=== PATIENT | female | born 1970 | race Two or more races ===

== ENCOUNTER → 2023-12-27 | Outpatient (CLI) | payer BC, SELFPAY ==
--- NOTE | 2023-12-27 14:00 | XR_ITS ---
EXAMINATION: PET/CT FUSION SKULL TO THIGH EXAM DATE AND TIME: December 27, 2023 1509 hours Comparison May 29, 2023 INDICATIONS: Diagnosis lung cancer restaging post treatment CTDI:vol (mGy) 3.01 DLP: (mGycm) 263.20 PROCEDURE: 15.05 mCi FDG was administered intravenously To allow for distribution and uptake of radiotracer, the patient was allowed to rest quietly in a shielded room. Imaging was performed on an integrated 16-slice PET/CT scanner, with scanning from the skull base to the mid thigh. Serum blood glucose at the time of the injection was measured 76 mg/dL. CT scanning was performed without oral or intravenous contrast material. FINDINGS: Head and Neck: There is no luca hypermetabolism in the neck. The visualized portions of the brain are normal in appearance on CT. Chest: Non hypermetabolic right midlung nodule measures 15 mm compared to 15 mm on the prior study Abdomen and Pelvis: There is no luca hypermetabolism in retroperitoneal or pelvic chains. The spleen is normal in size and FDG avidity. Musculoskeletal: Stable sclerotic osseous metastases T2, L3, L5, posterior right iliac bone, roof and posterior margin left acetabulum, bilateral ribs without significant change IMPRESSION: 15 mm pulmonary nodule right midlung compared to 15 mm on the prior study, no new pulmonary nodules Stable osteoblastic metastatic disease
[2023-12-27 14:19] LABS: HCG Qualitative,Urine Negative
== END | disposition home or self-care (01) ==
LOC: CDIM 13:19 → COPL 14:28 → CDIM 01-25 05:57
PROVIDERS: Referring Provider Internal Medicine Hematology & Oncology; Visit Provider Internal Medicine Hematology & Oncology
DX: R91.1 Solitary pulmonary nodule (principal); C79.9 Secondary malignant neoplasm of unspecified site; C34.31 Malignant neoplasm of lower lobe, right bronchus or lung; C79.51 Secondary malignant neoplasm of bone
CPT/HCPCS: 78815; 81025; A9552

== ENCOUNTER 2024-01-01 09:33 | Outpatient (RCR) | payer BC, SELFPAY ==
--- NOTE | 2024-01-01 10:16 | CTCFLWUP_ITS ---
Juan Marcos [facility] [address] [place], [place] [address] FOLLOW-UP NOTE Date: 01/01/2024 MR#: [id number] Name: CHAD ROMAN : 1970 Dx: C34.31 Malignant neoplasm of lower lobe, right bronchus or lung Identification. 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 EGFR exon 19 deleted on osimertinib under Dr. Caldwell's direction Received 3000 send right posterior chest 09/12/1992 with relief of pain in right posterior chest site. Did develop radiation pneumonitis now resolved. Most recent PET scan 12/27/2023 shows stable 15 mm pulmonary nodule right midlung. No new pulmonary nodules. Stable osteoblastic met disease, T2 L3 L5 and roof and posterior margin left acetabulum karli ateral ribs. MRI of brain 12/07/2023 negative. Has occasional bone pain relieved with tramadol 50 mg as needed. Rest of symptoms largely improved. Lungs clear. A#!. 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 #2, prior radiation therapy to the right posterior rib cage 3000 cGy completed 09/12/1992. Developed r adiation pneumonitis now largely resolved. #3. recent PET scan shows stable right midlung and bony mets. #4. Tolerating the osimertinib for the EGFR exon 19 deleted adeno CA. #5. Being followed by Dr. Caldwell regularly #6. Managing patient's mild pain symptoms with tramadol as needed. Will see her again in 3 months. Electronically signed by: Daniel Thompson M.D. 01/01/2024 10:14 AM
== END 2024-01-12 23:59 | disposition home or self-care (01) ==
LOC: SCTC 09:33
PROVIDERS: PCP Nurse Anesthetist, Certified Registered; Referring Provider Nurse Anesthetist, Certified Registered; Visit Provider Radiology Therapeutic Radiology
DX: C34.31 Malignant neoplasm of lower lobe, right bronchus or lung (principal); C79.51 Secondary malignant neoplasm of bone; G89.3 Neoplasm related pain (acute) (chronic)
CPT/HCPCS: 99213; G0463

== ENCOUNTER → 2024-02-19 | Outpatient (CLI) | payer BC, SELFPAY ==
[2024-02-19 14:33] LABS: Basophils % (Auto) 0 % (0-2.5); Eosinophils % (Auto) 1 % (0-10); Hematocrit 31.5 % (36.0-46.0); Hemoglobin 10.5 g/dL (12.0-16.0); Immature Granulocytes % (Auto) 0 % (0-0); Immature Granulocytes Auto 0.01 Thou/mm3 (0.00-0.00); Lymphocytes # (Auto) 1.7 Thou/mm3 (1.0-4.8); Lymphocytes % (Auto) 37 % (10-50); Mean Corpuscular HGB Conc 33.3 g/dl (31.0-37.0); Mean Corpuscular Hemoglobin 30.8 pg (25.0-35.0); Mean Corpuscular Volume 92 fL (80-100); Monocytes # (Auto) 0.4 Thou/mm3 (0.0-0.8); Monocytes % (Auto) 9 % (0-12); Neutrophils # (Auto) 2.4 Thou/mm3 (1.8-7.7); Neutrophils % (Auto) 52 % (37-80); Nucleated Red Blood Cell % 0 /100 WBC (0); Platelet Count 258 Thou/mm3 (140-440); RDW Standard Deviation 51.9 fL (36.4-46.3); Red Blood Count 3.41 Miln/mm3 (4.00-5.20); White Blood Count 4.5 Thou/mm3 (3.6-11.0)
[2024-02-19 14:45] LABS: Alanine Aminotransferase 42 U/L (10-49); Albumin, Serum 4.9 gm/dL (3.5-5.0); Albumin/Globulin Ratio 2.1 (1.2-2.2); Alkaline Phosphatase 109 U/L (46-116); Anion Gap 9 (7-16); Aspartate Amino Transferase 33 U/L (0-34); BUN/Creatinine Ratio 16 Ratio (12-20); Bilirubin,Total 0.6 mg/dL (0.3-1.2); Blood Urea Nitrogen 16 mg/dL (9-23); Calcium 9.5 mg/dL (8.3-10.6); Calcium (Corrected) 9.5 mg/dL (8.5-10.1); Carbon Dioxide 27.5 mMol/L (20.0-31.0); Cardiac Risk Estimate 3.3 RATIO (3.7-5.6); Chloride 103 mMol/L (98-107); Cholesterol 273 mg/dL (132-200); Globulin 2.3 gm/dL (2.3-3.5); Glucose 92 mg/dL (74-106); HDL Cholesterol 83 mg/dL (40-60); LDL Cholesterol,Calculated 176 mg/dL (0-130); Osmolality,Calculated 278 (275-295); Potassium 4.4 mMol/L (3.4-5.1); Sodium 139 mMol/L (136-145); Total Protein 7.2 gm/dL (5.7-8.2); Triglycerides 70 mg/dL (30-150); eGFR > 60 See Note
[2024-02-20 02:38] LABS: Ferritin 43 ng/mL (7.3-270.7); Iron 71 mcg/dL (50-170); Percent Iron Saturation 22 % (20-55); Total Iron Binding Capacity 315 mcg/dL (250-425); Unsaturated Iron Binding 244 (225-295)
== END | disposition home or self-care (01) ==
LOC: COPL 13:28
PROVIDERS: PCP Nurse Anesthetist, Certified Registered; Referring Provider Nurse Anesthetist, Certified Registered; Visit Provider Internal Medicine Hematology & Oncology
DX: C34.31 Malignant neoplasm of lower lobe, right bronchus or lung (principal); C79.51 Secondary malignant neoplasm of bone; E78.5 Hyperlipidemia, unspecified; D64.9 Anemia, unspecified
CPT/HCPCS: 36415; 80053; 80061; 82728; 83540; 83550; 85025

== ENCOUNTER 2024-02-20 15:57 | Outpatient (RCR) | payer BC, SELFPAY ==
--- NOTE | 2024-02-21 01:29 | CTCFLWUP_ITS ---
Patient: CHAD ROMAN : 1970 Page 8 of 9 FOLLOW UP NOTE DATE OF SERVICE: 02/20/2024 NAME: CHAD ROMAN ACCOUNT: [id number] : 1970 AGE: 53 INTERVAL HISTORY: Patient feels better now as her radiation pneumonitis have resolved. Patient is doing very well on T agrisso. 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 Patient denies any history of cigarette smoking or exposure to secondhand smoking. 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 Improved Sta tus postradiation therapy to the right posterior chest (08/30/2022 - 09/12/2022) Status post radiation p neumonitis treated with prednisone (11/08/2022) Stage IV EGFR exon 19 deleted adenocarcinoma of the gamal ng with osseous metastasis (05/09/2022) Osimertinib started on 06/08/2022. Ms. Roman is a non-smoker. No history of exposure to secondhand smoking 04/07/2022: Ms. Roman had ultrasound of the soft tissue of the neck to evaluate palpable lump on the l eft side of the neck. 04/12/2022: CT scan of soft tissue of the neck and chest with IV contrast? 05/09/2022: Patient had CT-guided biopsy of the right lung mass? 06/08/2022: Patient started on osimertinib 80 mg p.o. daily. 06/09/2022: PET/CT scan? 07/04/22: MRI thoracic spine wo/w contrast 07/04/22: MRI lumbar spine wo/w contrast 08/30/2022 - 09/12/2022: Ms. Roman had 3000 cGy radiation therapy to the right posterior chest. 11/08/2022: Radiation pneumonitis. Patient is started on prednisone. 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 Caltrate-600 Plus Vitamin D3 - 600 mg(1,500mg) -400 unit 1 tab Twice a Day 2. Lipitor - 10 mg 1 tab Daily 3. osimertinib - 80 mg 1 tab Daily 4. traMADol - 50 mg 1 tab q6 Medications Last Reconciled by Vale Huang MA on 02/20/2024 ALLERGIES: No Known Allergies REVIEW OF SYSTEMS: A complete 14-point review of systems was performed and is negative except as noted in interval histo ry. PHYSICAL EXAMINATION: VITAL SIGNS: PAIN: 0 - No pain ECOG Performance Status: 0 - Asymptomatic and fully active GENERAL APPEARANCE: Appears well, in no apparent distress, appropriately interactive. HEENT: Normocephalic, no temporal wasting, normal conjunctiva, no scleral icterus, normal hearing, li ps without lesions, neck normal range of motion. CARDIOVASCULAR: Not assessed. PULMONARY: Normal respiratory effort, no respiratory distress or use of accessory muscles, speaking i n full sentences, no tachypnea. EXTREMITIES: No pedal edema or cyanosis. SKIN: Normal skin appearance. NEUROLOGIC: Alert and oriented x4. PSHYCHIATRIC: Appropriate affect, mood normal, behavior normal, intact thought and speech. LABORATORY DATA: I have personally reviewed and interpreted each of the patient?s relevant lab tests, abnormal finding s are below: Date 02/19/24 ??WHITE?BLOOD?COUNT?(Thou/mm3) 4.5 ??RED?BLOOD?COUNT?(Miln/mm3) 3.41?L ??HEMOGLOBIN?(gm/dl) 10.5?L ??HEMATOCRIT?(%) 31.5?L ??PLATELET?COUNT?(Thou/mm3) 258 ??NEUTROPHILS?%,?AUTO?(%) 52 ??LYMPH?%,?AUTO?(%) 37 ??NEUTROPHILS,?AUTO?(Thou/mm3) 2.4 ASSESSMENT/PLAN: #1 stage IV metastatic adenocarcinoma of the lung Stage IV EGFR exon 19 deleted adenocarcinoma of th e lung with osseous metastasis (05/09/2022) Status postradiation therapy to the right posterior chest completed on 09/12/2022 Tolerating osimertinib well with mild occasional diarrhea. Last PET scan reviewed and shows complete metabolic response patient is non-smoker Consult for adhere nce to therapy Continue osimertinib 80 mg daily Will get brain MRI to stage Need echocardiogram every 3 months #2 osteolytic lesions from metastatic disease Continue taking calcium and vitamin 0 daily Patient have peritoneal disease and need dental workup. Advised to stop Xgeva and wait for another 3 to 4 months and get the dental procedure done. After waiting for 3 to 4 months at that time will re sume Xgeva. Brain MRI is negative and echo is stable CBC CMP every month imaging every 3 to 6 months echo every 3 months ORDERS: Echocardiogram in 3 months CBC CMP RETURN TO CLINIC: And will do PET CT scan at that timeI will see her back in the clinic in 3 months. BILLING AND COMPLIANCE: I reviewed external records from providers outside my specialty as summarized above. I spent a total of 50 minutes on this patient?s care on the day of their visit excluding time spent related to any bi lled procedures. This time includes time spent with the patient as well as time spent documenting in the medical record, reviewing patients records and tests, obtaining history, placing orders, communi cating with other healthcare professionals, counseling the patient, family or caregiver, and/or care coordination for the diagnoses above. Electronically Signed by: Dylan Caldwell MD T: 1:27 AM CC: PCP: Sunday Saravia Referring: Sunday Saravia This document was completed utilizing speech recognition software. Grammatical errors, random word in sertions, pronoun errors, and incomplete sentences are an occasional consequence of this system due t o software limitations, ambient noise, and hardware issues. Any formal questions or concerns about th e content, text or information contained within the body of this dictation should be directly address ed to the provider for clarification.
== END 2024-03-14 23:59 | disposition home or self-care (01) ==
LOC: SCTC 15:57
PROVIDERS: PCP Nurse Anesthetist, Certified Registered; Referring Provider Nurse Anesthetist, Certified Registered; Visit Provider Internal Medicine Hematology & Oncology
DX: C34.31 Malignant neoplasm of lower lobe, right bronchus or lung (principal); C79.51 Secondary malignant neoplasm of bone; Z92.3 Personal history of irradiation
CPT/HCPCS: 99212; G0463

== ENCOUNTER 2024-04-02 08:42 | Outpatient (RCR) | payer BC, SELFPAY ==
--- NOTE | 2024-04-02 09:21 | CTCFLWUP_ITS ---
Juan Marcos [facility] [address] [place], [place] [address] FOLLOW-UP NOTE Date: 04/02/2024 MR#: [id number] Name: CHAD ROMAN : 1970 Dx: C34.31 Malignant neoplasm of lower lobe, right bronchus or lung Identification. 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 EGFR exon 19 deleted on osimertinib under Dr. Caldwell's direction. Received 2000 cGy right posterior chest 09/12/2022 with relief of pain in right posterior chest site. Did develop radiation pneumonitis now resolved. Most recent PET scan 12/27/2023 shows stable 15 mm pulmonary nodule right midlung with no new pulmonary nodules. Stable osteoblastic met disease: T2 L3 L5 and roof and posterior margin left acetabular bilateral ribs. Recent echo 03/13/2024 appears stable compared to 12/06/2023. A#1. Stage IV metastatic adenocarcinoma lung EGFR exon 19 deleted adeno CA the lung with the osseous mets. A#2. XRT to posterior chest site with relief of pain symptoms. Pneumonitis resolved. A#3. On osimertinib under Dr. Caldwell's direction. A#4. Xgeva is currently being held due to dental work being planned. A#5, Pain is fairly mild using tramadol only sparingly. A#6. I will see patient again in 3 months. Electronically signed by: Daniel Thompson M.D. 04/02/2024 9:18 AM
== END 2024-04-11 23:59 | disposition home or self-care (01) ==
LOC: SCTC 08:42
PROVIDERS: PCP Family Medicine; Referring Provider Family Medicine; Visit Provider Radiology Therapeutic Radiology
DX: C34.31 Malignant neoplasm of lower lobe, right bronchus or lung (principal); C79.51 Secondary malignant neoplasm of bone
CPT/HCPCS: 99212; G0463

== ENCOUNTER → 2024-05-15 | Outpatient (CLI) | payer BC, SELFPAY ==
[2024-05-15 14:27] LABS: Basophils % (Auto) 0 % (0-2.5); Eosinophils # (Auto) 0.1 Thou/mm3 (0.0-0.5); Eosinophils % (Auto) 2 % (0-10); Hemoglobin 11.5 g/dL (12.0-16.0); Immature Granulocytes % (Auto) 1 % (0-0); Immature Granulocytes Auto 0.05 Thou/mm3 (0.00-0.00); Lymphocytes # (Auto) 1.7 Thou/mm3 (1.0-4.8); Lymphocytes % (Auto) 29 % (10-50); Mean Corpuscular HGB Conc 33.8 g/dl (31.0-37.0); Mean Corpuscular Hemoglobin 30.8 pg (25.0-35.0); Mean Corpuscular Volume 91 fL (80-100); Monocytes # (Auto) 0.5 Thou/mm3 (0.0-0.8); Monocytes % (Auto) 9 % (0-12); Neutrophils # (Auto) 3.4 Thou/mm3 (1.8-7.7); Neutrophils % (Auto) 59 % (37-80); Nucleated Red Blood Cell % 0 /100 WBC (0); Platelet Count 220 Thou/mm3 (140-440); RDW Standard Deviation 49.1 fL (36.4-46.3); Red Blood Count 3.73 Miln/mm3 (4.00-5.20); White Blood Count 5.7 Thou/mm3 (3.6-11.0)
[2024-05-15 14:33] LABS: Alanine Aminotransferase 51 U/L (10-49); Albumin, Serum 4.9 gm/dL (3.5-5.0); Albumin/Globulin Ratio 1.7 (1.2-2.2); Alkaline Phosphatase 107 U/L (46-116); Anion Gap 11 (7-16); Aspartate Amino Transferase 58 U/L (0-34); BUN/Creatinine Ratio 13 Ratio (12-20); Bilirubin,Total 0.8 mg/dL (0.3-1.2); Blood Urea Nitrogen 13 mg/dL (9-23); Calcium 9.7 mg/dL (8.3-10.6); Calcium (Corrected) 9.7 mg/dL (8.5-10.1); Carbon Dioxide 23.8 mMol/L (20.0-31.0); Chloride 102 mMol/L (98-107); Globulin 2.9 gm/dL (2.3-3.5); Glucose 97 mg/dL (74-106); Osmolality,Calculated 273 (275-295); Potassium 4.4 mMol/L (3.4-5.1); Sodium 137 mMol/L (136-145); Total Protein 7.8 gm/dL (5.7-8.2); eGFR > 60 See Note
== END | disposition home or self-care (01) ==
LOC: SCTO 12:52
PROVIDERS: PCP Family Medicine; Referring Provider Internal Medicine Hematology & Oncology; Visit Provider Internal Medicine Hematology & Oncology
DX: C34.31 Malignant neoplasm of lower lobe, right bronchus or lung (principal); C79.51 Secondary malignant neoplasm of bone
CPT/HCPCS: 36415; 80053; 85025

== ENCOUNTER → 2024-05-27 | Outpatient (CLI) | payer BC, SELFPAY ==
--- NOTE | 2024-05-27 13:30 | ECHO_ITS ---
Transthoracic Echo Report Ht (in): 59 Wt (lb): 125 Exam Location: Echo Lab Status: Preadmit Refurbish Technician: NATALYA Aguirre^^^^ Indications: Procedure Performed: BP: / HR: MEASUREMENTS (Male / Female) Normal Values 2D ECHO LVOT Diameter 1.4 cm Aortic Root Diameter 2.6 cm LA Systolic Diameter LX 2.6 cm 3.0 - 4.0 / 2.7 - 3.8 cm LV Ejection Fraction MOD 4C 67.1 % LV Ejection Fraction 4C AL 67.7 % DOPPLER AV Peak Velocity 135.0 cm/s AV Peak Gradient 7.3 mmHg AV Mean Gradient 4.0 mmHg AV Velocity Time Integral 26.0 cm LVOT Peak Velocity 70.2 cm/s LVOT Peak Gradient 2.0 mmHg LVOT Velocity Time Integral 18.9 cm AV Area Cont Eq vti 1.1 cm? AV Area Cont Eq pk 0.8 cm? MV Area PHT 5.6 cm? MR Peak Velocity 270.0 cm/s MR Peak Gradient 29.2 mmHg Mitral E Point Velocity 99.8 cm/s Mitral A Point Velocity 91.1 cm/s Mitral E to A Ratio 1.1 LV E' Septal Velocity 54.1 cm/s Mitral E to LV E' Septal Ratio 1.8 TR Peak Velocity 178.0 cm/s TR Peak Gradient 12.7 mmHg PV Peak Velocity 93.3 cm/s PV Peak Gradient 3.5 mmHg RVOT Peak Velocity 63.5 cm/s FINDINGS Left Ventricle Normal left ventricular size, wall thickness, systolic function with no obvious regional wall motion abnormalities. Normal left ventricular diastolic filling pattern for age. The ejection fraction is visually estimated at 60-65 %. Right Ventricle The right ventricle is normal in size and systolic function. The estimated right ventricular systolic pressure, 17 mmHg. Left Atrium The left atrium is normal by two-dimensional, color flow and Doppler imaging with no structural abnormalities, no thrombus formation present. Right Atrium The right atrium is normal by two-dimensional imaging, color flow and Doppler imaging with no structural abnormalities, no thrombus formation present. Atrial Septum The interatrial septum appears normal with no evidence of a shunt. Aorta The aorta is normal by two-dimensional, color flow and Doppler interrogation. Mitral Valve Mild mitral regurgitation. Mild mitral annular calcification. Aortic Valve Aortic valve sclerosis. Tricuspid Valve There is mild tricuspid valve regurgitation. Pulmonic Valve The pulmonic valve is not well visualized. There is no significant pulmonic valve regurgitation. Vessels The pulmonary artery appears normal. The inferior vena cava pulmonary and hepatic veins appear normal. Pericardium The pericardium is normal by two-dimensional imaging. There is no significant pericardial effusion. CONCLUSIONS indication: Cancer center The transthoracic study is normal by two-dimensional, color flow imaging and Doppler interrogation. Normal left ventricular size and function. Approximate ejection fraction is 65%. Trace mitral and trace tricuspid regurgitation No wall motion abnormalities seen Alona Corley (Electronically Signed) Final Date: 28 May 2024 11:54
== END | disposition home or self-care (01) ==
PROVIDERS: PCP Family Medicine; Referring Provider Internal Medicine Hematology & Oncology; Visit Provider Internal Medicine Hematology & Oncology
DX: I08.1 Rheumatic disorders of both mitral and tricuspid valves (principal); C34.31 Malignant neoplasm of lower lobe, right bronchus or lung; C79.51 Secondary malignant neoplasm of bone
CPT/HCPCS: 93306

== ENCOUNTER → 2024-06-06 | Outpatient (CLI) | payer BC, SELFPAY ==
[2024-06-06 12:56] LABS: Basophils % (Auto) 1 % (0-2.5); Eosinophils # (Auto) 0.1 Thou/mm3 (0.0-0.5); Eosinophils % (Auto) 2 % (0-10); Hematocrit 32.5 % (36.0-46.0); Hemoglobin 11.1 g/dL (12.0-16.0); Immature Granulocytes % (Auto) 0 % (0-0); Immature Granulocytes Auto 0.01 Thou/mm3 (0.00-0.00); Lymphocytes # (Auto) 1.8 Thou/mm3 (1.0-4.8); Lymphocytes % (Auto) 33 % (10-50); Mean Corpuscular HGB Conc 34.2 g/dl (31.0-37.0); Mean Corpuscular Hemoglobin 30.8 pg (25.0-35.0); Mean Corpuscular Volume 90 fL (80-100); Monocytes # (Auto) 0.6 Thou/mm3 (0.0-0.8); Monocytes % (Auto) 12 % (0-12); Neutrophils # (Auto) 2.8 Thou/mm3 (1.8-7.7); Neutrophils % (Auto) 52 % (37-80); Nucleated Red Blood Cell % 0 /100 WBC (0); Platelet Count 241 Thou/mm3 (140-440); RDW Standard Deviation 50.6 fL (36.4-46.3); White Blood Count 5.4 Thou/mm3 (3.6-11.0)
[2024-06-06 13:15] LABS: Alanine Aminotransferase 14 U/L (10-49); Albumin, Serum 4.6 gm/dL (3.5-5.0); Albumin/Globulin Ratio 1.8 (1.2-2.2); Alkaline Phosphatase 64 U/L (46-116); Anion Gap 9 (7-16); Aspartate Amino Transferase 23 U/L (0-34); BUN/Creatinine Ratio 12 Ratio (12-20); Bilirubin,Total 0.8 mg/dL (0.3-1.2); Blood Urea Nitrogen 12 mg/dL (9-23); Calcium 9.6 mg/dL (8.3-10.6); Calcium (Corrected) 9.6 mg/dL (8.5-10.1); Carbon Dioxide 27.7 mMol/L (20.0-31.0); Chloride 105 mMol/L (98-107); Globulin 2.6 gm/dL (2.3-3.5); Glucose 94 mg/dL (74-106); Osmolality,Calculated 282 (275-295); Potassium 3.9 mMol/L (3.4-5.1); Sodium 142 mMol/L (136-145); Total Protein 7.2 gm/dL (5.7-8.2); eGFR > 60 See Note
== END | disposition home or self-care (01) ==
LOC: SCTO 12:01
PROVIDERS: PCP Family Medicine; Referring Provider Internal Medicine Hematology & Oncology; Visit Provider Internal Medicine Hematology & Oncology
DX: C34.31 Malignant neoplasm of lower lobe, right bronchus or lung (principal); C79.51 Secondary malignant neoplasm of bone
CPT/HCPCS: 36415; 80053; 85025

== ENCOUNTER 2024-06-09 15:28 | Outpatient (RCR) | payer BC, SELFPAY ==
--- NOTE | 2024-05-20 22:45 | CTCFLWUP_ITS ---
Patient: CHAD ROMAN : 1970 Page 8 of 9 FOLLOW UP NOTE DATE OF SERVICE: 05/20/2024 NAME: CHAD ROMAN ACCOUNT: [id number] : 1970 AGE: 53 INTERVAL HISTORY: Patient is very restless. She has developed a rash on her legs as well as on her buttocks. She has been planning for a trip to [place]. Patient has been trying to lose weight and have lost about 11 pounds. Patient feels dizzy at times. 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 Patient denies any history of cigarette smoking or exposure to secondhand smoking. 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 Ms. Roman is a non-smoker. No history of exposure to secondhand smoking 04/07/2022: Ms. Roman had ultrasound of the soft tissue of the neck to evaluate palpable lump on the left side of the neck. 04/12/2022: CT scan of soft tissue of the neck and chest with IV contrast? 05/09/2022: Patient had CT-guided biopsy of the right lung mass? 06/08/2022: Patient started on osimertinib 80 mg p.o. daily. 06/09/2022: PET/CT scan? 07/04/22: MRI thoracic spine wo/w contrast 07/04/22: MRI lumbar spine wo/w contrast 08/30/2022 - 09/12/2022: Ms. Roman had 3000 cGy radiation therapy to the right posterior chest. 11/08/2022: Radiation pneumonitis. Patient is started on prednisone. 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 Caltrate-600 Plus Vitamin D3 - 600 mg(1,500mg) -400 unit 1 tab Twice a Day 2. Lipitor - 10 mg 1 tab Daily 3. osimertinib - 80 mg 1 tab Daily 4. traMADol - 50 mg 1 tab q6 5. Triamcinolone Acetonide (Top) - 0.025 % As directed Medications Last Reconciled by Annmarie Gramajo RN on 05/20/2024 ALLERGIES: No Known Allergies REVIEW OF SYSTEMS: A complete 14-point review of systems was performed and is negative except as noted in interval history. PHYSICAL EXAMINATION: VITAL SIGNS: Temperature?98.1, B/P?102/66, Oxygen?Saturation?97% Weight?120?lbs PAIN: 0 - No pain ECOG Performance Status: 1 - Symptomatic; ambulatory; restricted in strenuous activity GENERAL APPEARANCE: Appears well, in no apparent distress, appropriately interactive. HEENT: Normocephalic, no temporal wasting, normal conjunctiva, no scleral icterus, normal hearing, lips without lesions, neck normal range of motion. CARDIOVASCULAR: Not assessed. PULMONARY: Normal respiratory effort, no respiratory distress or use of accessory muscles, speaking in full sentences, no tachypnea. EXTREMITIES: No pedal edema or cyanosis. SKIN: Normal skin appearance. NEUROLOGIC: Alert and oriented x4. PSHYCHIATRIC: Appropriate affect, mood normal, behavior normal, intact thought and speech. LABORATORY DATA: I have personally reviewed and interpreted each of the patient?s relevant lab tests, abnormal findings are below: Date 02/19/24 05/15/24 ??WHITE?BLOOD?COUNT?(Thou/mm3) 4.5 5.7 ??RED?BLOOD?COUNT?(Miln/mm3) 3.41?L 3.73?L ??HEMOGLOBIN?(gm/dl) 10.5?L 11.5?L ??HEMATOCRIT?(%) 31.5?L 34.0?L ??PLATELET?COUNT?(Thou/mm3) 258 220 ??NEUTROPHILS?%,?AUTO?(%) 52 59 ??LYMPH?%,?AUTO?(%) 37 29 ??NEUTROPHILS,?AUTO?(Thou/mm3) 2.4 3.4 ??GLUCOSE,RANDOM?(mg/dL) 92 97 ??BLOOD?UREA?NITROGEN?(mg/dL) 16 13 ??CREATININE?(mg/dL) 1.00 1.00 ??SODIUM?(mmol/L) 139 137 ??POTASSIUM?(mmol/L) 4.4 4.4 ??CHLORIDE?(mmol/L) 103 102 ??CrCl?(CandG)?(ml/min) 61.48 62.43 ??AST/SGOT?(Unit/L) 33 58?H ??ALT/SGPT?(Unit/L) 42 51?H ??ALKALINE?PHOSPHATASE?(Unit/L) 109 107 ??BILIRUBIN,?TOTAL?(mg/dL) 0.6 0.8 ??PROTEIN?TOTAL?(gm/dl) 7.2 7.8 ??ALBUMIN,?SERUM?(gm/dl) 4.9 4.9 ??GLOBULIN?(gm/dl) 2.3 2.9 ??ALBUMIN/GLOBULIN?RATIO 2.1 1.7 ??CALCIUM,?SERUM?(mg/dL) 9.5 9.7 ??CALCIUM?SERUM?(CORRECTED)?(mg/dL) 9.5 9.7 ASSESSMENT/PLAN: #1 stage IV metastatic adenocarcinoma of the lung 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 Last PET scan reviewed and shows complete metabolic response patient is non- smoker Consult for adherence to therapy Continue osimertinib 80 mg daily Echo is stable #2 rash likely from Tagrisso Hold Tagrisso and all other supplements Will start on hydroxyzine and prednisone Once rash resolves. Will restart Tagrisso and see if reoccurs #3 dizziness Patient's blood pressure is very low and have tachycardia Patient has not taken any water since morning Encouraged oral hydration Will bring her to get IV fluids .. Advised patient to take balanced diet and not to do extreme dieting to lose weight Labs and fluids tomorrow Even though patient's weight loss may be because of restriction of diet by Ms. Roman it is concerning as patient have stage IV cancer Will get PET CT scan to evaluate recurrent cancer I will also get a brain MRI as patient has been having dizziness ORDERS: Order # Description [id number] Comprehensive Metabolic Panel - 12 + CBC with Auto Diff [id number] Follow Up 4 Week RETURN TO CLINIC: 4 weeks BILLING AND COMPLIANCE: I reviewed external records from providers outside my specialty as summarized above. I spent a total of 50 minutes on this patient?s care on the day of their visit excluding time spent related to any billed procedures. This time includes time spent with the patient as well as time spent documenting in the medical record, reviewing patients records and tests, obtaining history, placing orders, communicating with other healthcare professionals, counseling the patient, family or caregiver, and/or care coordination for the diagnoses above. Electronically Signed by: Dylan Caldwell MD T: 10:43 PM CC: PCP: Shaila Read Referring: Shaila Read This document was completed utilizing speech recognition software. Grammatical errors, random word insertions, pronoun errors, and incomplete sentences are an occasional consequence of this system due to software limitations, ambient noise, and hardware issues. Any formal questions or concerns about the content, text or information contained within the body of this dictation should be directly addressed to the provider for clarification.
[2024-05-21 16:28] LABS: Alanine Aminotransferase 22 U/L (10-49); Albumin, Serum 4.5 gm/dL (3.5-5.0); Albumin/Globulin Ratio 1.6 (1.2-2.2); Alkaline Phosphatase 85 U/L (46-116); Anion Gap 10 (7-16); Aspartate Amino Transferase 29 U/L (0-34); BUN/Creatinine Ratio 11 Ratio (12-20); Bilirubin,Total 0.5 mg/dL (0.3-1.2); Blood Urea Nitrogen 11 mg/dL (9-23); Calcium 9.1 mg/dL (8.3-10.6); Calcium (Corrected) 9.1 mg/dL (8.5-10.1); Carbon Dioxide 23.2 mMol/L (20.0-31.0); Chloride 103 mMol/L (98-107); Globulin 2.8 gm/dL (2.3-3.5); Glucose 108 mg/dL (74-106); Osmolality,Calculated 272 (275-295); Potassium 3.5 mMol/L (3.4-5.1); Sodium 136 mMol/L (136-145); Total Protein 7.3 gm/dL (5.7-8.2); eGFR > 60 See Note
--- NOTE | 2024-06-10 01:30 | CTCFLWUP_ITS ---
Patient: CHAD ROMAN : 1970 Page 9 of 11 FOLLOW UP NOTE DATE OF SERVICE: 06/09/2024 NAME: CHAD ROMAN ACCOUNT: [id number] : 1970 AGE: 53 INTERVAL HISTORY: Cuong Hopkins, a 53-year-old female with a history of lung cancer on Tagrisso, presents with a persistent rash on her legs and buttocks, whitening of eyebrows, and morning stiffness. The rash developed after a trip to [place] and has not fully resolved despite stopping Tagrisso and treatment with prednisone and hydroxyzine. She reports difficulty getting up in the morning, suggesting possible joint pain. A dermatology evaluation and possible biopsy are needed for the rash, and further evaluation is required for her joint symptoms. Tagrisso will be restarted, and a PET scan and brain MRI will be ordered to assess cancer response and monitor for metastases. Chief Complaint Persistent rash on legs and buttocks, whitening of eyebrows, difficulty getting up from bed in the morning History of Present Illness Cuong Hopkins, a 53-year-old female with a history of lung cancer on Tagrisso treatment, presents for follow-up of a persistent rash on her legs and buttocks that developed after a trip to [place] approximately 20 days ago. The patient initially experienced light-headedness and dizziness, which have since resolved. The rash, which began after the patient's [place] trip, has improved but not fully resolved despite treatment. It is described as resembling eczema and is located on the legs and buttocks. The patient reports that the rash is itchy. Previous rord-vev-olubpcv treatments that helped with past eczema-like symptoms have not been effective for this current rash. The patient's eyebrows are also whitening, which is noted as unusual for her age. In addition to the skin concerns, the patient reports difficulty getting up from bed in the morning, suggesting possible joint stiffness or pain. It is unclear if this symptom varies throughout the day or if there are any associated joint swelling or deformities. The patient discontinued Tagrisso on May 21 due to the rash and has been off the medication for about 20 days. She was previously treated with prednisone and hydroxyzine for the rash, which provided some improvement but did not fully resolve the symptoms. The patient has not yet seen a stoneworking belt sander for evaluation of the rash or had a biopsy performed. The patient mentions a positive LUIS test result but does not report any specific symptoms typically associated with autoimmune conditions, such as joint pain, stiffness, or swelling. She is planning a trip to [place] on June 30. Medical History - Lung cancer, on Tagrisso treatment for a couple of years - Eczema, history unclear but mentioned as a possibility - Positive LUIS test, significance unclear without symptoms Medications and Supplements - Tagrisso - Stopped on May 21 due to rash. - Prednisone - Given for rash. - Hydroxyzine - Given for rash. Social History - Travel: Recent trip to [place], planning another trip to [place] on June 30 - Diet: Was trying to lose weight, advised to stop dieting and resume normal food intake - Stress: Eczema can occur under stress (implied patient may be experiencing stress) - Lifestyle: Advised to avoid synthetic fabrics and use 100% cotton clothing - Hygiene: Recommended to avoid daily showers, take water-only showers if necessary Review of Systems General: Positive for dizziness (resolved), light-headedness (resolved). Skin: Positive for persistent rash on legs and buttocks, itching. Negative for eczema history. HEENT: Positive for whitening eyebrows. Musculoskeletal: Positive for difficulty getting up from bed in the morning, joint pain. ONCOLOGY HISTORY:?[facility] Hx? 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 Patient denies any history of cigarette smoking or exposure to secondhand smoking. 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 Ms. Roman is a non-smoker. No history of exposure to secondhand smoking 04/07/2022: Ms. Roman had ultrasound of the soft tissue of the neck to evaluate palpable lump on the left side of the neck. 04/12/2022: CT scan of soft tissue of the neck and chest with IV contrast? 05/09/2022: Patient had CT-guided biopsy of the right lung mass? 06/08/2022: Patient started on osimertinib 80 mg p.o. daily. 06/09/2022: PET/CT scan? 07/04/22: MRI thoracic spine wo/w contrast 07/04/22: MRI lumbar spine wo/w contrast 08/30/2022 - 09/12/2022: Ms. Roman had 3000 cGy radiation therapy to the right posterior chest. 11/08/2022: Radiation pneumonitis. Patient is started on prednisone. 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 Caltrate-600 Plus Vitamin D3 - 600 mg(1,500mg) -400 unit 1 tab Twice a Day 2. hydrOXYzine HCl - 10 mg 1 tab Daily 3. Lipitor - 10 mg 1 tab Daily 4. omeprazole - 20 mg 1 tab Daily 5. osimertinib - 80 mg 1 tab Daily 6. traMADol - 50 mg 1 tab q6 7. Triamcinolone Acetonide (Top) - 0.025 % As directed?[facility] Meds? Medications Last Reconciled by Ashley Hudson MA on 06/09/2024 ALLERGIES: No Known Allergies REVIEW OF SYSTEMS: A complete 14-point review of systems was performed and is negative except as noted in interval history. PHYSICAL EXAMINATION:?[facility] PE? VITAL SIGNS: Temperature?99.2, B/P?108/73, Oxygen?Saturation?98% Weight?121?lbs (Change?since?05/21/24:?-3.4?lbs) PAIN: 0 - No pain ECOG Performance Status: 1 - Symptomatic; ambulatory; restricted in strenuous activity GENERAL APPEARANCE: Appears well, in no apparent distress, appropriately interactive. HEENT: Normocephalic, no temporal wasting, normal conjunctiva, no scleral icterus, normal hearing, lips without lesions, neck normal range of motion. CARDIOVASCULAR: Not assessed. PULMONARY: Normal respiratory effort, no respiratory distress or use of accessory muscles, speaking in full sentences, no tachypnea. EXTREMITIES: No pedal edema or cyanosis. SKIN: Rash present on legs and buttocks. Rash has improved but not fully resolved. Appearance consistent with eczema.. NEUROLOGIC: Alert and oriented x4. PSHYCHIATRIC: Appropriate affect, mood normal, behavior normal, intact thought and speech. LABORATORY DATA: I have personally reviewed and interpreted each of the patient?s relevant lab tests, abnormal findings are below: Date 05/15/24 05/21/24 06/06/24 ??WHITE?BLOOD?COUNT?(Thou/mm3) ? ? 5.4 ??RED?BLOOD?COUNT?(Miln/mm3) ? ? 3.60?L ??HEMOGLOBIN?(gm/dl) ? ? 11.1?L ??HEMATOCRIT?(%) ? ? 32.5?L ??PLATELET?COUNT?(Thou/mm3) ? ? 241 ??NEUTROPHILS?%,?AUTO?(%) ? ? 52 ??LYMPH?%,?AUTO?(%) ? ? 33 ??NEUTROPHILS,?AUTO?(Thou/mm3) ? ? 2.8 ??GLUCOSE,RANDOM?(mg/dL) 97 108?H 94 ??BLOOD?UREA?NITROGEN?(mg/dL) 13 11 12 ??CREATININE?(mg/dL) 1.00 1.00 1.00 ??SODIUM?(mmol/L) 137 136 142 ??POTASSIUM?(mmol/L) 4.4 3.5 3.9 ??CHLORIDE?(mmol/L) 102 103 105 ??CrCl?(CandG)?(ml/min) 62.43 59.29 59.29 ??AST/SGOT?(Unit/L) 58?H 29 23 ??ALT/SGPT?(Unit/L) 51?H 22 14 ??ALKALINE?PHOSPHATASE?(Unit/L) 107 85 64 ??BILIRUBIN,?TOTAL?(mg/dL) 0.8 0.5 0.8 ??PROTEIN?TOTAL?(gm/dl) 7.8 7.3 7.2 ??ALBUMIN,?SERUM?(gm/dl) 4.9 4.5 4.6 ??GLOBULIN?(gm/dl) 2.9 2.8 2.6 ??ALBUMIN/GLOBULIN?RATIO 1.7 1.6 1.8 ??CALCIUM,?SERUM?(mg/dL) 9.7 9.1 9.6 ??CALCIUM?SERUM?(CORRECTED)?(mg/dL) 9.7 9.1 9.6 Physical Examination Skin: Rash present on legs and buttocks. Rash has improved but not fully resolved. Appearance consistent with eczema. Laboratory, Imaging, and Diagnostic Test Results - LUIS: PositiveASSESSMENT/PLAN:?Aurelio Caldwell Assessment/Plan? 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 Last PET scan reviewed and shows complete metabolic response patient is non- smoker Consult for adherence to therapy rash likely from Tagrisso Hold Tagrisso and all other supplements Will start on hydroxyzine and prednisone Once rash resolves. Will restart Tagrisso and see if reoccurs #3 dizziness Resolved Cuong Hopkins, a 53-year-old female with a history of lung cancer on Tagrisso, presents with persistent rash on legs and buttocks after a trip to [place], along with morning stiffness and joint pain. Persistent rash Assessment: Patient developed a rash on legs and buttocks after a trip to [place]. The rash has improved but persists despite stopping Tagrisso and treatment with prednisone and hydroxyzine. The appearance is consistent with eczema, though a definitive diagnosis has not been made. Differential diagnoses include drug-related rash from Tagrisso versus eczema. The rash has not fully resolved after 20 days off Tagrisso. A dermatology evaluation and possible biopsy are needed for definitive diagnosis. Plan: - Restart Tagrisso before upcoming [place] trip on June 30 - Apply triamcinolone cream twice daily until symptoms disappear - Use non-scented soap and consider oatmeal or milk baths - Avoid hot water baths and use CeraVe or similar moisturizers - Wear 100% cotton clothing and avoid synthetic fabrics - Schedule follow-up appointment with stoneworking belt sander for evaluation and possible biopsy - Monitor for worsening symptoms; if occurs, stop Tagrisso and return for evaluation - Follow-up appointment in 2 weeks Lung cancer on Tagrisso therapy Assessment: Patient has been on Tagrisso for a couple of years for lung cancer treatment. Current status of cancer response is unknown. Treatment was temporarily discontinued due to rash. There is a need to assess cancer response and monitor for potential brain metastases. Plan: - Restart Tagrisso before [place] trip on June 30 - Order PET scan to assess cancer response - Order brain MRI to monitor for potential brain metastases (to be done one month after PET scan) - Educate patient on sun protection while on Tagrisso - Monitor for worsening symptoms after restarting Tagrisso Joint pain and morning stiffness Assessment: Patient reports difficulty getting up from bed in the morning and joint pain. These symptoms could be related to Tagrisso side effects or potentially indicate rheumatological issues. A positive LUIS test was noted, but without other symptoms, its clinical significance is unclear. Further evaluation is needed to determine the cause and appropriate management. Plan: - Monitor joint symptoms and their variation throughout the day - Check rheumatoid factor - Consider referral to rheumatology if symptoms persist or worsen ORDERS: Order # Description [id number] + Comprehensive Metabolic Panel - 12 + CBC with Auto Diff RETURN TO CLINIC: BILLING AND COMPLIANCE: I reviewed external records from providers outside my specialty as summarized above. I spent a total of 50 minutes on this patient?s care on the day of their visit excluding time spent related to any billed procedures. This time includes time spent with the patient as well as time spent documenting in the medical record, reviewing patients records and tests, obtaining history, placing orders, communicating with other healthcare professionals, counseling the patient, family or caregiver, and/or care coordination for the diagnoses above. Electronically Signed by: Dylan Caldwell MD T: 1:27 AM CC: PCP: Shaila Read Referring: Shaila Read This document was completed utilizing speech recognition software. Grammatical errors, random word insertions, pronoun errors, and incomplete sentences are an occasional consequence of this system due to software limitations, ambient noise, and hardware issues. Any formal questions or concerns about the content, text or information contained within the body of this dictation should be directly addressed to the provider for clarification.
== END 2024-06-11 23:59 | disposition home or self-care (01) ==
LOC: SCTC 15:28
PROVIDERS: PCP Family Medicine; Referring Provider Family Medicine; Visit Provider Internal Medicine Hematology & Oncology
DX: C34.31 Malignant neoplasm of lower lobe, right bronchus or lung (principal); C79.51 Secondary malignant neoplasm of bone; Z92.3 Personal history of irradiation; R21 Rash and other nonspecific skin eruption; R42 Dizziness and giddiness; R00.0 Tachycardia, unspecified
CPT/HCPCS: 80053; 96360; 96413; 99212; J7030; Q3014; G0463

== ENCOUNTER → 2024-06-09 | Outpatient (CLI) | payer BC, SELFPAY ==
[2024-06-09 18:22] LABS: Sed Rate (ESR) 41 mm/hr (0-30)
[2024-06-09 20:17] LABS: RA Screen Negative (Negative)
== END | disposition home or self-care (01) ==
LOC: SCTO 17:02
PROVIDERS: PCP Family Medicine; Referring Provider Internal Medicine Hematology & Oncology; Visit Provider Internal Medicine Hematology & Oncology
DX: C34.31 Malignant neoplasm of lower lobe, right bronchus or lung (principal); C79.51 Secondary malignant neoplasm of bone
CPT/HCPCS: 36415; 85652; 86430

== ENCOUNTER 2024-06-23 14:39 | Outpatient (RCR) | payer BC, SELFPAY ==
--- NOTE | 2024-06-23 14:56 | CTCFLWUP_ITS ---
Patient: CHAD ROMAN : 1970 MR#: [id number] Page 3 of 3 TELEHEALTH AUDIO FOLLOW UP NOTE DATE OF CONSULTATION: 06/23/2024 NAME: CHAD ROMAN ACCOUNT: [id number] : 1970 AGE: 53 REFERRING PHYSICIAN: Shaila Read MD PRIMARY PHYSICIAN: Shaila Read MD INTERVAL HISTORY: Patient is doing well. Rash is better . patient is using herbal product and rash is better . 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 Patient denies any history of cigarette smoking or exposure to secondhand smoking. 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 Ms. Roman is a non-smoker. No history of exposure to secondhand smoking 04/07/2022: Ms. Roman had ultrasound of the soft tissue of the neck to evaluate palpable lump on the left side of theneck. 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 Caltrate-600 Plus Vitamin D3 - 600 mg(1,500mg) -400 unit 1 tab Twice a Day 2. hydrOXYzine HCl - 10 mg 1 tab Daily 3. Lipitor - 10 mg 1 tab Daily 4. omeprazole - 20 mg 1 tab Daily 5. osimertinib - 80 mg 1 tab Daily 6. traMADol - 50 mg 1 tab q6 7. Triamcinolone Acetonide (Top) - 0.025 % As directed Medications Last Reconciled by Ashley Hurtado MD on 06/23/2024 ALLERGIES: No Known Allergies REVIEW OF SYSTEMS: A complete 14-point review of systems was performed and is negative except as noted in interval history. PHYSICAL EXAMINATION: The patient appeared well-nourished, alert, and in no apparent distress via video conferencing. 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 Last PET scan reviewed and shows complete metabolic response patient is non- smoker Consult for adherence to therapy Continue osimertinib 80 mg daily Echo is stable #2 rash likely from Tagrisso Hold Tagrisso and all other supplements Will start on hydroxyzine and prednisone Once rash resolves. Will restart Tagrisso and see if reoccurs #3 dizziness Patient's blood pressure is very low and have tachycardia Patient has not taken any water since morning Encouraged oral hydration Will bring her to get IV fluids .. Advised patient to take balanced diet and not to do extreme dieting to lose weight Labs and fluids tomorrow Even though patient's weight loss may be because of restriction of diet by Ms. Roman it is concerning as patient have stage IV cancer PET scan is scheduled. MRI brain ordered ORDERS: Order # Description [id number] MRI + Brain + With W/O Contrast [id number] MD Follow Up 4 Week [id number] Comprehensive Metabolic Panel - 12 + CBC with Auto Diff [id number] + Comprehensive Metabolic Panel - 12 + CBC with Auto Diff RETURN TO CLINIC: 4 weeks BILLING AND COMPLIANCE: I reviewed external records from providers outside my specialty as summarized above. I spent a total of 50 minutes on this patient?s care on the day of their visit excluding time spent related to any billed procedures. This time includes time spent with the patient as well as time spent documenting in the medical record, reviewing patients records and tests, obtaining history, placing orders, communicating with other healthcare professionals, counseling the patient, family or caregiver, and/or care coordination for the diagnoses above. I performed this evaluation using real-time Telehealth tools. Prior to initiating, the patient consented to perform this evaluation using Telehealth tools. Electronically Signed by: Dylan Caldwell MD T: 2:54 PM CC: PCP: Shaila Read Referring: Shaila Read This document was completed utilizing speech recognition software. Grammatical errors, random word insertions, pronoun errors, and incomplete sentences are an occasional consequence of this system due to software limitations, ambient noise, and hardware issues. Any formal questions or concerns about the content, text or information contained within the body of this dictation should be directly addressed to the provider for clarification.
== END 2024-07-12 23:59 | disposition home or self-care (01) ==
LOC: SCTC 14:39
PROVIDERS: PCP Family Medicine; Referring Provider Family Medicine; Visit Provider Internal Medicine Hematology & Oncology
DX: C34.31 Malignant neoplasm of lower lobe, right bronchus or lung (principal); C79.51 Secondary malignant neoplasm of bone; R21 Rash and other nonspecific skin eruption; Z92.3 Personal history of irradiation; R42 Dizziness and giddiness; R00.0 Tachycardia, unspecified; R63.4 Abnormal weight loss
CPT/HCPCS: 99212; G0463

== ENCOUNTER → 2024-07-17 | Outpatient (CLI) | payer BC, SELFPAY ==
[2024-07-17 08:44] LABS: HCG Qualitative,Urine Negative
== END | disposition home or self-care (01) ==
PROVIDERS: PCP Family Medicine; Referring Provider Internal Medicine Hematology & Oncology; Visit Provider Internal Medicine Hematology & Oncology
DX: Z32.00 Encounter for pregnancy test, result unknown (principal)
CPT/HCPCS: 81025

== ENCOUNTER → 2024-07-21 | Outpatient (CLI) | payer BC, SELFPAY ==
[2024-07-21 11:40] LABS: HCG Qualitative,Urine Negative
--- NOTE | 2024-07-21 13:15 | XR_ITS ---
EXAMINATION: PET/CT FUSION SKULL TO THIGH EXAM DATE AND TIME: July 31, 2024 1249 hours Comparison December 27, 2023, May 29, 2023 INDICATIONS: Diagnosis lung cancer post treatment restaging CTDI:vol (mGy) 3.58 DLP: (mGycm) 282.71 PROCEDURE: 15.43 mCi FDG was administered intravenously To allow for distribution and uptake of radiotracer, the patient was allowed to rest quietly in a shielded room. Imaging was performed on an integrated 16-slice PET/CT scanner, with scanning from the skull base to the mid thigh. Serum blood glucose at the time of the injection was measured 85 mg/dL. CT scanning was performed without oral or intravenous contrast material. FINDINGS: Head and Neck: There is no luca hypermetabolism in the neck. The visualized portions of the brain are normal in appearance on CT. Chest: Stable scarring in the right upper lobe Stable non hypermetabolic 15 mm pulmonary nodule right midlung No new pulmonary nodules Abdomen and Pelvis: There is no luca hypermetabolism in retroperitoneal or pelvic chains. The spleen is normal in size and FDG avidity. Musculoskeletal: Stable osteoblastic metastases T2, bilateral ribs, L3, posterior right iliac bone, left acetabulum IMPRESSION: Stable non hypermetabolic 15 mm pulmonary nodule right midlung Stable osteoblastic metastatic disease
== END | disposition home or self-care (01) ==
PROVIDERS: PCP Family Medicine; Referring Provider Internal Medicine Hematology & Oncology; Visit Provider Internal Medicine Hematology & Oncology
DX: R91.1 Solitary pulmonary nodule (principal); C79.9 Secondary malignant neoplasm of unspecified site; C34.31 Malignant neoplasm of lower lobe, right bronchus or lung; C79.51 Secondary malignant neoplasm of bone; Z32.00 Encounter for pregnancy test, result unknown
CPT/HCPCS: 78815; 81025; A9552

== ENCOUNTER → 2024-07-31 | Outpatient (CLI) | payer BC, SELFPAY ==
[2024-07-30 15:04] LABS: HCG Qualitative,Urine Negative
--- NOTE | 2024-07-31 08:00 | XR_ITS ---
Examination: MRI of brain without intravenous contrast. MRI brain with intravenous contrast. Date and time of exam:July 31, 2024 0818 hours Comparison December 11, 2023 INDICATIONS: Diagnosis malignant neoplasm lower lobe right bronchus or lung, secondary malignant neoplasm bone, patient has headaches 2 weeks blurred vision one year, numbness in the hands one year, dizziness with standing 2 months Technique: Multiple axial and sagittal images of the brain to been obtained. Siemens high-resolution 1.52 Yesika short bore scanner utilized. Sagittal sections, T1 weighted images, TR 500, TE 14, are performed. Axial sections proton-density and T2-weighted images have been obtained. Inversion recovery axial images, TR 9260, TE 111, TR 2500. Diffusion weighted images, axial sections, TR 4800, TE 128, B value 1000. Axial sections, ADC map, TR 4800, TE 128. Axial and coronal images were also obtained post 11 cc gadolinium administered intravenously. Findings:: Enlargement of the sella turcica is not present. The optic chiasm and infundibular stalk are not remarkable. There is no localized enlargement of the medulla or dior. Fourth ventricle and cerebellar tonsils appear normal in position. No subacute area of hemorrhage density is seen. Fourth ventricle is midline. Mass in the cerebellopontine angle region is not evident. 7th and 8th nerve complexes exhibit symmetry Globes are symmetrical Orbital musculature including medial lateral rectus muscles do not exhibit abnormality Increased white matter signal is evident, punctate focus increased signal left frontal white matter FLAIR image 13 left frontal white matter FLAIR image 12 Effacement of the cortical sulcal markings is not identified. Mass effect upon the ventricular system is not identified. Diffusion-weighted images demonstrate no focus of restricted diffusion Contrast images demonstrate no abnormal enhancement Impression: Negative for acute hemorrhage mass effect or midline shift No acute infarct Scattered punctate foci increased signal on the left frontal white matter, demyelinating disease pattern No abnormal enhancing cerebellar or cerebral lesions
== END | disposition home or self-care (01) ==
LOC: SMRI 07:41
PROVIDERS: PCP Family Medicine; Referring Provider Internal Medicine Hematology & Oncology; Visit Provider Internal Medicine Hematology & Oncology
DX: R90.82 White matter disease, unspecified (principal); C34.31 Malignant neoplasm of lower lobe, right bronchus or lung; C79.51 Secondary malignant neoplasm of bone; Z32.00 Encounter for pregnancy test, result unknown
CPT/HCPCS: 70553; 81025; A9579

== ENCOUNTER 2024-09-02 14:25 | Outpatient (RCR) | payer BC, SELFPAY ==
--- NOTE | 2024-09-08 04:57 | CTCFLWUP_ITS ---
Patient: CHAD ROMAN : 1970 Page 3 of 4 FOLLOW UP NOTE DATE OF SERVICE: 09/02/2024 NAME: CHAD ROMAN ACCOUNT: [id number] : 1970 AGE: 53 INTERVAL HISTORY: Patient is doing well. Rash is better . patient is using herbal product and rash is better . Tolerating Tagrisso well ONCOLOGY HISTORY: DIAGNOSIS: Malignant neoplasm of lower lobe, right bronchus or lung [ICD10] C34.31; Secondary malignant neoplasm of bone [ICD10] C79.51 Malignant neoplasm of lower lobe, right bronchus or lung [ICD10] C34.31; Secondary malignant neoplasm of bone [ICD10] C79.51 DATE OF DIAGNOSIS: 05/09/2022 STAGE/TNM: Stage IV with bone lesions lung cancer Right lower lobe CT-guided biopsy showed non-small cell cancer favoring adenocarcinoma EGFR exon 19 deletion TREATMENT HISTORY: Care?Plan Start?Date Cycle Day Intent Xgeva?120?mg?q?monthly?for?3?months,?followed?by?q?3?months 06/20/2022 1 90 Palliative HISTORY OF PRESENT ILLNESS: 53-year-old female ENG speaking female with history of COVID-19 infection in the past has the following oncology history. Patient denies any history of cigarette smoking or exposure to secondhand smoking. 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 Ms. Roman is a non-smoker. No history of exposure to secondhand smoking 04/07/2022: Ms. Roman had ultrasound of the soft tissue of the neck to evaluate palpable lump on the left side of theneck. 07/21/[address] scan shows stable osteoblastic metastatic cysts in T2 bilateral rib L3 posterior right iliac bone left acetabulum and stable non-hypermetabolic 15 mm pulmonary nodule right midlung PET CT scan on 06/09/2022 showed widespread osteo blastic disease including posterior left acetabulum spinous processWidespread osscous metastatic disease. multiple hypennetabolie osseous lesions including posterior le? acetabulum. posterior spinous process Ll right third. ?fth. seventh ribs. 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 RESIDENTIAL LEASING AGENT HISTORY: Menarche?-?Age:?14 Date?LMP:?03/29/2022 :?5 Live?Births:?4 Age?1st?:?20 Gynecological?Note:?1?miscarriage MEDICATIONS: 1. Caltrate-600 Plus Vitamin D3 - 600 mg(1,500mg) -400 unit 1 tab Twice a Day 2. gabapentin - 100 mg 3 Capsule twice daily 3. hydrOXYzine HCl - 10 mg 1 tab Daily 4. Lipitor - 10 mg 1 tab Daily 5. omeprazole - 20 mg 1 tab Daily 6. osimertinib - 80 mg 1 tab Daily 7. traMADol - 50 mg 1 tab q6 8. Triamcinolone Acetonide (Top) - 0.025 % As directed Medications Last Reconciled by Ashley Hurtado MD on 09/02/2024 ALLERGIES: No Known Allergies REVIEW OF SYSTEMS: A complete 14-point review of systems was performed and is negative except as noted in interval history. PHYSICAL EXAMINATION: VITAL SIGNS: Temperature?98.3, B/P?94/58, Oxygen?Saturation?100% Weight?126?lbs PAIN: 0 - No pain ECOG Performance Status: 0 - Asymptomatic and fully active The patient appeared well-nourished, alert, and in no apparent distress via video conferencing. LABORATORY DATA: I have personally reviewed and interpreted each of the patient?s relevant lab tests, abnormal findings are below: Date 05/15/24 05/21/24 06/06/24 ??WHITE?BLOOD?COUNT?(Thou/mm3) ? ? 5.4 ??RED?BLOOD?COUNT?(Miln/mm3) ? ? 3.60?L ??HEMOGLOBIN?(gm/dl) ? ? 11.1?L ??HEMATOCRIT?(%) ? ? 32.5?L ??PLATELET?COUNT?(Thou/mm3) ? ? 241 ??NEUTROPHILS?%,?AUTO?(%) ? ? 52 ??LYMPH?%,?AUTO?(%) ? ? 33 ??NEUTROPHILS,?AUTO?(Thou/mm3) ? ? 2.8 ??GLUCOSE,RANDOM?(mg/dL) 97 108?H 94 ??BLOOD?UREA?NITROGEN?(mg/dL) 13 11 12 ??CREATININE?(mg/dL) 1.00 1.00 1.00 ??SODIUM?(mmol/L) 137 136 142 ??POTASSIUM?(mmol/L) 4.4 3.5 3.9 ??CHLORIDE?(mmol/L) 102 103 105 ??CrCl?(CandG)?(ml/min) 62.43 59.29 59.29 ??AST/SGOT?(Unit/L) 58?H 29 23 ??ALT/SGPT?(Unit/L) 51?H 22 14 ??ALKALINE?PHOSPHATASE?(Unit/L) 107 85 64 ??BILIRUBIN,?TOTAL?(mg/dL) 0.8 0.5 0.8 ??PROTEIN?TOTAL?(gm/dl) 7.8 7.3 7.2 ??ALBUMIN,?SERUM?(gm/dl) 4.9 4.5 4.6 ??GLOBULIN?(gm/dl) 2.9 2.8 2.6 ??ALBUMIN/GLOBULIN?RATIO 1.7 1.6 1.8 ??CALCIUM,?SERUM?(mg/dL) 9.7 9.1 9.6 ??CALCIUM?SERUM?(CORRECTED)?(mg/dL) 9.7 9.1 9.6 ASSESSMENT/PLAN: #1 stage IV metastatic adenocarcinoma of the lung 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 08/01/[address] scan and MRI brain reviewed PET scan reviewed and shows complete metabolic response Brain MRI negative patient is non-smoker Consult for adherence to therapy Continue osimertinib 80 mg daily Echo is stable #2 rash resolved Doing well on Tagrisso will continue current therapy Continue testing by [facility] RETURN TO CLINIC: I reviewed the diagnosis, prognosis, and recommended treatment/procedure options with the patient (and/or their legal operations support representative), including the potential benefits, risks, side effects and alternative therapies. We also discussed the option of no treatment and the possibility of clinical trial participation, if applicable. All questions were addressed, and they demonstrated understanding. They provided informed consent to proceed with the proposed plan of care. BILLING AND COMPLIANCE: I reviewed external records from providers outside my specialty as summarized above. I spent a total of 50 minutes on this patient?s care on the day of their visit excluding time spent related to any billed procedures. This time includes time spent with the patient as well as time spent documenting in the medical record, reviewing patients records and tests, obtaining history, placing orders, communicating with other healthcare professionals, counseling the patient, family or caregiver, and/or care coordination for the diagnoses above. Electronically Signed by: Dylan Caldwell MD T: 4:54 AM CC: PCP: Shaila Read Referring: Shaila Read This document was completed utilizing speech recognition software. Grammatical errors, random word insertions, pronoun errors, and incomplete sentences are an occasional consequence of this system due to software limitations, ambient noise, and hardware issues. Any formal questions or concerns about the content, text or information contained within the body of this dictation should be directly addressed to the provider for clarification.
== END 2024-09-11 23:59 | disposition home or self-care (01) ==
LOC: SCTC 14:25
PROVIDERS: PCP Family Medicine; Referring Provider Family Medicine; Visit Provider Internal Medicine Hematology & Oncology
DX: C34.31 Malignant neoplasm of lower lobe, right bronchus or lung (principal); C79.51 Secondary malignant neoplasm of bone; Z92.3 Personal history of irradiation; Z92.21 Personal history of antineoplastic chemotherapy
CPT/HCPCS: 99212; G0463

== ENCOUNTER → 2024-09-22 | Outpatient (CLI) | payer BC, SELFPAY ==
--- NOTE | 2024-09-22 | XR_ITS ---
Examination: Foot, left, 3 views Technique: AP, oblique, lateral views foot, 3 views Date and time of exam: September 22, 2024 12:40 PM INDICATIONS: Left foot pain beginning 5 days ago FINDINGS: Mild to moderate bunion deformity Mild narrowing first metatarsophalangeal joint No fracture 2 mm plantar bony calcaneal spur Impression: Mild to moderate bunion deformity Early osteoarthritis first metatarsophalangeal joint
--- NOTE | 2024-09-22 | XR_ITS ---
Examination: Tibia-Fibula, left , 2 views Technique: Tibia-fibula AP lateral 2 views Date and time of exam: September 22, 2024 12:40 PM INDICATIONS: Left lower leg swelling and pain beginning 5 days ago no trauma. FINDINGS: Moderate osteopenia. No fracture or dislocation. No cortical bone destruction. No foreign body IMPRESSION: No cortical bone destruction or foreign body
--- NOTE | 2024-09-22 12:05 | XR_ITS ---
Examination: Duplex scan of the lower extremity, unilateral left Date and time of exam: September 22, 2024 1212 hours INDICATIONS: Left leg pain beginning 5 days ago Technique: Duplex scan of the extremity veins using B-mode/grayscale imaging and Doppler spectral analysis and color flow Attention is directed to internal echogenicity, compression and augmentation involving these veins, color flow assessment, spectral analysis Findings: Major deep venous structures in the extremity demonstrate normal course and caliber. There is no evidence of deep vein thrombosis. Normal color flow and spectral analysis Impression: Negative for DVT..
== END | disposition home or self-care (01) ==
PROVIDERS: PCP Student in an Organized Health Care Education/Training Program; Referring Provider Student in an Organized Health Care Education/Training Program; Visit Provider Student in an Organized Health Care Education/Training Program
DX: M79.605 Pain in left leg (principal); M21.612 Bunion of left foot; M19.072 Primary osteoarthritis, left ankle and foot; M79.89 Other specified soft tissue disorders
CPT/HCPCS: 73590; 73630; 93971

== ENCOUNTER → 2024-09-28 | Outpatient (CLI) | payer BC, SELFPAY ==
--- NOTE | 2024-09-28 15:00 | ECHO_ITS ---
Transthoracic Echo Report Ht (in): 59 Wt (lb): 130 Exam Location: Echo Lab Status: [facility] [employer] Chair: Nel Mcneal Indications: Procedure Performed: BP: / HR: Technical Quality: Technically difficult study MEASUREMENTS (Male / Female) Normal Values 2D ECHO LV Diastolic Diameter PLAX 3.7 cm 4.2 - 5.9 / 3.9 - 5.3 cm LV Systolic Diameter PLAX 2.3 cm IVS Diastolic Thickness 0.6 cm 0.6 - 1.0 / 0.6 - 0.9 cm LVPW Diastolic Thickness 1.0 cm 0.6 - 1.0 / 0.6 - 0.9 cm LV Relative Wall Thickness 0.4 LVOT Diameter 1.5 cm Aortic Root Diameter 2.3 cm LV Ejection Fraction MOD BP 52.5 % >= 55 % LV Ejection Fraction MOD 4C 57.2 % LV Ejection Fraction 4C AL 60.8 % LV Ejection Fraction MOD 2C 41.6 % LV Ejection Fraction 2C AL 43.5 % LA Volume Index 15.8 cm?/m? 16 - 28 cm?/m? Ascending Aorta Diameter 1.8 cm M-MODE Aortic Root Diameter MM 1.9 cm LA Systolic Diameter MM 3.0 cm LA Ao Ratio MM 1.6 AV Cusp Separation MM 1.2 cm DOPPLER AV Peak Velocity 165.0 cm/s AV Peak Gradient 10.9 mmHg AV Mean Gradient 5.0 mmHg AV Velocity Time Integral 39.0 cm LVOT Peak Velocity 107.0 cm/s LVOT Peak Gradient 4.6 mmHg LVOT Velocity Time Integral 24.7 cm AV Area Cont Eq vti 1.1 cm? AV Area Cont Eq pk 1.1 cm? MV Area PHT 3.9 cm? MR Peak Velocity 301.0 cm/s MR Peak Gradient 36.2 mmHg Mitral E Point Velocity 75.2 cm/s Mitral A Point Velocity 58.2 cm/s Mitral E to A Ratio 1.3 LV E' Lateral Velocity 18.6 cm/s Mitral E to LV E' Lateral Ratio 4.0 LV E' Septal Velocity 13.6 cm/s Mitral E to LV E' Septal Ratio 5.5 PV Peak Velocity 118.0 cm/s PV Peak Gradient 5.6 mmHg FINDINGS Left Ventricle Normal left ventricular size, wall thickness, systolic function with no obvious regional wall motion abnormalities. Normal left ventricular diastolic filling pattern for age. The ejection fraction is visually estimated at 65 %. Right Ventricle The right ventricle is normal in size and systolic function. Left Atrium The left atrium is normal by two-dimensional, color flow and Doppler imaging with no structural abnormalities, no thrombus formation present. Right Atrium The right atrium is normal by two-dimensional imaging, color flow and Doppler imaging with no structural abnormalities, no thrombus formation present. Atrial Septum The interatrial septum appears normal with no evidence of a shunt. Aorta The aorta is normal by two-dimensional, color flow and Doppler interrogation. Mitral Valve The mitral valve is normal by two-dimensional, color flow and Doppler interrogation. Mild mitral regurgitation. Aortic Valve The aortic valve is trileaflet and normal by two-dimensional, color flow and Doppler interrogation. There is no significant aortic valve regurgitation. Tricuspid Valve The tricuspid valve is normal by two-dimensional, color flow and Doppler interrogation. There is no significant tricuspid valve regurgitation. Pulmonic Valve The pulmonic valve is not well visualized. There is no significant pulmonic valve regurgitation. Vessels The pulmonary artery appears normal. The inferior vena cava pulmonary and hepatic veins appear normal. Pericardium The pericardium is normal by two-dimensional imaging. There is no significant pericardial effusion. CONCLUSIONS Indication: Malignant neoplam of lower lobe, right bronchus or lung The transthoracic study is normal by two-dimensional, color flow imaging and Doppler interrogation. Normal left ventricular size and function. Approximate ejection fraction is 65%. Trace mitral and trace tricuspid regurgitation No wall motion abnormalities Alona Corley (Electronically Signed) Final Date: 28 September 2024 17:42
== END | disposition home or self-care (01) ==
LOC: SDIM 10-06 13:33
PROVIDERS: PCP Family Medicine; Referring Provider Internal Medicine Hematology & Oncology; Visit Provider Internal Medicine Hematology & Oncology
DX: I08.1 Rheumatic disorders of both mitral and tricuspid valves (principal); C34.31 Malignant neoplasm of lower lobe, right bronchus or lung; C79.51 Secondary malignant neoplasm of bone
CPT/HCPCS: 93306

== ENCOUNTER → 2024-10-09 | Outpatient (CLI) | payer BC, SELFPAY ==
--- NOTE | 2024-10-09 14:45 | XR_ITS ---
Examination: Breast ultrasound, unilateral, left complete Date and time of exam: October 09, 2024 1451 hours INDICATIONS: Palpable lump in the left axillary region one month, family history breast cancer Technique: Real-time gtz scale ultrasonographic imaging performed left breast including all 4 quadrants as well as nipple retroareolar and axillary region. Findings: No cystic or solid mass IMPRESSION: BI-RADS Category 0: Incomplete: Need additional imaging evaluation Given the presentation of the patient recommend diagnostic mammography follow-up
--- NOTE | 2024-10-09 15:15 | XR_ITS ---
Examination: Diagnostic digital mammography, bilateral Computer aided detection 3-D breast Tomosynthesis, bilateral Date and time of exam: 10/09/2024, 3 3:00 PM Comparisons: October 2020, November 2022 Indications:Left axillary lump Technique: Nonmagnified MLO, CC views of the breasts to been obtained, reconstructed from 3-D Tomosynthesis images. R2 computer aided detection program utilized for evaluation of suspicious masses and/or abnormal calcifications. 3-D Tomosynthesis images obtained. Findings: There are scattered areas of fibroglandular density. Bilateral subpectoral silicone implants appear intact. No evidence of abnormal masses or suspicious calcifications. Impression: BI-RADS category 2: Benign findings Recommend 1 year follow-up mammogram
== END | disposition home or self-care (01) ==
PROVIDERS: PCP Family Medicine; Referring Provider Internal Medicine Hematology & Oncology; Visit Provider Internal Medicine Hematology & Oncology
DX: R92.323 Mammographic fibroglandular density, bilateral breasts (principal); R92.8 Other abnormal and inconclusive findings on diagnostic imaging of breast; C34.31 Malignant neoplasm of lower lobe, right bronchus or lung; C79.51 Secondary malignant neoplasm of bone
CPT/HCPCS: 76641; 77062; 77066; G0279

== ENCOUNTER → 2024-10-17 | Outpatient (CLI) | payer BC, SELFPAY ==
[2024-10-17 11:26] LABS: Basophils # (Auto) 0.0 Thou/mm3 (0.0-0.2); Basophils % (Auto) 1 % (0-2.5); Eosinophils # (Auto) 0.9 Thou/mm3 (0.0-0.5); Eosinophils % (Auto) 17 % (0-10); Hematocrit 26.8 % (36.0-46.0); Hemoglobin 9.0 g/dL (12.0-16.0); Immature Granulocytes Auto 0.01 Thou/mm3 (0.00-0.00); Lymphocytes # (Auto) 1.8 Thou/mm3 (1.0-4.8); Lymphocytes % (Auto) 36 % (10-50); Mean Corpuscular HGB Conc 33.6 g/dl (31.0-37.0); Mean Corpuscular Hemoglobin 31.3 pg (25.0-35.0); Mean Corpuscular Volume 93 fL (80-100); Monocytes # (Auto) 0.4 Thou/mm3 (0.0-0.8); Monocytes % (Auto) 8 % (0-12); Neutrophils # (Auto) 1.9 Thou/mm3 (1.8-7.7); Neutrophils % (Auto) 38 % (37-80); Nucleated Red Blood Cell # 0.00 Thou/mm3 (0.00-0.00); Nucleated Red Blood Cell % 0 /100 WBC (0); Platelet Count 251 Thou/mm3 (140-440); RDW Standard Deviation 50.8 fL (36.4-46.3); Red Blood Count 2.88 Miln/mm3 (4.00-5.20); White Blood Count 5.1 Thou/mm3 (3.6-11.0)
[2024-10-17 11:54] LABS: Alanine Aminotransferase 12 U/L (10-49); Albumin, Serum 3.9 gm/dL (3.5-5.0); Albumin/Globulin Ratio 2.1 (1.2-2.2); Alkaline Phosphatase 80 U/L (46-116); Anion Gap 11 (7-16); Aspartate Amino Transferase 19 U/L (0-34); BUN/Creatinine Ratio 12 Ratio (12-20); Bilirubin,Total 0.4 mg/dL (0.3-1.2); Blood Urea Nitrogen 14 mg/dL (9-23); Calcium 9.6 mg/dL (8.3-10.6); Calcium (Corrected) 9.7 mg/dL (8.5-10.1); Carbon Dioxide 24.6 mMol/L (20.0-31.0); Chloride 107 mMol/L (98-107); Creatinine (Component) 1.2 mg/dL (0.6-1.3); Globulin 1.9 gm/dL (2.3-3.5); Glucose 86 mg/dL (74-106); Osmolality,Calculated 284 (275-295); Potassium 4.0 mMol/L (3.4-5.1); Sodium 143 mMol/L (136-145); Total Protein 5.8 gm/dL (5.7-8.2); eGFR 55 See Note
== END | disposition home or self-care (01) ==
LOC: SCTO 10:53
PROVIDERS: PCP Family Medicine; Referring Provider Internal Medicine Hematology & Oncology; Visit Provider Internal Medicine Hematology & Oncology
DX: C34.31 Malignant neoplasm of lower lobe, right bronchus or lung (principal); C79.51 Secondary malignant neoplasm of bone
CPT/HCPCS: 36415; 80053; 85025

== ENCOUNTER 2024-10-21 13:30 | Outpatient (RCR) | payer BC, SELFPAY ==
--- NOTE | 2024-10-21 15:37 | CTCFLWUP_ITS ---
Patient: CHAD ROMAN : 1970 Page 3 of 5 FOLLOW UP NOTE DATE OF SERVICE: 10/21/2024 NAME: CHAD ROMAN ACCOUNT: [id number] : 1970 AGE: 53 INTERVAL HISTORY: Patient is doing well.. Tolerating Tagrisso well. Neuropathic pain is better with the gabapentin. ONCOLOGY HISTORY: DIAGNOSIS: Malignant neoplasm of lower lobe, right bronchus or lung [ICD10] C34.31; Secondary malignant neoplasm of bone [ICD10] C79.51 Malignant neoplasm of lower lobe, right bronchus or lung [ICD10] C34.31; Secondary malignant neoplasm of bone [ICD10] C79.51 DATE OF DIAGNOSIS: 05/09/2022 STAGE/TNM: Stage IV with bone lesions lung cancer Right lower lobe CT-guided biopsy showed non-small cell cancer favoring adenocarcinoma EGFR exon 19 deletion TREATMENT HISTORY: Care?Plan Start?Date Cycle Day Intent Xgeva?120?mg?q?monthly?for?3?months,?followed?by?q?3?months 06/20/2022 1 90 Palliative HISTORY OF PRESENT ILLNESS: 53-year-old female ENG speaking female with history of COVID-19 infection in the past has the following oncology history. Patient denies any history of cigarette smoking or exposure to secondhand smoking. 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 Ms. Roman is a non-smoker. No history of exposure to secondhand smoking 04/07/2022: Ms. Roman had ultrasound of the soft tissue of the neck to evaluate palpable lump on the left side of theneck. 07/21/[address] scan shows stable osteoblastic metastatic cysts in T2 bilateral rib L3 posterior right iliac bone left acetabulum and stable non-hypermetabolic 15 mm pulmonary nodule right midlung PET CT scan on 06/09/2022 showed widespread osteo blastic disease including posterior left acetabulum spinous processWidespread osscous metastatic disease. multiple hypennetabolie osseous lesions including posterior le? acetabulum. posterior spinous process Ll right third. ?fth. seventh ribs. 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 PLASTICS SCIENTIST HISTORY: Menarche?-?Age:?14 Date?LMP:?03/29/2022 :?5 Live?Births:?4 Age?1st?:?20 Gynecological?Note:?1?miscarriage MEDICATIONS: 1. Caltrate-600 Plus Vitamin D3 - 600 mg(1,500mg) -400 unit 1 tab Twice a Day 2. gabapentin - 100 mg 3 Capsule twice daily 3. gabapentin - 300 mg 1 Capsule 1 cap 3 times daily 4. Lipitor - 10 mg 1 tab Daily 5. osimertinib - 80 mg 1 tab Daily 6. Triamcinolone Acetonide (Top) - 0.025 % As directed Medications Last Reconciled by Annmarie Gramajo RN on 10/21/2024 ALLERGIES: No Known Allergies REVIEW OF SYSTEMS: A complete 14-point review of systems was performed and is negative except as noted in interval history. PHYSICAL EXAMINATION: VITAL SIGNS: Temperature?98.9, B/P?101/65, Oxygen?Saturation?99% Weight?133?lbs PAIN: 4 - Moderate pain ECOG Performance Status: 0 - Asymptomatic and fully active The patient appeared well-nourished, alert, and in no apparent distress via video conferencing. LABORATORY DATA: I have personally reviewed and interpreted each of the patient?s relevant lab tests, abnormal findings are below: Date 06/06/24 10/17/24 ??WHITE?BLOOD?COUNT?(Thou/mm3) 5.4 5.1 ??RED?BLOOD?COUNT?(Miln/mm3) 3.60?L 2.88?L ??HEMOGLOBIN?(gm/dl) 11.1?L 9.0?L ??HEMATOCRIT?(%) 32.5?L 26.8?L ??PLATELET?COUNT?(Thou/mm3) 241 251 ??NEUTROPHILS?%,?AUTO?(%) 52 38 ??LYMPH?%,?AUTO?(%) 33 36 ??NEUTROPHILS,?AUTO?(Thou/mm3) 2.8 1.9 ??GLUCOSE,RANDOM?(mg/dL) 94 86 ??BLOOD?UREA?NITROGEN?(mg/dL) 12 14 ??CREATININE?(mg/dL) 1.00 1.20 ??SODIUM?(mmol/L) 142 143 ??POTASSIUM?(mmol/L) 3.9 4.0 ??CHLORIDE?(mmol/L) 105 107 ??CrCl?(CandG)?(ml/min) 59.29 50.04 ??AST/SGOT?(Unit/L) 23 19 ??ALT/SGPT?(Unit/L) 14 12 ??ALKALINE?PHOSPHATASE?(Unit/L) 64 80 ??BILIRUBIN,?TOTAL?(mg/dL) 0.8 0.4 ??PROTEIN?TOTAL?(gm/dl) 7.2 5.8 ??ALBUMIN,?SERUM?(gm/dl) 4.6 3.9 ??GLOBULIN?(gm/dl) 2.6 1.9?L ??ALBUMIN/GLOBULIN?RATIO 1.8 2.1 ??CALCIUM,?SERUM?(mg/dL) 9.6 9.6 ??CALCIUM?SERUM?(CORRECTED)?(mg/dL) 9.6 9.7 ASSESSMENT/PLAN: #1 stage IV metastatic adenocarcinoma of the lung 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 08/01/[address] scan and MRI brain reviewed PET scan reviewed and shows complete metabolic response Brain MRI negative patient is non-smoker Consult for adherence to therapy Continue osimertinib 80 mg daily Echo is stable #2 rash resolved Doing well on Tagrisso will continue current therapy Continue testing by [facility] Testing ordered for January [facility] in January ORDERS: Order # Description [id number] Comprehensive Metabolic Panel - 12 + CBC with Auto Diff [id number] Iron Panel + Ferritin + Vitamin B-12 + Folic Acid; Serum + Lactate Dehydrogenase (LDH) + Assay Of Haptoglobin Quant + Reticulocyte Count [id number] MD Follow Up 3 Months [id number] MD Follow Up 4 Week [id number] MRI + Brain + With Contrast [id number] PET/CT of Skull to mid-thigh for Restaging RETURN TO CLINIC: I reviewed the diagnosis, prognosis, and recommended treatment/procedure options with the patient (and/or their legal apprenticeship training representative), including the potential benefits, risks, side effects and alternative therapies. We also discussed the option of no treatment and the possibility of clinical trial participation, if applicable. All questions were addressed, and they demonstrated understanding. They provided informed consent to proceed with the proposed plan of care. BILLING AND COMPLIANCE: I reviewed external records from providers outside my specialty as summarized above. I spent a total of 50 minutes on this patient?s care on the day of their visit excluding time spent related to any billed procedures. This time includes time spent with the patient as well as time spent documenting in the medical record, reviewing patients records and tests, obtaining history, placing orders, communicating with other healthcare professionals, counseling the patient, family or caregiver, and/or care coordination for the diagnoses above. Electronically Signed by: Dylan Caldwell MD T: 3:35 PM CC: PCP: Shaila Read Referring: Shaila Read This document was completed utilizing speech recognition software. Grammatical errors, random word insertions, pronoun errors, and incomplete sentences are an occasional consequence of this system due to software limitations, ambient noise, and hardware issues. Any formal questions or concerns about the content, text or information contained within the body of this dictation should be directly addressed to the provider for clarification.
== END 2024-11-11 23:59 | disposition home or self-care (01) ==
LOC: SCTC 13:30
PROVIDERS: PCP Family Medicine; Referring Provider Family Medicine; Visit Provider Internal Medicine Hematology & Oncology
DX: C34.31 Malignant neoplasm of lower lobe, right bronchus or lung (principal); C79.51 Secondary malignant neoplasm of bone; Z92.3 Personal history of irradiation
CPT/HCPCS: 99212; G0463

== ENCOUNTER → 2024-10-28 | Outpatient (CLI) | payer BC, SELFPAY ==
[2024-10-28 13:09] LABS: Immature Reticulocyte Fraction 4.5 % (3.0-15.9); Reticulocyte % (Auto) 1.3 % (0.5-1.5); Reticulocyte Absolute Auto 40.3 Biln/L (25.0-75.0); Reticulocyte Hgb Content 35.3 pg (28.0-35.0)
[2024-10-28 13:22] LABS: LDH (Lactate Dehydrogenase) 202 U/L (120-246)
[2024-10-28 13:29] LABS: Folate 20.08 ng/mL (>5.38); Vitamin B12 516 pg/mL (211-911)
[2024-10-28 13:39] LABS: Ferritin 37 ng/mL (7.3-270.7); Iron 98 mcg/dL (50-170); Percent Iron Saturation 31 % (20-55); Total Iron Binding Capacity 316 mcg/dL (250-425); Unsaturated Iron Binding 218 (225-295)
[2024-11-07 06:32] LABS: Haptoglobin* 257 mg/dL (43-212)
== END | disposition home or self-care (01) ==
LOC: SCTO 11:49
PROVIDERS: PCP Family Medicine; Referring Provider Internal Medicine Hematology & Oncology; Visit Provider Internal Medicine Hematology & Oncology
DX: C34.31 Malignant neoplasm of lower lobe, right bronchus or lung (principal); C79.51 Secondary malignant neoplasm of bone
CPT/HCPCS: 36415; 82607; 82728; 82746; 83010; 83540; 83550; 83615; 85046

== ENCOUNTER → 2024-11-20 | Outpatient (CLI) | payer BC, SELFPAY ==
--- NOTE | 2024-11-20 13:20 | XR_ITS ---
Examination: Bone densitometry Date and time of exam: November 20, 2024, 1342 hours INDICATIONS: Menopause age 52, lung carcinoma diagnosis, vitamin D and calcium 2 years Technique: Lumbar spine and hip total bone mineralization values of an calculated. Peak reference and age match control results have been displayed. Findings: Lumbar spine total bone mineralization is 1.106 gm/cm2. This is 0.5 standard deviations above peak reference. This is 1.4 standard deviations above age-matched controls. Hip total bone mineralization is 0.941 gm/cm2 This is 0.0 standard deviations at peak reference. This is 0.5 standard deviations above age-matched controls Impression: There is normal mineralization based on lumbar spine measurements. There is normal mineralization based on hip measurements
[2024-11-20 13:59] LABS: Misc Send Out* See Sep Rpt
[2024-11-20 14:55] LABS: Creatinine,Random Urine 174 mg/dL (30-125); Protein Total, Random Urine 15 mg/dL (1-14)
[2024-11-20 14:59] LABS: C-Reactive Protein < 0.5 mg/dL (0.0-0.9)
[2024-11-25 11:19] LABS: Sjogren's antibody (SS-A) <1.0 NEG AI (<1.0 NEGATIVE); Sm Antibody <1.0 NEG AI (<1.0 NEGATIVE)
[2024-11-26 06:32] LABS: Complement Component C3* 155 mg/dL (83-193); Complement Component C4c* 30 mg/dL (15-57); Sjogren's Antibody (SS-B) <1.0 NEG AI (<1.0 NEGATIVE); Sm/RNP Antibody <1.0 NEG AI (<1.0 NEGATIVE)
== END | disposition home or self-care (01) ==
LOC: CDIM 13:13 → COPL 13:42
PROVIDERS: PCP Family Medicine; Referring Provider Nurse Practitioner Family; Visit Provider Internal Medicine Hematology & Oncology
DX: C34.31 Malignant neoplasm of lower lobe, right bronchus or lung (principal); C79.51 Secondary malignant neoplasm of bone; R76.89 Other specified abnormal immunological findings in serum
CPT/HCPCS: 36415; 77080; 82570; 84156; 86140; 86160; 86235

== ENCOUNTER 2024-12-02 14:37 | Outpatient (RCR) | payer BC, SELFPAY ==
--- NOTE | 2024-12-03 13:36 | CTCFLWUP_ITS ---
Patient: CHAD ROMAN : 1970 Page 3 of 4 FOLLOW UP NOTE DATE OF SERVICE: 12/02/2024 NAME: CHAD ROMAN ACCOUNT: [id number] : 1970 AGE: 54 INTERVAL HISTORY: Patient is doing well.. Tolerating Tagrisso well. Neuropathic pain is better with the gabapentin. New referrals were given to Ms. Roman as per her request. Last scan was in 6 months ago. New PET CT scan was ordered to evaluate any cancer recurrence. ONCOLOGY HISTORY: DIAGNOSIS: Malignant neoplasm of lower lobe, right bronchus or lung [ICD10] C34.31; Secondary malignant neoplasm of bone [ICD10] C79.51 Malignant neoplasm of lower lobe, right bronchus or lung [ICD10] C34.31; Secondary malignant neoplasm of bone [ICD10] C79.51 DATE OF DIAGNOSIS: 05/09/2022 STAGE/TNM: Stage IV with bone lesions lung cancer Right lower lobe CT-guided biopsy showed non-small cell cancer favoring adenocarcinoma EGFR exon 19 deletion TREATMENT HISTORY: Care?Plan Start?Date Cycle Day Intent Xgeva?120?mg?q?monthly?for?3?months,?followed?by?q?3?months 06/20/2022 1 90 Palliative HISTORY OF PRESENT ILLNESS: 54-year-old female ENG speaking female with history of COVID-19 infection in the past has the following oncology history. Patient denies any history of cigarette smoking or exposure to secondhand smoking. 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 Ms. Roman is a non-smoker. No history of exposure to secondhand smoking 04/07/2022: Ms. Roman had ultrasound of the soft tissue of the neck to evaluate palpable lump on the left side of theneck. 07/21/[address] scan shows stable osteoblastic metastatic cysts in T2 bilateral rib L3 posterior right iliac bone left acetabulum and stable non-hypermetabolic 15 mm pulmonary nodule right midlung PET CT scan on 06/09/2022 showed widespread osteo blastic disease including posterior left acetabulum spinous processWidespread osscous metastatic disease. multiple hypennetabolie osseous lesions including posterior le? acetabulum. posterior spinous process Ll right third. ?fth. seventh ribs. 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 INTERNAL COMMUNICATIONS INTERN HISTORY: Menarche?-?Age:?14 Date?LMP:?03/29/2022 :?5 Live?Births:?4 Age?1st?:?20 Gynecological?Note:?1?miscarriage MEDICATIONS: 1. Caltrate-600 Plus Vitamin D3 - 600 mg(1,500mg) -400 unit 1 tab Twice a Day 2. gabapentin - 100 mg 3 Capsule twice daily 3. gabapentin - 300 mg 1 Capsule twice daily 4. Lipitor - 10 mg 1 tab Daily 5. osimertinib - 80 mg 1 tab Daily 6. Tagrisso - 80 mg 1 tab Daily 7. Triamcinolone Acetonide (Top) - 0.025 % As directed Medications Last Reconciled by Ashley Hurtado MD on 12/02/2024 ALLERGIES: No Known Allergies REVIEW OF SYSTEMS: A complete 14-point review of systems was performed and is negative except as noted in interval history. PHYSICAL EXAMINATION: VITAL SIGNS: Temperature?98.4, B/P?106/67, Oxygen?Saturation?99% Weight?130?lbs PAIN: 2 - Mild pain ECOG Performance Status: 0 - Asymptomatic and fully active The patient appeared well-nourished, alert, and in no apparent distress via video conferencing. LABORATORY DATA: I have personally reviewed and interpreted each of the patient?s relevant lab tests, abnormal findings are below: Date 10/17/24 10/28/24 ??WHITE?BLOOD?COUNT?(Thou/mm3) 5.1 ? ??RED?BLOOD?COUNT?(Miln/mm3) 2.88?L ? ??HEMOGLOBIN?(gm/dl) 9.0?L ? ??HEMATOCRIT?(%) 26.8?L ? ??PLATELET?COUNT?(Thou/mm3) 251 ? ??NEUTROPHILS?%,?AUTO?(%) 38 ? ??LYMPH?%,?AUTO?(%) 36 ? ??NEUTROPHILS,?AUTO?(Thou/mm3) 1.9 ? ??LDH,?TOTAL?(Unit/L) ? 202 ??RETICULOCYTE?ABSOLUTE?AUTO?(Biln/L) ? 40.3 ??TOTAL?IRON?BINDING?CAP?(S*)?(mcg/dL) ? 316 ??UNBOUND?IBC?(mcg/dL) ? 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 08/01/[address] scan and MRI brain reviewed PET scan reviewed and shows complete metabolic response Brain MRI negative Will order new PET CT scan and brain MRI to be completed in January before next appointment patient is non-smoker Consult for adherence to therapy Continue osimertinib 80 mg daily Echo is stable #2 rash resolved Doing well on Tagrisso will continue current therapy Continue testing by [facility] Testing ordered for Raheel [facility] in January ORDERS: Order # Description [id number] MRI + Brain + With Contrast [id number] PET/CT of Skull to mid-thigh for Restaging RETURN TO CLINIC: I reviewed the diagnosis, prognosis, and recommended treatment/procedure options with the patient (and/or their legal quality control representative), including the potential benefits, risks, side effects and alternative therapies. We also discussed the option of no treatment and the possibility of clinical trial participation, if applicable. All questions were addressed, and they demonstrated understanding. They provided informed consent to proceed with the proposed plan of care. BILLING AND COMPLIANCE: I reviewed external records from providers outside my specialty as summarized above. I spent a total of 50 minutes on this patient?s care on the day of their visit excluding time spent related to any billed procedures. This time includes time spent with the patient as well as time spent documenting in the medical record, reviewing patients records and tests, obtaining history, placing orders, communicating with other healthcare professionals, counseling the patient, family or caregiver, and/or care coordination for the diagnoses above. Electronically Signed by: Dylan Caldwell MD T: 1:34 PM CC: PCP: Otoniel Vega Referring: Otoniel Vega This document was completed utilizing speech recognition software. Grammatical errors, random word insertions, pronoun errors, and incomplete sentences are an occasional consequence of this system due to software limitations, ambient noise, and hardware issues. Any formal questions or concerns about the content, text or information contained within the body of this dictation should be directly addressed to the provider for clarification.
== END 2024-12-12 23:59 | disposition home or self-care (01) ==
LOC: SCTC 14:37
PROVIDERS: PCP Student in an Organized Health Care Education/Training Program; Referring Provider Student in an Organized Health Care Education/Training Program; Visit Provider Internal Medicine Hematology & Oncology
DX: C34.31 Malignant neoplasm of lower lobe, right bronchus or lung (principal); C79.51 Secondary malignant neoplasm of bone; Z92.3 Personal history of irradiation
CPT/HCPCS: 99212; G0463

== ENCOUNTER 2024-12-03 18:36 | Emergency (ER) | payer BC, SELFPAY ==
[2024-12-03 19:27] VITALS: BP 104/68; PULSE 87; RESP 18; TEMP 36.8; O2SAT 100; BMI 26.6
--- NOTE | 2024-12-03 19:32 | XR_ITS ---
Examination: Duplex scan of the upper extremity, unilateral left Date and time of exam: December 03 2024, 1950 hours INDICATIONS: Lung cancer diagnosis 2022, left arm swelling and pain beginning 3 days ago Technique: Duplex scan of the extremity veins using B-mode/grayscale imaging and Doppler spectral analysis and color flow Attention is directed to internal echogenicity, compression and augmentation involving these veins, color flow assessment, spectral analysis Findings: Major deep venous structures in the extremity demonstrate normal course and caliber. There is no evidence of deep vein thrombosis. Normal color flow and spectral analysis Positive for thrombus in the superficial basilic vein Impression: Negative for DVT.. Positive for thrombus in the superficial left basilic vein
--- NOTE | 2024-12-03 19:43 | PD.EDEXREM ---
ED Extremity Problem RME/HPI General Chief complaint: Skin/Abscess/Foreign Body Stated complaint: Lump to left AC X 3 days Time Seen by Provider: 12/03/24 19:32 Arrival date/time: 12/03/24 18:36 54F with history of lung cancer presents to ED with 3 days of lump on L A/C area. Limitations: no limitations Related Data Home Medications ?Medication ?Instructions ?Recorded ?Confirmed tramadol 50 mg tablet 50 mg PO PRN PRN Pain 05/09/22 05/09/22 Allergies Allergy/AdvReac Type Severity Reaction Status Date / Time No Known Allergies Allergy Verified 12/03/24 18:42 Review of Systems Review of Systems Systems Reviewed: All systems reviewed, normal except as documented Integumentary/Breasts Skin/Breast: Reports as per HPI and Reports skin swelling Past Medical History Past Medical History NEUROLOGIC: Negative Neurological Disorders CARDIAC: Negative Congestive Heart Failure RESPIRATORY: Negative Chronic Obstructive Pulmonary Disease (COPD) GASTROINTESTINAL: Negative Gastrointestinal Disorders GENITOURINARY: Negative Genitourinary Disorders or Renal Disease REPRODUCTIVE: Positive Previous Pregnancies (X5) MUSCULOSKELETAL: Positive Arthritis ENDOCRINE: Negative Diabetes Mellitus Type 1 or Diabetes Mellitus Type 2 HEMATOLOGIC: Negative Blood Disorders OTHER HISTORY: Positive Chicken Pox, Measles and Mumps; Negative Blood Transfusions or Anesthesia Reactions Family History FAMILY HISTORY: Positive Family Cardiac Disorders (FATHER/ DM) and Family Cancer (MATERNAL AUNTS BREAST AND UTERINE CA) Surgical History SURGICAL: Negative Ear Surgery, Abdominal Surgery or Joint Replacement Social History SMOKING STATUS: Never smoker ED Exam General Limitations: Present no limitations General appearance: Present alert and in no apparent distress Head Head exam: Present atraumatic Neck Neck exam: Present normal inspection, full ROM and trachea midline Chest Chest inspection: Present normal inspection and symmetric chest wall rise Extremities Exam Extremities exam: Present full ROM Expanded Upper Extremity Exam Elbow exam: Present full ROM and swelling (L A/C area) Neurological Exam Neurological exam: Present alert and oriented X3 Psychiatric Psychiatric exam: Present normal affect and normal mood Skin Skin exam: Present warm, dry, intact and normal color Course Quality Measures none Orders Category Date Time Status darling wrap [Splint / Immobilizer] STAT Care 12/03/24 21:06 Completed US venous doppler UE LT Stat Exams 12/03/24 19:32 Completed Vital Signs Vital signs: Vital Signs Temperature 98.3 F 12/03/24 19:27 Pulse Rate 87 12/03/24 19:27 Respiratory Rate 18 12/03/24 19:27 Blood Pressure 104/68 12/03/24 19:27 Pulse Oximetry (%) 100 12/03/24 19:27 O2 at 100% on RA and WNLs Extremity Problem MDM Narrative MDM Narrative:: 54F with history of lung cancer presents to ED with 3 days of lump on L A/C area. Physical exam reveals area of swelling on L A/C area. No redness or tenderness. Normal WOB. Patient is afebrile, calm, and alert. US superficial thrombosis. Given DARLING and career technical counselor. Patient data External records reviewed:: [facility] previous records Clinical information provided by:: patient Social determinants that could affect healthcare access:: none Patient has the following chronic illnesses:: lung cancer How is presenting disease/condition affected by chronic disease/condition?: exacerbated by Evaluation data The following diagnostics were reviewed and interpreted by me:: radiology exam(s) Lab and/or radiology exams considered but not ordered:: ordered Interpretation Summary: above Medications / Prescriptions Medications or Prescriptions considered but not ordered:: not ordered Medication administrations:: n/a Consultations Consultation(s) initiated? (list below): No Diagnosis Extremity Problem Differential Diagnosis: herpes zoster, gout, cellulitis, superficial thrombophlebitis, deep venous thrombosis of upper extremity, lower extremity edema, deep vein thrombosis of lower extremity and other (skin swelling, lymphadenopathy) Most likely diagnosis given after review of the tests above:: superficial vein thrombosis Admission Indicated Admission indicated?: not indicated Admission Request Was there a request for admission?: No Disposition Plan Disposition Plan: Discharge Discharge Attestation Discharge Attestation: The patient and all family members were given an opportunity to ask questions and understood the discharge instructions. Discharge instructions specifically effects, indications for sooner follow up or return to the emergency department, and the expected course of current diagnosis. Patient condition: Stable Discharge Plan Plan Patient Disposition: HOME (Self Care) Discharge Disposition comment: Stable Prescriptions/Referrals Prescriptions/Med Rec: No Action tramadol 50 mg Tablet 50 mg PO PRN PRN (Reason: Pain) Referrals: Shaila Read MD [Primary Care Provider, Family Practice] - In 1 week Problem List Clinical Impression: Superficial vein thrombosis Patient/Caregiver Discharge Instructions Education Materials: ED Thrombophlebitis, Superficial Additional Instructions: Please follow-up with PCP within 24-48 hours and return immediately if symptoms worsen. Print Language: Jordanian Stand Alone Forms: Patient Portal Info Letter PA/PMP PROJECT MANAGER Supervising Physician PA/PMP PROJECT MANAGER Supervising Physician: Dr. Mensah
== END 2024-12-03 21:08 | disposition home or self-care (01) ==
PROVIDERS: Emergency Provider Emergency Medicine; PCP Family Medicine
DX: I80.9 Phlebitis and thrombophlebitis of unspecified site (principal)
CPT/HCPCS: 93971; 99282

== ENCOUNTER → 2024-12-30 | Outpatient (CLI) | payer BC, SELFPAY ==
--- NOTE | 2024-12-30 08:45 | XR_ITS ---
EXAMINATION: PET/CT FUSION SKULL TO THIGH EXAM DATE AND TIME: December 30, 2024, 1022 hours, comparison PET/CT scan July 21, 2024, PET/CT scan December 27, 2023 INDICATIONS: Lung cancer diagnosis restaging post treatment, PET/CT scan July 21, 2024 stable non-hypermetabolic 15 mm pulmonary nodule right midlung, stable osteoblastic metastatic disease CTDI:vol (mGy) 4.21 DLP: (mGycm) 732.07 PROCEDURE: 12.8 mCi FDG was administered intravenously To allow for distribution and uptake of radiotracer, the patient was allowed to rest quietly in a shielded room. Imaging was performed on an integrated 16-slice PET/CT scanner, with scanning from the skull base to the mid thigh. Serum blood glucose at the time of the injection was measured 84 mg/dL. CT scanning was performed without oral or intravenous contrast material. FINDINGS: Head and Neck: There is no luca hypermetabolism in the neck. The visualized portions of the brain are normal in appearance on CT. Chest: Stable non-hypermetabolic 15 mm pulmonary nodule right midlung Abdomen and Pelvis: 39 mm hypermetabolic metastatic left adrenal mass Musculoskeletal: Non-hypermetabolic sclerotic areas T2, L3, L5, posterior right iliac bone, posterior margin left acetabulum and bilateral ribs again noted without significant change IMPRESSION: Stable 15 mm non-hypermetabolic pulmonary nodule right midlung Interval 39 mm hypermetabolic metastatic left adrenal mass Stable osseous metastatic disease
[2024-12-30 09:21] LABS: HCG Qualitative,Urine Negative
== END | disposition home or self-care (01) ==
PROVIDERS: PCP Family Medicine; Referring Provider Internal Medicine Hematology & Oncology; Visit Provider Internal Medicine Hematology & Oncology
DX: R91.8 Other nonspecific abnormal finding of lung field (principal); C79.51 Secondary malignant neoplasm of bone; C79.72 Secondary malignant neoplasm of left adrenal gland; Z32.00 Encounter for pregnancy test, result unknown
CPT/HCPCS: 78815; 81025; A9552

== ENCOUNTER → 2025-01-02 | Outpatient (CLI) | payer BC, SELFPAY ==
--- NOTE | 2025-01-02 14:45 | XR_ITS ---
EXAMINATION: MRI brain with intravenous contrast TECHNIQUE: Multiple axial sagittal coronal brain MRI images post intravenous contrast Date and time: January 02, 2025, 1522 hours, comparison July 31, 2024 INDICATIONS: Diagnosis malignant neoplasm of lower lobe right bronchus or lung secondary malignant neoplasm of bone, history headaches blurred vision 2 years FINDINGS: Ventricles are normal in size and configuration. No mass effect upon the ventricular system. No effacement cortical sulcal markings Fourth ventricle is midline Normal 7th and 8th nerve complexes No abnormal enhancing cerebellar or cerebral lesions Pituitary is not enlarged Cerebellar tonsils normal position IMPRESSION: No abnormal enhancing cerebellar or cerebral lesions
== END | disposition home or self-care (01) ==
PROVIDERS: PCP Family Medicine; Referring Provider Internal Medicine Hematology & Oncology; Visit Provider Internal Medicine Hematology & Oncology
DX: R51.9 Headache, unspecified (principal); H53.8 Other visual disturbances; C34.31 Malignant neoplasm of lower lobe, right bronchus or lung; C79.51 Secondary malignant neoplasm of bone
CPT/HCPCS: 70552; A9577

== ENCOUNTER → 2025-01-21 | Outpatient (CLI) | payer BC, SELFPAY ==
[2025-01-21 13:23] LABS: Basophils # (Auto) 0.1 Thou/mm3 (0.0-0.2); Basophils % (Auto) 1 % (0-2.5); Eosinophils # (Auto) 0.2 Thou/mm3 (0.0-0.5); Eosinophils % (Auto) 3 % (0-10); Hematocrit 30.0 % (36.0-46.0); Hemoglobin 10.0 g/dL (12.0-16.0); Immature Granulocytes Auto 0.02 Thou/mm3 (0.00-0.00); Lymphocytes # (Auto) 1.9 Thou/mm3 (1.0-4.8); Lymphocytes % (Auto) 34 % (10-50); Mean Corpuscular HGB Conc 33.3 g/dl (31.0-37.0); Mean Corpuscular Hemoglobin 30.6 pg (25.0-35.0); Mean Corpuscular Volume 92 fL (80-100); Monocytes # (Auto) 0.5 Thou/mm3 (0.0-0.8); Monocytes % (Auto) 9 % (0-12); Neutrophils # (Auto) 3.0 Thou/mm3 (1.8-7.7); Neutrophils % (Auto) 54 % (37-80); Nucleated Red Blood Cell # 0.00 Thou/mm3 (0.00-0.00); Nucleated Red Blood Cell % 0 /100 WBC (0); Platelet Count 229 Thou/mm3 (140-440); RDW Standard Deviation 48.1 fL (36.4-46.3); Red Blood Count 3.27 Miln/mm3 (4.00-5.20); White Blood Count 5.5 Thou/mm3 (3.6-11.0)
[2025-01-21 13:44] LABS: Alanine Aminotransferase 12 U/L (10-49); Albumin, Serum 4.7 gm/dL (3.5-5.0); Albumin/Globulin Ratio 1.6 (1.2-2.2); Alkaline Phosphatase 101 U/L (46-116); Anion Gap 11 (7-16); Aspartate Amino Transferase 26 U/L (0-34); BUN/Creatinine Ratio 12 Ratio (12-20); Bilirubin,Total 0.5 mg/dL (0.3-1.2); Blood Urea Nitrogen 14 mg/dL (9-23); Calcium 9.6 mg/dL (8.3-10.6); Calcium (Corrected) 9.6 mg/dL (8.5-10.1); Carbon Dioxide 25.1 mMol/L (20.0-31.0); Chloride 103 mMol/L (98-107); Creatinine (Component) 1.2 mg/dL (0.6-1.3); Globulin 2.9 gm/dL (2.3-3.5); Glucose 91 mg/dL (74-106); Osmolality,Calculated 278 (275-295); Potassium 4.2 mMol/L (3.4-5.1); Sodium 139 mMol/L (136-145); Total Protein 7.6 gm/dL (5.7-8.2); eGFR 54 See Note
== END | disposition home or self-care (01) ==
LOC: SCTO 11:48
PROVIDERS: PCP Family Medicine; Referring Provider Internal Medicine Hematology & Oncology; Visit Provider Internal Medicine Hematology & Oncology
DX: C34.31 Malignant neoplasm of lower lobe, right bronchus or lung (principal); C79.51 Secondary malignant neoplasm of bone
CPT/HCPCS: 36415; 80053; 85025

== ENCOUNTER 2025-01-22 15:22 | Emergency (ER) | payer BC, SELFPAY ==
[2025-01-22 15:24] VITALS: BMI 26.6
[2025-01-22 15:37] VITALS: BP 125/83; PULSE 88; RESP 18; TEMP 36.6; O2SAT 100
--- NOTE | 2025-01-22 15:37 | XR_ITS ---
Examination: CT brain head without contrast. 2-D sagittal coronal reconstructions Date and time of exam: January 22, 2025, 1550 hours INDICATIONS: Headaches and dizziness today, diagnosis lung cancer CTDI: vol (mGy): 46.1 DLP: (mGycm): 874 Technique: Multiple CT axial sections of the brain have been obtained, 5 mm slice thickness. Contrast has not been administered. 2-D sagittal, coronal reconstructions have been obtained Low dose protocols were performed. One or more of the following dose reduction techniques were used; automated exposure control, adjustment of the mA and/or KV according to patient size, use of iterative reconstruction technique. Findings: No significant ventricular enlargement. Intra-axial or extra-axial hemorrhage density is not seen. No mass effect or midline shift Basal cisterns are not remarkable. Fourth ventricle is midline. Cranial vault intact. Impression: Negative for acute hemorrhage, mass effect or midline shift Advise clinical correlation and follow-up accordingly
--- NOTE | 2025-01-22 15:37 | XR_ITS ---
Upright PA chest film on 01/22/2025 at 354 Comparison study 05/29/2023 INDICATION: Chest pain dizzy and weakness FINDINGS: Heart mediastinum and hilar regions appear radiographically normal. There is a thick patchy somewhat linear strand of infiltrate radiating obliquely down into the right posterior lower lobe. This is unchanged from the last chest film of 05/29/2023 I have seen a previous chest CT showing a small pulmonary nodular lesion in the right midlung. There is a very faint 9 mm nodule noted overlapping the lower right lung and overlapping the ill-defined linear infiltrate. I have marked this with the digital arrow on the film. The left lung and pleural space are clear. There is what could be an osteoblastic lesion in the posterolateral right seventh rib, and possibly in the posterior right fifth rib IMPRESSION: 1. There is a patchy strandy and somewhat thick linear infiltrate extending obliquely down into the right posterior lung base. 2. Interval 9 mm nodular density adjacent to this infiltrate in the right lower lobe 3. R2 areas of abnormal sclerosis involving the fifth and seventh ribs on the right, its possible these could relate to blastic metastatic lesions.
--- NOTE | 2025-01-22 15:37 | EKG_ITS ---
[facility] Test Date: 2025-01-22 Pat Name: CHAD ROMAN Department: Room: - Gender: Female [employer]: : 1970 Requested By: Randell Henriquez Order Number: [id number] Reading MD: Randell Henriquez Measurements Intervals [place] Rate: 93 P: 73 IN: 114 QRS: 18 QRSD: 74 T: -5 QT: 359 QTc: 447 Interpretive Statements SINUS RHYTHM WITH SHORT IN INTERVAL LOW QRS VOLTAGE IN PRECORDIAL LEADS [QRS DEFLECTION < 1.0 mV IN CHEST LEADS] MODERATE T-WAVE ABNORMALITY, CONSIDER LATERAL ISCHEMIA [-0.1+ mV T-WAVE IN I/aVL/V5/V6] No previous ECG available for comparison /store/S0/[id number]
--- NOTE | 2025-01-22 15:38 | EDNOTE_ITS ---
ED Chest Pain RME/HPI General Chief Complaint: Chest Pain Stated Complaint: CHEST PAIN, WALKING SIDEWAYS Time Seen by Provider: 01/22/25 15:37 Arrival date/time: 01/22/25 15:22 54-year-old female patient with significant history of lung cancer, diagnosed more than 2 years ago currently on targeted chemotherapy, last radiation, was sent to us by cancer center for chest pain. Patient symptoms started yesterday afternoon around 24 hours ago, sudden onset of left-sided chest pain radiating to the left arm, initially severe now getting almost gone. Patient is also concerned because yesterday while getting up from the couch to the table she noted walking sideways on the left lasting for few seconds. She denies any need headache denies any dizziness denies any slurring of speech denies any upper or lower extremity weakness. Currently her walking side which is totally gone no recurrence today. She is not taking any blood thinner. Related Data Home Medications ?Medication ?Instructions ?Recorded ?Confirmed tramadol 50 mg tablet 50 mg PO PRN PRN Pain 05/09/22 Previous Rx's ?Medication ?Instructions ?Recorded levofloxacin 500 mg tablet 500 mg PO Q24H 7 days #7 ta bs 01/22/25 Allergies Allergy/AdvReac Type Severity Reaction Status Date / Time No Known Allergies Allergy Verified 01/22/25 15:32 Review of Systems Review of Systems Narrative Review of Systems: Review of system reviewed and within normal limits except mentioned in HPI ED Exam Narrative Physical exam: VITAL SIGNS: Reviewed. GENERAL APPEARANCE: Alert and interactive, follows commands, no acute distress, HEAD AND FACE: Non-traumatic. ENT: PERRL, pink conjunctivitis, eyelid no trauma, Mucous membrane moist. NECK: Supple, nontender, no nuchal rigidity. CHEST: No tenderness, no crepitus, no paradoxical movement, no retractions. LUNGS: Clear, well ventilated, symmetric, no rales, no wheezing, no ronchi, no stridor, good breath sounds bilaterally. HEART: Regular rate, regular rhythm, no murmur, no gallops. ABDOMEN: Soft, positive bowel sounds, nondistended, no guarding, nontender, no rebound, no masses, RECTAL: Deferred. GENITAL: Deferred. NEUROLOGICAL: Gross motor function intact sensory function intact, Appropriate for age. MUSCULOSKELETAL: low back nontender, full range of motion. EXTREMITIES: Nontender, full range of motion. SKIN: Color pink, dry, no rash, no lacerations, no abrasions, no contusions. LYMPHATICS: Deferred. Course Quality Measures none Orders Category Date Time Status EKG (ED ONLY) *Do not use* NOW Care 01/22/25 15:[address] head/brain wo con Stat Exams 01/22/25 15:37 Completed EKG (ED Only) Stat Exams 01/22/25 15:37 Draft XR chest 1V Stat Exams 01/22/25 15:37 Completed B-Type Natriuretic Peptide Stat Lab 01/22/25 16:08 Completed CBC Stat Lab 01/22/25 16:08 Completed Comprehensive Metabolic Panel Stat Lab 01/22/25 16:08 Completed Partial Thromboplastin Time Stat Lab 01/22/25 16:08 Completed Troponin I Stat Lab 01/22/25 16:08 Completed Troponin I Stat Lab 01/22/25 18:05 Completed levoFLOXacin [Levaquin] Med 01/22/25 19:25 Discontinued 500 mg PO X1 ONE Vital Signs Vital signs: Vital Signs Temperature 98 F 01/22/25 15:37 Pulse Rate 88 01/22/25 15:37 Respiratory Rate 18 01/22/25 15:37 Blood Pressure 125/83 01/22/25 15:37 Pulse Oximetry (%) 100 01/22/25 15:37 Oxygen Delivery Method Room Air 01/22/25 15:37 Chest Pain MDM Narrative MDM Narrative:: 54-year-old female patient with significant history of lung cancer, diagnosed more than 2 years ago currently on targeted chemotherapy, last radiation, was sent to us by cancer center for chest pain. Patient symptoms started yesterday afternoon around 24 hours ago, sudden onset of left-sided chest pain radiating to the left arm, initially severe now getting almost gone. Patient is also concerned because yesterday while getting up from the couch to the table she noted walking sideways on the left lasting for few seconds. She denies any need headache denies any dizziness denies any slurring of speech denies any upper or lower extremity weakness. Currently her walking side which is totally gone no recurrence today. She is not taking any blood thinner. Patient EKG is interpreted by me showed sinus rhythm, ventricular rate of 93 bpm, no ST segment elevation depression noted. Patient's workup CBC showed no leukocytosis, creatinine is normal, initial troponin was noted to be 0.097 after 3 hours still almost the same, 0.0107 Prior to discharge patient is not having any chest pain. Patient chest x-ray showed There is a patchy strandy and somewhat thick linear infiltrate extending obliquely down into the right posterior lung base. 2. Interval 9 mm nodular density adjacent to this infiltrate in the right lower lobe 3. R2 areas of abnormal sclerosis involving the fifth and seventh ribs on the right, its possible these could relate to blastic metastatic lesions. Plan of care discussed with the patient/shared decision regarding start her on antibiotic and she agrees. Patient will be given Levaquin. Patient was advised to closely follow-up with principal mechanical engineer next week. Patient data External records reviewed:: None Clinical information provided by:: patient and family Social determinants that could affect healthcare access:: none Patient has the following chronic illnesses:: History of lung cancer How is presenting disease/condition affected by chronic disease/condition?: exacerbated by Evaluation data The following diagnostics were reviewed and interpreted by me:: lab results, radiology exam(s) and EKG tracing(s) Lab and/or radiology exams considered but not ordered:: None Interpretation Summary: See MDM Medications / Prescriptions Medications or Prescriptions considered but not ordered:: None Medication administrations:: Medication Administration History Discontinued Medications Levofloxacin (Levofloxacin 250 Mg Tablet) 500 mg PO X1 ONE Stop: 01/22/25 19:26 Levaquin Consultations Consultation(s) initiated? (list below): No Diagnosis Chest Pain Differential Diagnosis: atypical chest pain and chest pain Most likely diagnosis given after review of the tests above:: Pneumonia, history of lung cancer, chest pain Admission Indicated Admission indicated?: not indicated Admission Request Was there a request for admission?: No Disposition Plan Disposition Plan: Discharge Discharge Attestation Discharge Attestation: The patient and all family members were given an opportunity to ask questions and understood the discharge instructions. Discharge instructions specifically effects, indications for sooner follow up or return to the emergency department, and the expected course of current diagnosis. Patient condition: Stable Discharge Plan Plan Patient Disposition: HOME (Self Care) Discharge Disposition comment: Stable Prescriptions/Referrals Prescriptions/Med Rec: New levofloxacin 500 mg tablet 500 mg PO Q24H 7 Days Qty: 7 0RF No Action tramadol 50 mg Tablet 50 mg PO PRN PRN (Reason: Pain) Referrals: Shaila Read MD [Primary Care Provider, Family Practice] - In 1 week Problem List Clinical Impression: Chest pain, Pneumonia, History of lung cancer Patient/Caregiver Discharge Instructions Discharge Activity: activity as tolerated Education Materials: Understanding the Pain Response Additional Instructions: Thank you for the opportunity for serving you today. You are stable for discharged . You are advised to: Follow-up with your PCP in 1 to 2 days Return to ED for worsening of symptoms, recurrence of chest Increase oral fluids Take your medication as prescribed Please your PCP to refer you to a principal mechanical engineer next week. Print Language: Divehi Stand Alone Forms: Nesha Award Info., Patient Portal Info Letter PA/[employer] Supervising Physician PA/[employer] Supervising Physician: MD Donna
[2025-01-22 16:21] LABS: Basophils # (Auto) 0.1 Thou/mm3 (0.0-0.2); Basophils % (Auto) 1 % (0-2.5); Eosinophils # (Auto) 0.1 Thou/mm3 (0.0-0.5); Eosinophils % (Auto) 2 % (0-10); Hematocrit 30.1 % (36.0-46.0); Hemoglobin 10.4 g/dL (12.0-16.0); Immature Granulocytes Auto 0.01 Thou/mm3 (0.00-0.00); Lymphocytes # (Auto) 2.1 Thou/mm3 (1.0-4.8); Lymphocytes % (Auto) 36 % (10-50); Mean Corpuscular HGB Conc 34.6 g/dl (31.0-37.0); Mean Corpuscular Hemoglobin 31.1 pg (25.0-35.0); Mean Corpuscular Volume 90 fL (80-100); Monocytes # (Auto) 0.6 Thou/mm3 (0.0-0.8); Monocytes % (Auto) 9 % (0-12); Neutrophils # (Auto) 3.1 Thou/mm3 (1.8-7.7); Neutrophils % (Auto) 52 % (37-80); Nucleated Red Blood Cell # 0.00 Thou/mm3 (0.00-0.00); Nucleated Red Blood Cell % 0 /100 WBC (0); Platelet Count 232 Thou/mm3 (140-440); RDW Standard Deviation 46.5 fL (36.4-46.3); Red Blood Count 3.34 Miln/mm3 (4.00-5.20); White Blood Count 5.9 Thou/mm3 (3.6-11.0)
[2025-01-22 16:35] LABS: Partial Thromboplastin Time 22.9 Seconds (22.0-36.0)
[2025-01-22 16:38] LABS: B-Type Natriuretic Peptide 59 pg/mL (0-100)
[2025-01-22 16:43] LABS: Alanine Aminotransferase 14 U/L (10-49); Albumin, Serum 5.1 gm/dL (3.5-5.0); Albumin/Globulin Ratio 1.8 (1.2-2.2); Alkaline Phosphatase 110 U/L (46-116); Anion Gap 12 (7-16); Aspartate Amino Transferase 27 U/L (0-34); BUN/Creatinine Ratio 11 Ratio (12-20); Bilirubin,Total 0.6 mg/dL (0.3-1.2); Blood Urea Nitrogen 13 mg/dL (9-23); Calcium 10.2 mg/dL (8.3-10.6); Calcium (Corrected) 10.2 mg/dL (8.5-10.1); Carbon Dioxide 26.6 mMol/L (20.0-31.0); Chloride 105 mMol/L (98-107); Creatinine (Component) 1.2 mg/dL (0.6-1.3); Estimated Creatinine Clearance 43.2 mL/min (>60); Globulin 2.9 gm/dL (2.3-3.5); Glucose 94 mg/dL (74-106); Osmolality,Calculated 286 (275-295); Potassium 4.0 mMol/L (3.4-5.1); Sodium 144 mMol/L (136-145); Total Protein 8.0 gm/dL (5.7-8.2); eGFR 54 See Note
[2025-01-22 17:41] LABS: Troponin I 0.097 ng/mL (0.0-0.045)
[2025-01-22 19:00] LABS: Troponin I 0.105 ng/mL (0.0-0.045)
[2025-01-22 19:21] VITALS: BP 131/79; PULSE 89; RESP 18; TEMP 37.1; O2SAT 100
== END 2025-01-22 19:50 | disposition home or self-care (01) ==
PROVIDERS: Nurse Practitioner Family; Emergency Provider Family Medicine; PCP Family Medicine
DX: J18.9 Pneumonia, unspecified organism (principal); C34.91 Malignant neoplasm of unspecified part of right bronchus or lung; R51.9 Headache, unspecified; R42 Dizziness and giddiness; R53.1 Weakness; R94.31 Abnormal electrocardiogram [ECG] [EKG]
CPT/HCPCS: 36415; 70450; 71045; 80053; 83880; 84484; 85025; 85730; 93005; 99283; A9270

== ENCOUNTER → 2025-01-29 | Outpatient (CLI) | payer BC, SELFPAY ==
--- NOTE | 2025-01-29 11:19 | XR_ITS ---
Examination: Venous duplex lower extremity sonogram, bilateral. Date and time of exam: January 29, 2025, 1128 hours INDICATIONS: Venous Doppler December 03, 2024 positive for thrombus in the superficial left basilic vein, history leg pain Technique: Multiple sonographic images of the deep venous system have been obtained. B-mode/2-D grayscale imaging of vascular structures and Doppler spectral analysis (waveforms) and color performed Both legs are examined. Findings: Deep venous systems do not demonstrate abnormal echogenicity. All visualized deep veins exhibit compressibility. All visualized deep veins exhibit augmentation. Impression: Negative for deep vein thrombosis
== END | disposition home or self-care (01) ==
LOC: CDIM 11:15
PROVIDERS: PCP Family Medicine; Referring Provider Internal Medicine Hematology & Oncology; Visit Provider Internal Medicine Hematology & Oncology
DX: M79.605 Pain in left leg (principal); M79.604 Pain in right leg; C34.31 Malignant neoplasm of lower lobe, right bronchus or lung; C79.51 Secondary malignant neoplasm of bone
CPT/HCPCS: 93970

== ENCOUNTER 2025-01-30 22:43 | Inpatient (IN) | payer BC, SELFPAY ==
[2025-01-30 22:44] VITALS: BMI 26.6
--- NOTE | 2025-01-30 22:48 | EKG_ITS ---
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
[2025-01-30 22:56] VITALS: BP 133/78; PULSE 93; RESP 18; TEMP 36.9; O2SAT 100
--- NOTE | 2025-01-30 23:11 | XR_ITS ---
EXAMINATION: AP chest single view TECHNIQUE: AP portable upright chest single view Date and time: January 30, 2025, 1122 hours, comparison January 22, 2025 INDICATIONS: Chest pain shortness of breath beginning 2 hours ago FINDINGS: Nodular density in the right midlung again depicted Minor atelectasis right base Normal heart size No lobar pneumonia or pulmonary edema Moderate osteopenia IMPRESSION: No lobar pneumonia or pulmonary edema
--- NOTE | 2025-01-30 23:11 | PD.EDRME ---
Rapid Medical Screening Exam RME Arrival date/time: 01/30/25 22:43 54F with history of lung cancer presents to ED with 2 hours of CP and some SOB. Patient recently here for this, but denies cough. Chief Complaint: Chest Pain Time Seen by Provider: 01/30/25 23:12 Vital signs: Vital Signs Temperature 98.4 F 01/30/25 22:56 Pulse Rate 93 01/30/25 22:56 Respiratory Rate 18 01/30/25 22:56 Blood Pressure 133/78 H 01/30/25 22:56 Pulse Oximetry (%) 100 01/30/25 22:56 Oxygen Delivery Method Room Air 01/30/25 22:56 Exam: Clear lungs. Normal WOB. Clinical Impression: CAP vs atypical chest pain vs ACS vs PE
--- NOTE | 2025-01-30 23:50 | EDNOTE_ITS ---
ED Chest Pain RME/HPI General Chief Complaint: Chest Pain Stated Complaint: CHEST PAIN Time Seen by Provider: 01/30/25 23:12 Arrival date/time: 01/30/25 22:43 RME / HPI RME / HPI narrative: 01/30/25 22:43 54F with history of lung cancer presents to ED with 2 hours of CP and some SOB. Patient recently here for this, but denies cough. DR. HAYS MAIN ED EVALUATION: 54 y/o female with Hx of HLD and Stage IV Lung CA and undergoing Targeted Chemotherapy PO presents to ED c/o worsened BL chest pain radiating to the center back and LUE, as well as posterior headache with right-sided jaw pain x 2.5 hours. Pain is described as pressure and tightness. Patient was seen 8 days ago for similar symptoms and was diagnosed and treated with ABX for possible PNA. She believes symptoms are related as they occur simultaneously. Denies any history of smoking. Cardiac FHx reported. Denies PMHx of HTN and DM. Exam: Clear lungs. Normal WOB. Impression: CAP vs atypical chest pain vs ACS vs PE Related Data Home Medications ?Medication ?Instructions ?Recorded ?Confirmed tramadol 50 mg tablet 50 mg PO PRN PRN Pain 05/09/22 Allergies Allergy/AdvReac Type Severity Reaction Status Date / Time No Known Allergies Allergy Verified 01/30/25 22:48 Review of Systems Review of Systems Systems Reviewed: All systems reviewed, normal except as documented Past Medical History Past Medical History CARDIAC: Positive Hypercholesterolemia RESPIRATORY: Positive Pneumonia REPRODUCTIVE: Positive Previous Pregnancies (X5) MUSCULOSKELETAL: Positive Arthritis OTHER HISTORY: Positive Chemotherapy, Chicken Pox, Measles, Mumps, Cancer and Lung Cancer (Stage IV; 2022) Family History FAMILY HISTORY: Positive Family Cardiac Disorders (FATHER/ DM) and Family Cancer (MATERNAL AUNTS BREAST AND UTERINE CA) ED Exam Narrative Physical exam: Generally patient is alert and in no obvious distress, heart regular rate and rhythm, lungs clear to auscultation equal bilaterally, extremities show no edema or no asymmetric swelling, abdomen is soft and nontender, neurologic exam shows [place] Coma Scale of 15 without focal motor deficit Course Quality Measures none Orders Category Date Time Status CT Screening NOW Care 01/30/25 23:58 Active EKG (ED ONLY) *Do not use* NOW Care 01/30/25 22:48 Completed Notify provider NOW Care 01/31/25 01:[address] angio chest Stat Exams 01/30/25 23:58 Taken EKG (ED Only) Stat Exams 01/30/25 22:48 Draft XR chest 1V portable Stat Exams 01/30/25 23:11 Completed B-Type Natriuretic Peptide Stat Lab 01/30/25 23:48 Completed CBC Stat Lab 01/30/25 23:48 Completed CBC Stat Lab 01/31/25 02:10 Received Comprehensive Metabolic Panel Stat Lab 01/30/25 23:48 Completed Lactate (Lactic Acid) Stat Lab 01/30/25 23:48 Completed PTT [Partial Thromboplastin Time] Stat Lab 01/31/25 02:10 Received Partial Thromboplastin Time AM DRAW Lab 02/02/25 05:00 Ordered Procalcitonin Stat Lab 01/30/25 23:48 Completed Prothrombin Time with INR AM DRAW Lab 02/02/25 05:00 Ordered Troponin I Stat Lab 01/30/25 23:48 Completed Troponin I Stat Lab 01/31/25 01:52 Received Azithromycin Po [Zithromax PO] Med 01/31/25 02:01 Discontinued 500 mg PO X1 ONE Heparin Inj Med 01/31/25 01:57 Once 4,800 unit IV X1 ONE Heparin/D5w 25K 250 ML Ivpb [Heparin in D5w Ivpb] Med 01/31/25 02:00 Ordered 25,000 unit in 250 ml IV 18 units/kg/hr cefTRIAXone/D5w 1gm IV premix [Rocephin/D5w 1gm IV Med 01/31/25 02:01 Active premix] 1 gm in 50 ml IV X1 Vital Signs Vital signs: Vital Signs Temperature 98.4 F 01/30/25 22:56 Pulse Rate 93 01/30/25 22:56 Respiratory Rate 18 01/30/25 22:56 Blood Pressure 133/78 H 01/30/25 22:56 Pulse Oximetry (%) 100 01/30/25 22:56 Oxygen Delivery Method Room Air 01/30/25 22:56 Chest Pain MDM Narrative MDM Narrative:: Scribe Attestation: Tricia Martin am scribing for and in the presence of Dr. Hays. Provider Notation: Although this document has been carefully reviewed, there may still be some phonetic and other typographical errors. These errors are purely grammatical due to imperfections in the software program and should not be construed in any way to compromise the substance of the patient's medical care during this visit. As it was 8 days ago, the troponin is slightly elevated tonight is 0.1. EKG 8 days ago shows some flipped T waves in the precordial leads however tonight there are no inverted T waves and no ST segment changes on the EKG. Nonetheless the troponin is still 0.1. CT angio of the chest showed evidence for pulmonary emboli involving the subsegmental branches of the right lower lobe pulmonary artery with small consolidations in bilateral upper lobes suspicious for pneumonia. Patient was bolused with heparin and started on a heparin drip. Patient was given Rocephin 1 g IV and azithromycin 500 mg p.o. I discussed this case with the hospitalist and the patient will require admission to the hospital for further treatment and evaluation. With the elevated troponin and evidence for pulmonary emboli, the diagnosis most appropriate for this patient would be a submassive pulmonary embolus. Patient data External records reviewed:: [facility] previous records (Reviewed prior ED records from 01/22/25. Patient was seen for Chest pain.) Clinical information provided by:: patient Social determinants that could affect healthcare access:: none Patient has the following chronic illnesses:: HLD, Lung CA How is presenting disease/condition affected by chronic disease/condition?: exacerbated by Evaluation data The following diagnostics were reviewed and interpreted by me:: lab results, radiology exam(s) and EKG tracing(s) Lab and/or radiology exams considered but not ordered:: None Interpretation Summary: RADIOLOGY Chest X-Ray: FINDINGS: Nodular density in the right midlung again depicted Minor atelectasis right base Normal heart size No lobar pneumonia or pulmonary edema Moderate osteopenia IMPRESSION: No lobar pneumonia or pulmonary edema Chest CTA: Findings: Pulmonary emboli in the subsegmental branches of the right lower lobe pulmonary artery. The left ventricle measures 4.0 cm, the right ventricle is measures 2.9 cm. The mediastinum demonstrates no evidence of mass or lymphadenopathy. The thoracic aorta is unremarkable. There is no pericardial effusion. Right lower lobe lung nodule measuring 1.8 cm. No evidence of pleural effusion or pneumothorax. Small consolidation in the right upper lobe. Small consolidation in the left upper lobe. The osseous structures are unremarkable. The visualized upper abdominal viscera are unremarkable. Bilateral breast implants. Dilated left atrium. Impression: Right lower lobe lung nodule, further evaluation to assess for renal cancer is recommended. Dilated left atrium. Small consolidations in the bilateral upper lobes suspicious for pneumonia. Medications / Prescriptions Medications or Prescriptions considered but not ordered:: None Medication administrations:: Medication Administration History Heparin Sodium (Porcine) (Heparin Sod Inj 5000 Unit/Ml Vial) 4,800 unit 80 unit/kg (4800 unit) IV X1 ONE; Protocol Stop: 01/31/25 01:58 Heparin Sodium/Dextrose (Heparin In D5w Ivpb) 25,000 unit in 250 mls @ 10.777 mls/hr IV .[id number] ASHLEY; Protocol Stop: 02/14/25 01:59 Ceftriaxone Sodium/Dextrose (Rocephin/D5w 1gm Iv Premix) 1 gm in 50 mls @ 100 mls/hr IV X1 ONE Stop: 01/31/25 02:30 Discontinued Medications Azithromycin (Azithromycin 250 Mg Tablet) 500 mg PO X1 ONE Stop: 01/31/25 02:02 See above if any. Consultations Consultation(s) initiated? (list below): Yes Consultation #1 (Physician, Specialty, Details): Discussed with Dr. Del Angel for admission. Reviewed the patient?s HPI, PMHx, lab and/or radiology results. Discussed treatment plan. Will consult an admission to the hospitalist. Time: 02:11 Diagnosis Chest Pain Differential Diagnosis: pneumothorax, stable angina, unstable angina pectoris, atypical chest pain, st elevation myocardial infarction, costochondritis, chest pain and biliary colic Most likely diagnosis given after review of the tests above:: none Admission Indicated Admission indicated?: indicated Admission Request Was there a request for admission?: Yes Admission Attestation Admission request attestation: Discussed case with [] from Hospitalist service regarding admission. Discussed patients ED course, exam findings, labs, and radiology results. The Hospitalist [agrees,declines] to accept the patient for admission. Disposition Plan Disposition Plan: Admit Critical Care Time Critical Care Time Critical Care Time: Yes Total Critical Care Time (min.): 35 Attestation: Excluding other billable procedures Discharge Plan Plan Patient Disposition: Admit Acute Care w/in Hospital Prescriptions/Referrals Prescriptions/Med Rec: No Action tramadol 50 mg Tablet 50 mg PO PRN PRN (Reason: Pain) Referrals: Shaila Read MD [Primary Care Provider, Family Practice] - In 1 week Problem List Clinical Impression: Pulmonary emboli, Pneumonia, History of lung cancer Patient/Caregiver Discharge Instructions Print Language: Yakut Stand Alone Forms: Nesha Award Info., Patient Portal Info Letter
--- NOTE | 2025-01-30 23:58 | XR_ITS ---
Examination: CTA chest with intravenous contrast 2-D reconstructions 3-D reconstructions, vascular Date and time of exam: January 31, 2025, 1300 hours INDICATIONS: Onset chest pain shortness of breath today, clinical diagnosis pulmonary embolus CTDI: vol (mGy) 25.35 DLP: (mGycm) 396 Technique: Multiple axial sections of the thorax have been obtained. 3 mm slice thickness, from below the hemidiaphragms to above the apices of the lungs. Mediastinal and lung density settings have been obtained. 2-D sagittal and coronal reconstructions. 3-D angiographic renderings, 3-D volume renderings, 3D post processing, vascular maximum intensity projections obtained. Contrast administered is 100 cc Isovue-370. Low dose protocols were performed. One or more of the following dose reduction techniques were used; automated exposure control, adjustment of the mA and/or KV according to patient size, use of iterative reconstruction technique. Findings: No thoracic aortic aneurysmal dilatation or dissection Multiple small filling defects in right lower lobe pulmonary artery branches Mild enlargement left atrium left ventricle 18 mm pulmonary nodule with spiculated margins in the right lower lobe Mild opacity in both upper lobes consistent with pneumonia No visualized liver or splenic lesion 4.6 cm left adrenal mass No hydronephrosis Para-aortic lymphadenopathy, the largest lymph node 11 mm Moderate osteopenia IMPRESSION: Positive for small right lower lobe pulmonary artery emboli Mild pneumonia both upper lobes 18 mm pulmonary nodule spiculated margins in the right lower lobe, lung carcinoma high on the differential list Likely metastatic solid left adrenal mass, 4.6 cm Periaortic lymphadenopathy Recommend MRI abdomen adrenal glands follow-up pre and postcontrast, adrenal gland protocol
[2025-01-31] VITALS (57 sets, daily range): BP systolic 90–135; BP diastolic 47–84; PULSE 76–103; RESP 8–25; TEMP 36.6–36.9; O2SAT 95–100
[2025-01-31 00:03] LABS: Lactate (Lactic Acid) 1.5 mMol/L (0.4-2.0)
[2025-01-31 00:04] LABS: Basophils # (Auto) 0.0 Thou/mm3 (0.0-0.2); Basophils % (Auto) 1 % (0-2.5); Eosinophils # (Auto) 0.1 Thou/mm3 (0.0-0.5); Eosinophils % (Auto) 2 % (0-10); Hematocrit 29.2 % (36.0-46.0); Hemoglobin 9.6 g/dL (12.0-16.0); Immature Granulocytes Auto 0.02 Thou/mm3 (0.00-0.00); Lymphocytes # (Auto) 2.4 Thou/mm3 (1.0-4.8); Lymphocytes % (Auto) 33 % (10-50); Mean Corpuscular HGB Conc 32.9 g/dl (31.0-37.0); Mean Corpuscular Hemoglobin 29.6 pg (25.0-35.0); Mean Corpuscular Volume 90 fL (80-100); Monocytes # (Auto) 0.6 Thou/mm3 (0.0-0.8); Monocytes % (Auto) 9 % (0-12); Neutrophils # (Auto) 4.1 Thou/mm3 (1.8-7.7); Neutrophils % (Auto) 56 % (37-80); Nucleated Red Blood Cell # 0.00 Thou/mm3 (0.00-0.00); Nucleated Red Blood Cell % 0 /100 WBC (0); Platelet Count 190 Thou/mm3 (140-440); RDW Standard Deviation 45.8 fL (36.4-46.3); Red Blood Count 3.24 Miln/mm3 (4.00-5.20); White Blood Count 7.3 Thou/mm3 (3.6-11.0)
[2025-01-31 00:41] LABS: B-Type Natriuretic Peptide 21 pg/mL (0-100)
[2025-01-31 00:47] LABS: Alanine Aminotransferase 10 U/L (10-49); Albumin, Serum 4.8 gm/dL (3.5-5.0); Albumin/Globulin Ratio 2.0 (1.2-2.2); Alkaline Phosphatase 100 U/L (46-116); Anion Gap 11 (7-16); Aspartate Amino Transferase 22 U/L (0-34); BUN/Creatinine Ratio 14 Ratio (12-20); Bilirubin,Total 0.5 mg/dL (0.3-1.2); Blood Urea Nitrogen 17 mg/dL (9-23); Calcium 9.6 mg/dL (8.3-10.6); Calcium (Corrected) 9.6 mg/dL (8.5-10.1); Carbon Dioxide 25.7 mMol/L (20.0-31.0); Chloride 105 mMol/L (98-107); Creatinine (Component) 1.2 mg/dL (0.6-1.3); Estimated Creatinine Clearance 43.2 mL/min (>60); Globulin 2.4 gm/dL (2.3-3.5); Glucose 98 mg/dL (74-106); Osmolality,Calculated 284 (275-295); Potassium 3.8 mMol/L (3.4-5.1); Sodium 142 mMol/L (136-145); Total Protein 7.2 gm/dL (5.7-8.2); eGFR 54 See Note
[2025-01-31 00:50] LABS: Procalcitonin < 0.04 ng/ml (0.0-0.49)
[2025-01-31 01:01] LABS: Troponin I 0.106 ng/mL (0.0-0.045)
--- NOTE | 2025-01-31 01:58 | PRELIM_ITS ---
CT angiogram of the chest with intravenous contrast (axial sections with sagittal and coronal reformats) January 31, 2025 0100 hours Clinical History: PE Technique:Helical axial sections with sagittal and coronal reformats of the chest were obtained with intravenous contrast. Iterative reconstruction technique was employed to reduce patient radiation exposure. 3D/MIP reconstructed images were also provided. Comparison: None available at the time of this report. Findings: Pulmonary emboli in the subsegmental branches of the right lower lobe pulmonary artery. The left ventricle measures 4.0 cm, the right ventricle is measures 2.9 cm. The mediastinum demonstrates no evidence of mass or lymphadenopathy. The thoracic aorta is unremarkable. There is no pericardial effusion. Right lower lobe lung nodule measuring 1.8 cm. No evidence of pleural effusion or pneumothorax. Small consolidation in the right upper lobe. Small consolidation in the left upper lobe. The osseous structures are unremarkable. The visualized upper abdominal viscera are unremarkable. Bilateral breast implants. Dilated left atrium. Impression: Right lower lobe lung nodule, further evaluation to assess for renal cancer is recommended. Dilated left atrium. Small consolidations in the bilateral upper lobes suspicious for pneumonia. Discussion Details: Results verbally communicated to : Dr. Mensah at 01:53 AM 01/31/2025 Report Electronically Signed By: Bryce Stewart 01/31/2025 1:57:08 AM [EST]
[2025-01-31 02:17] LABS: Basophils # (Auto) 0.0 Thou/mm3 (0.0-0.2); Basophils % (Auto) 1 % (0-2.5); Eosinophils # (Auto) 0.1 Thou/mm3 (0.0-0.5); Eosinophils % (Auto) 2 % (0-10); Hematocrit 26.9 % (36.0-46.0); Hemoglobin 8.9 g/dL (12.0-16.0); Immature Granulocytes Auto 0.01 Thou/mm3 (0.00-0.00); Lymphocytes # (Auto) 2.1 Thou/mm3 (1.0-4.8); Lymphocytes % (Auto) 37 % (10-50); Mean Corpuscular HGB Conc 33.1 g/dl (31.0-37.0); Mean Corpuscular Hemoglobin 29.8 pg (25.0-35.0); Mean Corpuscular Volume 90 fL (80-100); Monocytes # (Auto) 0.5 Thou/mm3 (0.0-0.8); Monocytes % (Auto) 8 % (0-12); Neutrophils # (Auto) 2.9 Thou/mm3 (1.8-7.7); Neutrophils % (Auto) 52 % (37-80); Nucleated Red Blood Cell # 0.00 Thou/mm3 (0.00-0.00); Nucleated Red Blood Cell % 0 /100 WBC (0); Platelet Count 185 Thou/mm3 (140-440); RDW Standard Deviation 45.8 fL (36.4-46.3); Red Blood Count 2.99 Miln/mm3 (4.00-5.20); White Blood Count 5.6 Thou/mm3 (3.6-11.0)
[2025-01-31 02:28] LABS: Partial Thromboplastin Time 21.4 Seconds (22.0-36.0)
[2025-01-31] MEDS: AZITHROMYCIN 250 MG TABLET 500 MG PO (02:29)
[2025-01-31] MEDS: cefTRIAXone 1,000 MG in SODIUM CHLORIDE 0.9% (Popper) 50 ML 100 MG IV (02:44)
[2025-01-31 02:48] LABS: Troponin I 0.754 ng/mL (0.0-0.045)
--- NOTE | 2025-01-31 02:50 | PD.EDADDENDU ---
Emergency Room Addendum Addendum Narrative: Patient's troponin bennett from 0.1-0.7. Patient's pulmonary embolus is only subsegmental. It is unclear at this time whether or not the patient's rising troponin is due to the pulmonary embolism which would make it a submassive pulmonary embolism versus an acute coronary syndrome. Therefore, the patient will receive aspirin 325 mg p.o. and the heparin bolus and heparin drip will be continued.
--- NOTE | 2025-01-31 03:18 | ECHO_ITS ---
Patient Info Name: Kellie Hutchins Age: 54 years : 1970 Gender: Female Ht: 150 cm Wt: 60 kg BSA: 1.60 m2 BP: 98 / 54 mmHg HR: 82 bpm Exam Date: 02/01/2025 6:19 AM Admit Date: 01/31/2025 Site: [facility] Room Number: 250 Patient Status: I Technical Quality: Fair Exam Type: CA echo doppler complete Materials Mgmt Tech: Payton Lubin Ordering Physician: Lauri Roblero Study Info Indications NSTEMI and pulmonary embolism - Primary Location: S2SX Left Ventricular Outflow Tract Name Value Normal LVOT 2D LVOT Diameter 1.9 cm LVOT Doppler LVOT Peak Velocity 88 cm/s LVOT Mean Gradient 2 mmHg LVOT VTI 20 cm LVOT VTI/AV VTI Ratio 0.7 LVOT Stroke Volume 58 ml Pulmonic Valve Name Value Normal PV Doppler PV Peak Velocity 79 cm/s Mitral Valve Name Value Normal MV Doppler MV Mean Gradient 2 mmHg MV Decel [place] 669 cm/s2 MV PHT 39 ms MV Area (PHT) 5.7 cm2 4.0-5.0 MV Area (Cont Eq VTI) 1.8 cm2 MV Diastolic Function MV E Peak Velocity 90 cm/s MV A Peak Velocity 75 cm/s MV E/A 1.2 MV Annular TDI MV Septal e' Velocity 12.2 cm/s MV E/e' (Septal) 7.3 MV Lateral e' Velocity 14.0 cm/s MV E/e' (Lateral) 6.4 MV e' Average 13.10 cm/s MV E/e' (Average) 6.9 Tricuspid Valve Name Value Normal TV Regurgitation Doppler TR Peak Velocity 202 cm/s Estimated PAP/RSVP RA Pressure 3 mmHg <=5 PA Systolic Pressure 19 mmHg <36 RV Systolic Pressure 19 mmHg <36 Aortic Valve Name Value Normal AV 2D/MM AV Cusp Sep (MM) 1.4 cm AV Doppler AV Peak Velocity 143 cm/s AV Mean Gradient 4 mmHg AV VTI 29 cm AV Area (Cont Eq VTI) 2.0 cm2 >=3.0 AV Area (Cont Eq Glenn) 1.7 cm2 AV DI (Glenn) 0.62 AV Regurgitation 2D LVOT Area 2.8 cm2 Ventricles Name Value Normal LV Dimensions 2D/MM IVS Diastolic Thickness (2D) 0.7 cm 0.6-0.9 LVID Diastole (2D) 4.2 cm 3.8-5.2 LVIW Diastolic Thickness (2D) 0.7 cm 0.6-0.9 LVID Systole (2D) 2.8 cm 2.2-3.5 LVOT Diameter 1.9 cm LV Mass (2D Cubed) 85.07 g 67.00-162.00 LV Mass Index (2D Cubed) 53 g/m2 43-95 Relative Wall Thickness (2D) 0.33 <=0.42 IVS/LVIW Diastolic Thickness (2D) 1.00 0.00-1.50 LV Fractional Shortening/Ejection Fraction 2D/MM LV Fractional Shortening (2D) 33 % 27-45 LV EF (2D Teichholz) 62 % Atria Name Value Normal LA Dimensions LA Volume (4C A-L) 28 ml LA Volume (BP A-L) 28 ml Left Ventricle Left ventricular chamber dimension is normal. Left ventricular systolic function is normal with visually estimated ejection fraction of 60-65%. There is normal geometry noted in the left ventricle. Left ventricular segmental wall motion is normal. There is normal diastolic function in the left ventricle. Right Ventricle Right ventricular chamber dimension is normal. Right ventricular systolic function is normal. Left Atrium Left atrial chamber dimension is normal. Right Atrium Right atrial chamber dimension is normal. Aortic Valve The aortic valve is trileaflet. There is no aortic valve sclerosis. There is no aortic valve stenosis with a peak velocity of 143 cm/s, mean gradient of 4 mmHg, and aortic valve area of 2.0 cm2. There is no aortic valve regurgitation. Pulmonic Valve The pulmonic valve is normal. There is no pulmonic valve stenosis. There is no pulmonic regurgitation. Mitral Valve The mitral valve has normal leaflets. There is no mitral valve stenosis. There is trace mitral valve regurgitation. Tricuspid Valve The tricuspid valve leaflets are normal. There is no tricuspid valve stenosis. There is trace tricuspid valve regurgitation. No pulmonary hypertension, estimated pulmonary arterial systolic pressure is 19 mmHg and systemic blood pressure of 98 mmHg in systole. Pericardium/Pleural The pericardium appears normal. There is no pericardial effusion. No pleural effusion visualized. Inferior Vena Cava Normal inferior vena cava with >50% collapse upon inspiration consistent with normal right atrial pressure, 3 mmHg. Aorta The aortic measurements are indexed to age and body surface area. The aortic root at the sinus of Valsalva is not well visualized. The prox ascending aorta is not well visualized. Summary 1. Left ventricle size is normal and systolic function is normal. Estimated ejection fraction is 60-65%. There is normal diastolic function. 2. Right ventricle chamber size is normal and systolic function is normal. Estimated RVSP is 19 mmHg. 3. There is trace mitral and tricuspid valve regurgitation. Thickened anterior mitral valve. 4. Normal IVC with estimated RA pressure 3 mmHg. Report Signatures Finalized by Wes Wheat on 02/01/2025 12:00 PM
--- NOTE | 2025-01-31 03:25 | ESHP_ITS ---
<Statement entered by Parviz Millan DO - 01/31/25 06:16> Patient was seen and examined by me. After the review of the clinical data, I agree that the patient will need an admission on inpatient status for acute pulmonary embolism and troponin elevation. Plan of care discussed with patient who is in agreement. I Parviz Millan DO, attest that I was physically present for bustillo portions of evaluation, examined the patient, reviewed the labs and imaging, and discussed the plan of care and management with the IM residents team. I agree with the findings and plans documented above. 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 Patient was apparently normal 2 years ago and was diagnosed with stage IV metastatic adenocarcinoma of the lung for which she got radiation therapy, followed by targeted chemotherapy using Tagrisso since the time of diagnosis and is tolerating well. Reported that she had an episode of chest tightness when she went for regular walk and lasted for 30 minutes and resolved once she stopped walking and took some rest. Denies any other associated complaints at that time including palpitations, shortness of breath, diaphoresis, radiation of pain. Visited cancer center the following day and was later referred to our ED for further this complaints. EKG was done at that time that showed normal sinus rhythm with no ST and T wave changes. Routine labs are unremarkable except for mildly elevated troponin 0.097 following which is almost the same around 0.0107 and as the patient noted to have subsided chest pain, discharged home with oral levofloxacin. Chest x-ray done at that time are significant for cancer findings. CT head done at that time is negative for acute hemorrhage. On the day of admission, the patient is sitting on the bed around 9:30 PM and noted to have sudden onset chest tightness and discomfort, radiating to the left side of left arm and back pain. Denies palpitations, sweating, syncopal episode. Patient has baseline shortness of breath secondary to the lung cancer but not using any oxygen. Reported that there is no worsening of the shortness of breath from her baseline. After coming to the hospital 45 minutes later, noted that the chest pain is resolving. Denies fever, nausea, vomitings, burning micturition, cough, recent sick contacts. At baseline, patient is able to do her routine daily activities and not able to lift any heavy weights or do exertional activities since the diagnosis of lung cancer. Currently at her baseline. Is getting 3 monthly echocardiogram as she was on her chemotherapy and next echocardiogram was scheduled on of this month ED course: - Vitals at the time of admission are significant for blood pressure 133/78 mmHg - Labs at the time of admission are significant for hemoglobin 8.9, creatinine 1.2 -Troponin is 0.106 - EKG done at the time of admission showed normal sinus rhythm with no significant ST and T wave changes - Chest x-ray showed nodular density in the right mild lung which is from her cancer - Venous Doppler is negative for deep vein thrombosis. - CTA chest showed pulmonary emboli in the segmental branches of the right lobe pulmonary artery, right lower lobe lung nodule, dilated left atrium, small consolidations in the bilateral upper lobes. - Patient is admitted in the hospital for NSTEMI and pulmonary embolism Past medical history: Lung cancer, COVID infection, osteoarthritis Past surgical history: Bilateral breast implants and tummy tuck Family history: Significant for breast cancer in aunts, father had history of CAD at the age of 35 and at the age of 75 due to stroke Social history: Lives at home with her and kids, denies smoking, alcohol, other illicit drug abuse Allergies: NKDA Review of Systems Review of Systems Systems Reviewed: All systems reviewed, normal except as documented Exam Vital Signs Temp Pulse Resp BP Pulse Ox O2 Del Method 98 F 77 19 133/78 H 100 Room Air 01/31/25 01:49 01/31/25 01:49 01/31/25 01:49 01/31/25 01:49 01/31/25 01:49 01/31/25 01:49 Narrative Exam General: Awake. HEENT: Normocephalic, atraumatic, mucous membranes moist. Heart: Regular rate and rhythm, no murmurs. Lungs: Clear to auscultation with no wheezing or crackles. Abdomen: Soft, nondistended, nontender, positive bowel sounds. ?No guarding or rebound tenderness. Neurologic: Alert and oriented x3, no gross neurological deficit, and patient able to move all 4 extremities. Extremities: No edema. Skin: No rash or ecchymoses. Results: Labs 01/31/25 02:10 01/30/25 23:48 Labs: Short CBC 01/30/25 01/31/25 Range/Units 23:48 02:10 WBC 7.3 5.6 (3.6-11.0) Thou/mm3 Hgb 9.6 L 8.9 L (12.0-16.0) g/dL Hct 29.2 L 26.9 L (36.0-46.0) % Plt Count 190 D 185 (140-440) Thou/mm3 BMP 01/30/25 23:48 Sodium 142 Potassium 3.8 Chloride 105 Carbon Dioxide 25.7 BUN 17 Creatinine 1.2 Glucose 98 Calcium 9.6 Cardiac Enzymes 01/30/25 01/31/25 Range/Units 23:48 01:52 Troponin I 0.106 H* 0.754 H* D (0.0-0.045) ng/mL Liver Function 01/30/25 Range/Units 23:48 Total Bilirubin 0.5 (0.3-1.2) mg/dL AST 22 (0-34) U/L ALT 10 (10-49) U/L Alkaline Phosphatase 100 (46-116) U/L Albumin 4.8 (3.5-5.0) gm/dL Quality Measures Quality Measures none Medications Home Medications and Allergies Home Medications ?Medication ?Instructions ?Recorded ?Confirmed ?Type tramadol 50 mg tablet 50 mg PO PRN PRN Pain 01/31/25 History gabapentin 300 mg capsule 300 mg PO BID Numbness in carmona nds 01/31/25 01/31/25 History and feet osimertinib 80 mg tablet (Tagrisso) 80 mg PO DAILY Radha g cancer 01/31/25 01/31/25 History Allergies Allergy/AdvReac Type Severity Reaction Status Date / Time No Known Allergies Allergy Verified 01/30/25 22:48 Visit Medications Acetaminophen (Acetaminophen 325 Mg Tablet) 650 mg PO Q6H PRN PRN Reason: Fever >101.5 Stop: 03/02/25 03:17 Heparin Sodium/Dextrose (Heparin In D5w Ivpb) 25,000 unit in 250 mls @ 10.777 mls/hr IV .[id number] [facility]; Protocol Stop: 02/14/25 01:59 Morphine Sulfate (Morphine Sulf Inj 4 Mg/Ml Vial) 2 mg IVP Q4HR PRN PRN Reason: PAIN SCALE 7-10 (Severe Stop: 02/05/25 03:17 Ondansetron HCl (Ondansetron Inj 2 Mg/Ml Inj 2 Ml) 4 mg IVP Q6H PRN; Protocol PRN Reason: NAUSEA OR VOMITING Stop: 03/02/25 03:17 Oxycodone/Acetaminophen (Oxycodone/Apap 5/325 Tablet) 1 tab PO Q6H PRN PRN Reason: PAIN SCALE 4-6 (Moderate Stop: 02/05/25 03:17 Pantoprazole Sodium (Pantoprazole Inj 40 Mg Vial) 40 mg IVP QDAY ASHLEY Stop: 03/02/25 08:59 Sennosides (Senna Tablet) 1 tab PO QDAY PRN; Protocol PRN Reason: constipation Stop: 03/02/25 03:17 Discontinued Medications Aspirin (Aspirin 325 Mg Tablet) 325 mg PO X1 ONE Stop: 01/31/25 02:50 Azithromycin (Azithromycin 250 Mg Tablet) 500 mg PO X1 ONE Stop: 01/31/25 02:02 Last Admin: 01/31/25 02:29 Dose: 500 mg Heparin Sodium (Porcine) (Heparin Sod Inj 5000 Unit/Ml Vial) 4,800 unit 80 unit/kg (4800 unit) IV X1 ONE; Protocol Stop: 01/31/25 01:58 Ceftriaxone Sodium/Dextrose (Rocephin/D5w 1gm Iv Premix) 1 gm in 50 mls @ 100 mls/hr IV X1 ONE Stop: 01/31/25 02:30 Last Admin: 01/31/25 02:22 Dose: Not Given Ceftriaxone Sodium 1,000 mg/ (Sodium Chloride) 50 mls @ 100 mls/hr IV X1 ONE Stop: 01/31/25 02:55 Last Admin: 01/31/25 02:44 Dose: 100 mls/hr Assessment & Plan Plan A 54-year-old female with significant past medical history of 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 # Pulmonary embolism, Low Risk # Underlying Stage IV metastatic lung cancer - Presented to the hospital with chief complaints of chest discomfort and tightness - Prior history of lung cancer and is on treatment, had shortness of breath at baseline and reported no worsening or new onset cough - Vitals at the time of admission are significant for blood pressure 133/78 mmHg - Labs at the time of admission are significant for hemoglobin 8.9, creatinine 1.2 - Troponin is 0.106, which later uptrended to 0.754, BNP is 21 - EKG done at the time of admission showed normal sinus rhythm with no significant ST and T wave changes - Chest x-ray showed nodular density in the right mild lung which is from her cancer - Venous Doppler is negative for deep vein thrombosis. - CTA chest showed pulmonary emboli in the segmental branches of the right lobe pulmonary artery, right lower lobe lung nodule, dilated left atrium, small consolidations in the bilateral upper lobes. PESI score is 82 points, class II, low risk: 1.7 to 3.5% 30-day mortality rate Plan - Echocardiogram is ordered - Started on heparin drip - Consulted radar mechanic, Dr. Wheat - will appreciate his recommendations # NSTEMI type I versus type II - Came with complaints of chest tightness and discomfort along with back pain that lasted for 45 minutes at rest and subsided spontaneously after she came to the hospital. Associated with radiation of pain to the inner side of the left arm and no other associated complaints like shortness of breath, diaphoresis, palpitations, syncopal episodes - Had similar episode a week ago and came to the ED, noted to have elevated tropes at that time and discharged as the pain subsided spontaneously and without any EKG changes - EKG during this admission showed normal sinus rhythm with no ST and T wave changes - Initial troponin is 0.106 that later up trended to 0.754 - HEART score is 3, risk of mace of 0.9 to 1.7% - CONCHITA score is 0, Aurea score is 81 points, 2% probability of in 6 months Plan - Started on heparin drip - Ordered echocardiogram, lipid panel, TSH - Consulted radar mechanic, Dr. Wheat # Stage IV metastatic adenocarcinoma of liver - Following Dr. Benavides on outpatient basis - Using Tagrisso and gabapentin, tramadol as needed for pain - Recent PET/CT done on 12/30/2024 showed adrenal mass and Dr. Caldwell recommended biopsy per patient Plan - Will resume her home medications Hospital Maintenance: Dispo:Tele DVT ppx: Heparin drip GI ppx: [place]op Diet: NPO IV lines: Peripheral Code status: Full Patient plan of care was discussed with the attending physician, Dr. Yana Roblero, PGY2
[2025-01-31 03:40] LABS: Cardiac Risk Estimate 6.2 RATIO (3.7-5.6); Cholesterol 412 mg/dL (132-200); HDL Cholesterol 66 mg/dL (40-60); LDL Cholesterol,Calculated 322 mg/dL (0-130); Triglycerides 118 mg/dL (30-150)
[2025-01-31] MEDS: HEPARIN SOD INJ 5000 UNIT/ML VIAL 4800 UNIT IV (03:42)
[2025-01-31] MEDS: Heparin/D5w 25K 250 ML Ivpb 25,000 UNIT/250 ML BAG 10.777 UNIT IV (03:43)
--- NOTE | 2025-01-31 06:06 | EKG_ITS ---
[facility] Test Date: 2025-01-31 Pat Name: CHAD ROMAN Department: Room: [address] Gender: Female Care Worker: TAMY : 1970 Requested By: Lauri Roblero Order Number: [id number] Reading MD: Lauri Roblero Measurements Intervals [place] Rate: 80 P: 55 UT: 131 QRS: 36 QRSD: 77 T: -10 QT: 390 QTc: 451 Interpretive Statements SINUS RHYTHM LOW QRS VOLTAGE IN PRECORDIAL LEADS Compared to ECG 01/30/2025 23:00:51 No significant changes /store/S0/[id number]
[2025-01-31 06:15] LABS: Basophils # (Auto) 0.0 Thou/mm3 (0.0-0.2); Basophils % (Auto) 1 % (0-2.5); Eosinophils # (Auto) 0.1 Thou/mm3 (0.0-0.5); Eosinophils % (Auto) 3 % (0-10); Hematocrit 26.4 % (36.0-46.0); Hemoglobin 9.2 g/dL (12.0-16.0); Immature Granulocytes Auto 0.02 Thou/mm3 (0.00-0.00); Lymphocytes # (Auto) 2.5 Thou/mm3 (1.0-4.8); Lymphocytes % (Auto) 45 % (10-50); Mean Corpuscular HGB Conc 34.8 g/dl (31.0-37.0); Mean Corpuscular Hemoglobin 30.8 pg (25.0-35.0); Mean Corpuscular Volume 88 fL (80-100); Monocytes # (Auto) 0.5 Thou/mm3 (0.0-0.8); Monocytes % (Auto) 8 % (0-12); Neutrophils # (Auto) 2.4 Thou/mm3 (1.8-7.7); Neutrophils % (Auto) 43 % (37-80); Nucleated Red Blood Cell # 0.00 Thou/mm3 (0.00-0.00); Nucleated Red Blood Cell % 0 /100 WBC (0); Platelet Count 191 Thou/mm3 (140-440); RDW Standard Deviation 44.6 fL (36.4-46.3); Red Blood Count 2.99 Miln/mm3 (4.00-5.20); White Blood Count 5.6 Thou/mm3 (3.6-11.0)
--- NOTE | 2025-01-31 08:09 | PC.CC ---
Patient is a 54 year-old female who presents to the hospital for chest tightness. GENERAL AGENTMerline made [id number] contact with patient introduced self, role, and reason for visit. Patient appeared alert and oriented to self, location, and situation. GENERAL AGENT, discussed limits of confidentiality. Patient made appropriate eye contact and engaged in initial assessment. ? Patient confirmed information on demographics and reports to living at home with her Fred Hutchins . Per patient, in the event she is unable to make her own medical decisions her medical decision maker is her . Patient is able to ambulate independently; however, every once in a while she uses a cane. Patient is able to complete her own ADLs. Her primary provider is Shaila Read and she uses [facility] for pharmacy needs. Patient does not require no other DME and does not receive dialysis. Upon discharge patient plans to return back home. social services director to follow up upon discharge.
[2025-01-31 08:37] LABS: Alanine Aminotransferase 10 U/L (10-49); Albumin, Serum 4.2 gm/dL (3.5-5.0); Albumin/Globulin Ratio 1.7 (1.2-2.2); Alkaline Phosphatase 88 U/L (46-116); Anion Gap 12 (7-16); Aspartate Amino Transferase 28 U/L (0-34); BUN/Creatinine Ratio 11 Ratio (12-20); Bilirubin,Total 0.5 mg/dL (0.3-1.2); Blood Urea Nitrogen 12 mg/dL (9-23); Calcium 9.4 mg/dL (8.3-10.6); Calcium (Corrected) 9.4 mg/dL (8.5-10.1); Carbon Dioxide 24.4 mMol/L (20.0-31.0); Chloride 106 mMol/L (98-107); Creatinine (Component) 1.1 mg/dL (0.6-1.3); Estimated Creatinine Clearance 47.1 mL/min (>60); Globulin 2.5 gm/dL (2.3-3.5); Glucose 105 mg/dL (74-106); Osmolality,Calculated 282 (275-295); Potassium 3.8 mMol/L (3.4-5.1); Sodium 142 mMol/L (136-145); Total Protein 6.7 gm/dL (5.7-8.2); eGFR > 60 See Note
[2025-01-31 08:42] LABS: Troponin I 3.116 ng/mL (0.0-0.045)
[2025-01-31 09:13] LABS: Glucose Estimated Average 108 mg/dL (80-131); Hemoglobin A1C 5.4 % Hgb (4.8-6.0)
[2025-01-31] MEDS: GABAPENTIN 300 MG CAPSULE PO ×2 (09:34→20:30)
[2025-01-31 12:03] LABS: Partial Thromboplastin Time > 139.0 Seconds (22.0-36.0)
[2025-01-31 12:06] LABS: Magnesium 1.8 mg/dL (1.6-2.6)
--- NOTE | 2025-01-31 12:32 | PD.RESCONSUL ---
HPI Data of Consult Requesting Physician: Alem Palencia DO Admitting Provider: Parviz Millan DO Attending Provider: Alem Palencia DO Primary Care Provider: Shaila Read MD Consult Narrative Reason for consult: Chest pain. History of present illness: Ms. 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 Patient reported that she had an episode of retrosternal chest pain 9/10 severity radiating to her left side and jaw yesterday night around 9:30 PM, she denies any associated nausea/vomiting/palpitations/syncope. Patient also reported similar episode of chest tightness/pain when she went for her regular walk, reported that she reached out to her oncologist who recommended that she goes to the emergency department for further evaluation. Patient otherwise denies any shortness of breath, palpitations, syncope, presyncope, falls and dizziness. ED course: Vitals on presentation blood pressure 133/78, heart rate 93, respiratory 18, temp 98.4, O2 sat 100 on room air. ED labs pertinent for hemoglobin 8.2, platelet 185, WBC 5.6 coags show INR 1.0, CMP showed potassium 3.8, sodium 142, chloride 105, bicarb 25.7, anion gap 11, BUN 17, creatinine 1.2, glucose 98, lactate 1.5, calcium 9.6, AST ALT within normal limits, alk phos normal. Troponin 0.106. BNP 21. Lipid panel shows triglyceride 118, cholesterol 412, LDL 322, HDL 66, Pro-Jake negative EKG in ED on presentation shows sinus rhythm, T wave inversion noted in lead V3?V6, lead II, III and aVF. Chest x-ray shows mild atelectasis right lung base, nodular density in right midlung. CTA chest shows positive small right lower lobe pulmonary artery emboli, mild pneumonia, 18 mm pulmonary nodule with spiculated margins in the right lower lobe, metastatic solid left adrenal mass, periaortic lymphadenopathy. Cardiology consulted in setting of pulmonary embolism and cardiac chest pain. 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 4 kids Family History: Positive for CABG in father at 35, from stroke. No heart disease in siblings/uncle cc:: cc: Alem Palencia DO Review of Systems Review of Systems Systems Reviewed: All systems reviewed, normal except as documented Exam Vital Signs Temp Pulse Resp BP Pulse Ox O2 Del Method 98.5 F 85 16 120/80 98 Room Air 01/31/25 09:25 01/31/25 09:25 01/31/25 09:25 01/31/25 09:25 01/31/25 09:25 01/31/25 09:25 Narrative Exam Physical Exam General: Awake and in no acute distress. Conversational and non-toxic appearing. HEENT: Normocephalic, atraumatic, extraocular movements intact, pupils equal and reactive to light. No JVD or bruits. Heart: Regular rate and rhythm, no murmurs, rubs or gallops. Lungs: Clear to auscultation with no wheezing or crackles bilaterally. Non-labored respirations, symmetric chest rise, no use of accessory muscles. Abdomen: Soft, nondistended, nontender. No guarding or rebound tenderness. Neurologic: Alert and oriented x3, no gross neurological deficit, and patient able to move all 4 extremities. Extremities: No edema, clubbing or cyanosis. No joint deformity. Skin: Warm and dry without rashes. Psychiatric: Cooperative, appropriate mood and affect. Results Labs 02/01/25 04:25 02/01/25 11:00 Labs: Short CBC 01/30/25 01/31/25 01/31/25 Range/Units 23:48 02:10 05:40 WBC 7.3 5.6 5.6 (3.6-11.0) Thou/mm3 Hgb 9.6 L 8.9 L 9.2 L (12.0-16.0) g/dL Hct 29.2 L 26.9 L 26.4 L (36.0-46.0) % Plt Count 190 D 185 191 (140-440) Thou/mm3 BMP 01/30/25 01/31/25 23:48 05:40 Sodium 142 142 Potassium 3.8 3.8 Chloride 105 106 Carbon Dioxide 25.7 24.4 BUN 17 12 Creatinine 1.2 1.1 Glucose 98 105 Calcium 9.6 9.4 Cardiac Enzymes 01/30/25 01/31/25 01/31/25 Range/Units 23:48 01:52 05:40 Troponin I 0.106 H* 0.754 H* D 3.116 H* D (0.0-0.045) ng/mL Liver Function 01/30/25 01/31/25 Range/Units 23:48 05:40 Total Bilirubin 0.5 0.5 (0.3-1.2) mg/dL AST 22 28 (0-34) U/L ALT 10 10 (10-49) U/L Alkaline Phosphatase 100 88 (46-116) U/L Albumin 4.8 4.2 D (3.5-5.0) gm/dL Quality Measures Quality Measures none Medications Home Medications and Allergies Home Medications ?Medication ?Instructions ?Recorded ?Confirmed ?Type tramadol 50 mg tablet 50 mg PO PRN PRN Pain 05/09/22 01/31/25 History gabapentin 300 mg capsule 300 mg PO BID Numbness in hands 01/31/25 01/31/25 History and feet osimertinib 80 mg tablet (Tagrisso) 80 mg PO DAILY Lung cancer 01/31/25 01/31/25 History Allergies Allergy/AdvReac Type Severity Reaction Status Date / Time No Known Allergies Allergy Verified 01/30/25 22:48 Visit Medications Acetaminophen (Acetaminophen 325 Mg Tablet) 650 mg PO Q6H PRN PRN Reason: Fever >101.5 Stop: 03/02/25 03:17 Aspirin (Aspirin Ec 81 Mg Tabec) 81 mg PO QDAY [facility] Stop: 03/03/25 08:59 Atorvastatin Calcium (Atorvastatin Calcium 20 Mg Tablet) 80 mg PO HS [facility] Stop: 03/02/25 20:59 Gabapentin (Gabapentin 300 Mg Capsule) 300 mg PO BID A[facility]LEY Stop: 03/02/25 08:59 Last Admin: 01/31/25 09:34 Dose: 300 mg Heparin Sodium/Dextrose (Heparin In D5w Ivpb) 25,000 unit in 250 mls @ 10.777 mls/hr IV .[id number] [facility]; Protocol Stop: 02/14/25 01:59 Last Titration: 01/31/25 12:04 Dose: 0 units/kg/hr, 0 mls/hr Magnesium Sulfate (Magnesium Sulfate Ivpb) 4 gm in 50 mls @ 12.5 mls/hr IV X1 ONE Stop: 01/31/25 16:25 Morphine Sulfate (Morphine Sulf Inj 4 Mg/Ml Vial) 2 mg IVP Q4HR PRN PRN Reason: BREAKTHROUGH PAIN Stop: 02/05/25 03:17 Ondansetron HCl (Ondansetron Inj 2 Mg/Ml Inj 2 Ml) 4 mg IVP Q6H PRN; Protocol PRN Reason: NAUSEA OR VOMITING Stop: 03/02/25 03:17 Oxycodone/Acetaminophen (Oxycodone/Apap 5/325 Tablet) 1 tab PO Q6H PRN PRN Reason: PAIN SCALE 4-6 (Moderate Stop: 02/05/25 03:17 Pantoprazole Sodium (Pantoprazole Inj 40 Mg Vial) 40 mg IVP QDAY [facility] Stop: 03/02/25 08:59 Last Admin: 01/31/25 09:34 Dose: 40 mg Sennosides (Senna Tablet) 1 tab PO QDAY PRN; Protocol PRN Reason: constipation Stop: 03/02/25 03:17 Tramadol HCl (Tramadol Hcl 50 Mg Tablet) 50 mg PO Q6HR PRN PRN Reason: Pain 7-10 Stop: 02/05/25 06:01 Discontinued Medications Aspirin (Aspirin 325 Mg Tablet) 325 mg PO X1 ONE Stop: 01/31/25 02:50 Last Admin: 01/31/25 03:53 Dose: 325 mg Atorvastatin Calcium (Atorvastatin Calcium 20 Mg Tablet) 40 mg PO HS [facility] Stop: 03/02/25 20:59 Atorvastatin Calcium (Atorvastatin Calcium 10 Mg Tablet) 80 mg PO X1 ONE Stop: 01/31/25 06:05 Last Admin: 01/31/25 06:50 Dose: Not Given Azithromycin (Azithromycin 250 Mg Tablet) 500 mg PO X1 ONE Stop: 01/31/25 02:02 Last Admin: 01/31/25 02:29 Dose: 500 mg Heparin Sodium (Porcine) (Heparin Sod Inj 5000 Unit/Ml Vial) 4,800 unit 80 unit/kg (4800 unit) IV X1 ONE; Protocol Stop: 01/31/25 01:58 Last Admin: 01/31/25 03:42 Dose: 4,800 unit Ceftriaxone Sodium/Dextrose (Rocephin/D5w 1gm Iv Premix) 1 gm in 50 mls @ 100 mls/hr IV X1 ONE Stop: 01/31/25 02:30 Last Admin: 01/31/25 02:22 Dose: Not Given Ceftriaxone Sodium 1,000 mg/ (Sodium Chloride) 50 mls @ 100 mls/hr IV X1 ONE Stop: 01/31/25 02:55 Last Infusion: 01/31/25 03:14 Dose: Infused Morphine Sulfate (Morphine Sulf Inj 4 Mg/Ml Vial) 2 mg IVP Q4HR PRN PRN Reason: PAIN SCALE 7-10 (Severe Stop: 02/05/25 03:17 Non-Formulary Medication (Osimertinib [Tagrisso]) 80 mg PO DAILY ASHLEY; Protocol Stop: 03/02/25 08:59 Last Admin: 01/31/25 11:52 Dose: Not Given Potassium Chloride (Potassium Chloride 20 Meq Tabcr) 40 meq PO X1 ONE Stop: 01/31/25 10:15 Last Admin: 01/31/25 11:39 Dose: 40 meq Assessment & Plan Plan Assessment and plan: Summary: Ms. 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 Patient admitted for further workup for cardiac chest pain, CTA positive for small right lower lobe pulmonary artery emboli and cardiology consulted for management. #ACS workup #NSTEMI type I versus type II, most likely type I Patient had multiple episodes of left-sided chest pain retrosternal 9/10 severity radiating to left side of jaw. Has associated chest pain/pressure with activity and eventually started last night at rest. Patient denies any recent stressors. Patient does have history of lung cancer however has good prognosis per oncologist, per patient she has good prognosis for 3 to 5 years. EKG in ED on presentation shows sinus rhythm, T wave inversion noted lead V3?V6, lead II, III and aVF. Troponin on presentation 0.106-> 0.754-> 3.116-> 5.896 CAD risk factors: Family history of CAD, dyslipidemia Aurea ACS risk and mortality calculator: 81 points, 2% probability of from admission to 6 months CONCHITA score for UA/NSTEMI 3 points, 13% risk at 14 days of all-cause mortality, new or recurrent NV or severe recurrent ischemia requiring urgent vascularization Heart score for Major Cardiac events: 6 points, moderate score, risk of mace 12 to 16.6% Hemoglobin A1c 5.4, TSH 1.45, cholesterol 412, LDL 322, HDL 66 Recommendations: -Aspirin 81 mg daily -Continue heparin drip -Obtain echocardiogram to rule out regional wall abnormalities -Will plan for cardiac catheterization on Sunday a.m., keep n.p.o. after midnight on Sunday -Continue atorvastatin 80 mg at bedtime -Consider low-dose beta-john/DARLING/ARB if blood pressure permissible. -No need to trend troponin, monitor for chest pain #Low risk right lower lobe pulmonary embolism Patient presented with chest pain, CTA on admission shows very small right lower lobar segmental pulmonary artery emboli. PESI score: 82 points, class II low risk: 1.7-3.5% 30-day mortality BNP 21 on presentation, venous Doppler 01/29/2025 negative for DVT Patient saturating well on room air, troponin elevation likely in setting of NSTEMI Patient does have a history of stage IV metastatic lung cancer. -Continue heparin drip -Obtain echocardiogram to rule out right heart strain - Will transition to Eliquis after cardiac catheterization #Hyperlipidemia cholesterol 412, LDL 322, HDL 66 - Continue atorvastatin 80 mg at bedtime -consider familial hyperlipidemia, further workup outpatient #Stage IV non-small cell cancer of right lung with metastasis to bone and right adrenal #Chronic pain, by history #History of radiation pneumonitis Management as per primary team Thank you for the consult and allowing to participate in the care of the patient. Cardiology will continue to follow. Case discussed with Attending Physician Dr. Wes Gordillo MD Internal Medicine PGY-2 Disclaimer: This note was dictated by speech recognition. Minor errors in manager managing may be present due to voice recognition software. Attending Provider Attestation/Addendum I have personally seen and examined the patient separately on the above date of service and discussed the plan of care with the resident. I reviewed the resident Dr. Martita Gordillo consultation progress note and agree with the resident findings and plan in the note above and have also edited the documentation to reflect my findings and plan. Patient presented with significant chest pain and chest pressure 9/10 in intensity on the left side more concerning for ACS given the nonspecific ST-T changes with T wave inversions in leads II, 3, aVF, V3-V6. Patient does have significant family history of heart disease with father having heart attack at the age of 35 from 40 with bypass surgery and has other risk factors of hypertension, significant hyperlipidemia with LDL of 322.. Troponins were elevated at 0.106 and continued to rise at 0.7 and then 3.1. As mentioned above question mostly has NSTEMI type I and will need left heart cardiac catheterization to rule out any kind of acute coronary syndrome. Patient explained the risk and face and alternatives of performing a left heart cardiac catheterization including the risk of bleeding, heart attack, stroke and in detail. Patient agreeable for the procedure and plan for Sunday morning and will keep the patient n.p.o. after Sunday night. Continue heparin drip, aspirin 305 mg times once and and aspirin 81 mg once daily, high intensity statin Crestor 40 mg once daily, fenofibrate and beta-john blood pressure is permissible. Patient also has a small left lower lobe subsegmental PE and that was dictated by the radiologist. Patient started heparin drip for the NSTEMI and will continue the same and given she to can be transition to Eliquis after confirming with the radiologist regarding the PE. PE appears to be incidental finding and is not the cause for the elevated troponins. Wes Wheat M.D. Interventional Cardiology
[2025-01-31] MEDS: Magnesium Sulfate 4 GM Ivpb 4 GM/50 ML BAG IV (12:44)
--- NOTE | 2025-01-31 13:33 | ESPR_ITS ---
Documentation for date of: 01/31/25 Subjective Subjective Interval history: Patient was seen at the bedside this morning and currently reports no active symptoms. She presented with chest and back pain that began around 9:30 PM last night, described as constant and squeezing in nature, with radiation to the left arm, right jaw, and posterior head. Her chest pain has improved since arrival to the ED. She denies shortness of breath, fevers, or chills. The patient was previously evaluated in the ED on 01/22 for similar symptoms. She reports a family history significant for myocardial infarction in her father at age 35. Tagrisso is currently being held given its potential immunosuppressive effects, will resume in a few days. The patient received antibiotics in the ED for possible pneumonia. However, she is asymptomatic, without leukocytosis or fever, and chest X-ray shows no evidence of pneumonia. The patient was counseled that she will likely require lifelong anticoagulation due to her pulmonary embolism and increased thrombotic risk in the setting of lung cancer. Currently on heparin drip. Cardiology has been consulted. Exam Vital Signs Temp Pulse Resp BP Pulse Ox O2 Del Method 98.5 F 85 16 135/60 H 98 Room Air 01/31/25 12:00 01/31/25 12:00 01/31/25 12:00 01/31/25 12:00 01/31/25 12:00 01/31/25 12:00 Narrative Exam Physical Exam General: Awake and in no acute distress. Conversational and non-toxic appearing. HEENT: Normocephalic, atraumatic, extraocular movements intact, pupils equal and reactive to light. No JVD or bruits. Heart: Regular rate and rhythm, no murmurs, rubs or gallops. Lungs: Clear to auscultation with no wheezing or crackles bilaterally. Non- labored respirations, symmetric chest rise, no use of accessory muscles. Abdomen: Soft, nondistended, nontender. No guarding or rebound tenderness. Neurologic: Alert and oriented x3, no gross neurological deficit, and patient able to move all 4 extremities. Extremities: No edema, clubbing or cyanosis. No joint deformity. Skin: Warm and dry without rashes. Psychiatric: Cooperative, appropriate mood and affect. Objective Labs 01/31/25 05:40 01/31/25 05:40 Labs: Laboratory Results - last 24 hr 01/30/25 01/31/25 01/31/25 23:48 01:52 02:10 WBC 7.3 5.6 RBC 3.24 L 2.99 L Hgb 9.6 L 8.9 L Hct 29.2 L 26.9 L MCV 90 90 MCH 29.6 29.8 MCHC 32.9 33.1 RDW Std Deviation 45.8 45.8 Plt Count 190 D 185 Neut % (Auto) 56 52 Lymph % (Auto) 33 37 [place] % (Auto) 9 8 Eos % (Auto) 2 2 Baso % (Auto) 1 1 Neut # (Auto) 4.1 2.9 Lymph # (Auto) 2.4 2.1 [place] # (Auto) 0.6 0.5 Eos # (Auto) 0.1 0.1 Baso # (Auto) 0.0 0.0 Immature Gran # (Auto) 0.02 H 0.01 H Absolute Nucleated RBC 0.00 0.00 Immature Gran % 0 0 Nucleated RBC % 0 0 APTT 21.4 L Sodium 142 Potassium 3.8 Chloride 105 Carbon Dioxide 25.7 Anion Gap 11 BUN 17 Creatinine 1.2 Estim Creat Clear Calc 43.2 L eGFR 54 L BUN/Creatinine Ratio [address] Glu mg/dL Hemoglobin A1c Calculated Osmolality 284 Lactic Acid 1.5 Calcium 9.6 Corrected Calcium 9.6 Magnesium Total Bilirubin 0.5 AST 22 ALT 10 Alkaline Phosphatase 100 Troponin I 0.106 H* 0.754 H* D B-Natriuretic Peptide 21 Total Protein 7.2 Albumin 4.8 Globulin 2.4 Albumin/Globulin Ratio 2.0 Triglycerides 118 Cholesterol 412 H LDL Cholesterol, Calc 322 H HDL Cholesterol 66 H Cholesterol/HDL Ratio 6.2 H Procalcitonin < 0.04 01/31/25 01/31/25 05:40 10:50 WBC 5.6 RBC 2.99 L Hgb 9.2 L Hct 26.4 L MCV 88 MCH 30.8 MCHC 34.8 RDW Std Deviation 44.6 Plt Count 191 Neut % (Auto) 43 Lymph % (Auto) 45 [place] % (Auto) 8 Eos % (Auto) 3 Baso % (Auto) 1 Neut # (Auto) 2.4 Lymph # (Auto) 2.5 [place] # (Auto) 0.5 Eos # (Auto) 0.1 Baso # (Auto) 0.0 Immature Gran # (Auto) 0.02 H Absolute Nucleated RBC 0.00 Immature Gran % 0 Nucleated RBC % 0 APTT > 139.0 H* D Sodium 142 Potassium 3.8 Chloride 106 Carbon Dioxide 24.4 Anion Gap 12 BUN 12 Creatinine 1.1 Estim Creat Clear Calc 47.1 L eGFR > 60 BUN/Creatinine Ratio 11 L Glucose [address] Glu mg/dL 108 Hemoglobin A1c 5.4 Calculated Osmolality 282 Lactic Acid Calcium 9.4 Corrected Calcium 9.4 Magnesium 1.8 Total Bilirubin 0.5 AST 28 ALT 10 Alkaline Phosphatase 88 Troponin I 3.116 H* D B-Natriuretic Peptide Total Protein 6.7 Albumin 4.2 D Globulin 2.5 Albumin/Globulin Ratio 1.7 Triglycerides Cholesterol LDL Cholesterol, Calc HDL Cholesterol Cholesterol/HDL Ratio Procalcitonin Quality Measures Quality Measures none Assessment & Plan Assessment Current Active Medications: Generic Name Dose Route Start Last Admin Trade Name Freq PRN Reason Stop Dose Admin Acetaminophen 650 mg 01/31/25 03:18 Acetaminophen 325 Mg Tablet PO 03/02/25 03:17 Q6H PRN Fever >101.5 Aspirin 81 mg 02/01/25 09:00 Aspirin Ec 81 Mg Tabec PO 03/03/25 08:59 QDAY ASHLEY Atorvastatin Calcium 80 mg 01/31/25 21:00 Atorvastatin Calcium 20 Mg Tablet PO 03/02/25 20:59 HS ASHLEY Gabapentin 300 mg 01/31/25 09:00 01/31/25 09:34 Gabapentin 300 Mg Capsule PO 03/02/25 08:59 300 mg BID ASHLEY Administration Heparin Sodium/Dextrose 25,000 unit in 250 mls @ 10.777 mls/hr 01/31/25 02:00 01/31/25 13:10 Heparin In D5w Ivpb IV 02/14/25 01:59 15 units/kg/hr .[id number] ASHLEY 8.981 mls/hr Protocol Titration 18 UNITS/KG/HR Magnesium Sulfate 4 gm in 50 mls @ 12.5 mls/hr 01/31/25 12:26 01/31/25 12:44 Magnesium Sulfate Ivpb IV 01/31/25 16:25 12.5 mls/hr X1 ONE Administration Morphine Sulfate 2 mg 01/31/25 09:31 Morphine Sulf Inj 4 Mg/Ml Vial IVP 02/05/25 03:17 Q4HR PRN BREAKTHROUGH PAIN Ondansetron HCl 4 mg 01/31/25 03:18 Ondansetron Inj 2 Mg/Ml Inj 2 Ml IVP 03/02/25 03:17 Q6H PRN NAUSEA OR VOMITING Protocol Oxycodone/Acetaminophen 1 tab 01/31/25 03:18 Oxycodone/Apap 5/325 Tablet PO 02/05/25 03:17 Q6H PRN PAIN SCALE 4-6 (Moderate Pantoprazole Sodium 40 mg 01/31/25 09:00 01/31/25 09:34 Pantoprazole Inj 40 Mg Vial IVP 03/02/25 08:59 40 mg QDAY ASHLEY Administration Sennosides 1 tab 01/31/25 03:18 Senna Tablet PO 03/02/25 03:17 QDAY PRN constipation Protocol Tramadol HCl 50 mg 01/31/25 06:02 Tramadol Hcl 50 Mg Tablet PO 02/05/25 06:01 Q6HR PRN Pain 7-10 Plan A 54-year-old female with significant past medical history of stage IV right lung adenocarcinoma metastatic to bones with recent metastasis to adrenal gland presented to the hospital with chief complaints of chest tightness, admitted for pulmonary emboli and elevated troponins. # Pulmonary embolism, Low Risk # Underlying Stage IV metastatic lung cancer - Presented to the hospital with chief complaints of chest discomfort and tightness. - Prior history of lung cancer and is on treatment, had shortness of breath at baseline and reported no worsening or new onset cough. - Vitals at the time of admission are significant for blood pressure 133/78 mmHg. - Labs at the time of admission are significant for hemoglobin 8.9, creatinine 1.2. - Troponin is 0.106, which later uptrended to 0.754, BNP is 21. - EKG done at the time of admission showed normal sinus rhythm with no significant ST and T wave changes. - Chest x-ray showed nodular density in the right mild lung which is from her cancer. - Venous Doppler is negative for deep vein thrombosis.. - CTA chest showed pulmonary emboli in the segmental branches of the right lobe pulmonary artery, right lower lobe lung nodule, dilated left atrium, small consolidations in the bilateral upper lobes. - PESI score is 82 points, class II, low risk: 1.7 to 3.5% 30-day mortality rate Plan * Echocardiogram is ordered. * Continue heparin drip. * Consulted oil derrick operator, Dr. Wheat - will appreciate his recommendations. #NSTEMI type I versus type II #Hyperlipidemia - Came with complaints of chest tightness and discomfort along with back pain that lasted for 45 minutes at rest and subsided spontaneously after she came to the hospital. - Associated with radiation of pain to the inner side of the left arm, right jaw and posterior head. - No other associated complaints like shortness of breath, diaphoresis, palpitations, syncopal episodes. - Had similar episode a week ago and came to the ED, noted to have elevated troponins at that time and discharged as the pain subsided spontaneously and without any EKG changes. - EKG during this admission showed normal sinus rhythm with no ST and T wave changes. - Initial troponin is 0.106 that later up trended to 0.754, then to 3.116. - HEART score is 3, risk of mace of 0.9 to 1.7%. - CONCHITA score is 0, Aurea score is 81 points, 2% probability of in 6 months. - Lipid panel: Cholesterol 412, LDL 322, HDL 66. Plan: * Started on heparin drip. * Ordered echocardiogram, TSH. * Consulted oil derrick operator, Dr. Wheat. # Stage IV metastatic adenocarcinoma of liver - Following Dr. Caldwell on outpatient basis. - Using Tagrisso and gabapentin, tramadol as needed for pain. - Recent PET/CT done on 12/30/[address] showed [address] mass and Dr. Caldwell recommended biopsy per patient. Plan * Tagrisso held for now. Hospital Maintenance: Dispo: Tele DVT ppx: Heparin drip GI ppx: Pantop Diet: NPO IV lines: Peripheral Code status: Full --- Patient plan of care was discussed with attending physician, Dr. Palencia . Lluvia Diana DO PGY-1 Attending Provider Attestation/Addendum Alem Martin DO, attest that I was physically present for the bustillo portions of the service and evaluated the patient with the resident and I reviewed and discussed the case with the resident and agree with the resident's findings and plans of care as documented above Patient seen and evaluated this AM. She states she had pressure like chest pain that had radiated to her back yesterday. She denied any associated shortness of breath or diaphoresis. Patient states her father had history of DE at the age of 35. She denies any previous episodes of chest pain in the past. Patient is currently on heparin drip for both PE and NSTEMI. She states she is chest pain free at this time. Troponin is 3.116. EKG was repeated and does not show any acute ST or T wave changes. Due to concern for possible pneumonia and postobstructive pneumonia, will add IV zosyn. there is some atelectasis noted in b/l lung bases. Will hold immunotherapy at this time due to acute illness/ infection. Will f/u with cardiology recommendations.
[2025-01-31] MEDS: PIPER/TAZO 3.375 GM PREMIX 3.375 GM/50 ML BAG IV ×2 (16:27→20:30)
[2025-01-31 18:08] LABS: Troponin I 5.896 ng/mL (0.0-0.045)
[2025-01-31] MEDS: ATORVASTATIN CALCIUM 20 MG TABLET 80 MG PO (20:30)
[2025-01-31 20:34] LABS: Partial Thromboplastin Time 111.5 Seconds (22.0-36.0)
[2025-02-01] VITALS (15 sets, daily range): BP systolic 81–116; BP diastolic 47–62; PULSE 82–105; RESP 12–22; TEMP 36.2–37; O2SAT 91–100; BMI 26.6
[2025-02-01] MEDS: RINGERS LACTATED 500 ML 500 ML 999 ML IV (04:45)
[2025-02-01] MEDS: PIPER/TAZO 3.375 GM PREMIX 3.375 GM/50 ML BAG IV ×3 (05:17→21:36)
[2025-02-01 06:19] LABS: Basophils # (Auto) 0.0 Thou/mm3 (0.0-0.2); Basophils % (Auto) 1 % (0-2.5); Eosinophils # (Auto) 0.2 Thou/mm3 (0.0-0.5); Eosinophils % (Auto) 3 % (0-10); Hematocrit 29.8 % (36.0-46.0); Hemoglobin 10.1 g/dL (12.0-16.0); Immature Granulocytes Auto 0.01 Thou/mm3 (0.00-0.00); Lymphocytes # (Auto) 2.0 Thou/mm3 (1.0-4.8); Lymphocytes % (Auto) 35 % (10-50); Mean Corpuscular HGB Conc 33.9 g/dl (31.0-37.0); Mean Corpuscular Hemoglobin 30.3 pg (25.0-35.0); Mean Corpuscular Volume 90 fL (80-100); Monocytes # (Auto) 0.6 Thou/mm3 (0.0-0.8); Monocytes % (Auto) 10 % (0-12); Neutrophils # (Auto) 3.0 Thou/mm3 (1.8-7.7); Neutrophils % (Auto) 51 % (37-80); Nucleated Red Blood Cell # 0.00 Thou/mm3 (0.00-0.00); Nucleated Red Blood Cell % 0 /100 WBC (0); Platelet Count 215 Thou/mm3 (140-440); RDW Standard Deviation 46.8 fL (36.4-46.3); Red Blood Count 3.33 Miln/mm3 (4.00-5.20); White Blood Count 5.8 Thou/mm3 (3.6-11.0)
[2025-02-01 06:46] LABS: Alanine Aminotransferase 13 U/L (10-49); Albumin, Serum 4.2 gm/dL (3.5-5.0); Albumin/Globulin Ratio 1.4 (1.2-2.2); Alkaline Phosphatase 100 U/L (46-116); Anion Gap 11 (7-16); Aspartate Amino Transferase 37 U/L (0-34); BUN/Creatinine Ratio 11 Ratio (12-20); Bilirubin,Total 0.8 mg/dL (0.3-1.2); Blood Urea Nitrogen 15 mg/dL (9-23); Calcium 9.5 mg/dL (8.3-10.6); Calcium (Corrected) 9.5 mg/dL (8.5-10.1); Carbon Dioxide 26.0 mMol/L (20.0-31.0); Chloride 104 mMol/L (98-107); Creatinine (Component) 1.4 mg/dL (0.6-1.3); Estimated Creatinine Clearance 37.0 mL/min (>60); Globulin 3.0 gm/dL (2.3-3.5); Glucose 90 mg/dL (74-106); Magnesium 2.8 mg/dL (1.6-2.6); Osmolality,Calculated 282 (275-295); Potassium 4.5 mMol/L (3.4-5.1); Sodium 141 mMol/L (136-145); Thyroid Stimulating Hormone 1.02 uIU/mL (0.55-4.78); Total Protein 7.2 gm/dL (5.7-8.2); eGFR 45 See Note
[2025-02-01 07:08] LABS: Partial Thromboplastin Time 60.6 Seconds (22.0-36.0)
[2025-02-01] MEDS: GABAPENTIN 300 MG CAPSULE PO ×2 (08:03→21:36)
[2025-02-01] MEDS: ASPIRIN EC 81 MG TABEC PO (08:03)
[2025-02-01] MEDS: SODIUM CHLORIDE 0.9% 1000 ML 1,000 ML 125 ML IV (10:55)
[2025-02-01] MEDS: Heparin/D5w 25K 250 ML Ivpb 25,000 UNIT/250 ML BAG 7.185 UNIT IV (10:59)
[2025-02-01] MEDS: SODIUM CHLORIDE 0.9% 500 ML 500 ML 999 ML IV (10:59)
[2025-02-01 11:54] LABS: Partial Thromboplastin Time 52.0 Seconds (22.0-36.0)
[2025-02-01 12:53] LABS: Albumin, Serum 4.4 gm/dL (3.5-5.0); Anion Gap 9 (7-16); BUN/Creatinine Ratio 12 Ratio (12-20); Blood Urea Nitrogen 16 mg/dL (9-23); Calcium 9.3 mg/dL (8.3-10.6); Calcium (Corrected) 9.3 mg/dL (8.5-10.1); Carbon Dioxide 26.6 mMol/L (20.0-31.0); Chloride 106 mMol/L (98-107); Creatinine (Component) 1.3 mg/dL (0.6-1.3); Estimated Creatinine Clearance 39.9 mL/min (>60); Glucose 87 mg/dL (74-106); Osmolality,Calculated 283 (275-295); Phosphorous 4.3 mg/dL (2.4-5.1); Potassium 4.6 mMol/L (3.4-5.1); Sodium 142 mMol/L (136-145); eGFR 49 See Note
--- NOTE | 2025-02-01 12:53 | ESPR_ITS ---
<Statement entered by Martita Gordillo MD - 02/01/25 18:29> Patient was seen and examined by me personally. I have reviewed the below documentation by the team resident Dr Maximilian Gipson DO PGY-1 and agree with its findings. Ms. 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 Patient admitted for ACS workup. 02/01-patient seen at bedside, denies any chest pain, on heparin gtt. will continue aspirin 81 mg daily. Patient is scheduled for cardiac catheterization in a.m. case reviewed with radiologist Dr. Nolen per Dr. Orona filling defect seen in image 106, 107, 108 and 109 in the right pulmonary arterial branches. Continue atorvastatin 80 mg, recommend familial hyperlipidemia workup outpatient. Thank you for the consult and allowing to participate in the care of the patient. Cardiology will continue to follow. Case discussed with Attending Physician Dr. Wes Gordillo MD Internal Medicine PGY-2 Disclaimer: This note was dictated by speech recognition. Minor errors in wood cutter may be present due to voice recognition software. Documentation for date of: 02/01/25 Subjective Subjective Interval history: History of present illness: Ms. 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 Patient reported that she had an episode of retrosternal chest pain 9/10 severity radiating to her left side and jaw yesterday night around 9:30 PM, she denies any associated nausea/vomiting/palpitations/syncope. Patient also reported similar episode of chest tightness/pain when she went for her regular walk, reported that she reached out to her oncologist who recommended that she goes to the emergency department for further evaluation. Patient otherwise denies any shortness of breath, palpitations, syncope, presyncope, falls and dizziness. ED course: Vitals on presentation blood pressure 133/78, heart rate 93, respiratory 18, temp 98.4, O2 sat 100 on room air. ED labs pertinent for hemoglobin 8.2, platelet 185, WBC 5.6 coags show INR 1.0, CMP showed potassium 3.8, sodium 142, chloride 105, bicarb 25.7, anion gap 11, BUN 17, creatinine 1.2, glucose 98, lactate 1.5, calcium 9.6, AST ALT within normal limits, alk phos normal. Troponin 0.106. BNP 21. Lipid panel shows triglyceride 118, cholesterol 412, LDL 322, HDL 66, Pro-Jake negative EKG in ED on presentation shows sinus rhythm, T wave inversion noted in lead V3?V6, lead II, III and aVF. Chest x-ray shows mild atelectasis right lung base, nodular density in right midlung. CTA chest shows positive small right lower lobe pulmonary artery emboli, mild pneumonia, 18 mm pulmonary nodule with spiculated margins in the right lower lobe, metastatic solid left adrenal mass, periaortic lymphadenopathy. Cardiology consulted in setting of pulmonary embolism and cardiac chest pain. 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 4 kids Family History: Positive for CABG in father at 35, from stroke. No heart disease in siblings/uncle 02/01/2025: Patient's troponin in increasing trend from 3.116 to 5.896. Planned for Left Cardiac Cath tomorrow morning. No plavix before Cath. Continue aspirin and heparin drip. ECHO showed normal LV size and fucntion with EF 60-65% Exam Vital Signs Temp Pulse Resp BP Pulse Ox O2 Del Method 97.1 F 97 12 96/59 L 100 Room Air 02/01/25 08:03 02/01/25 12:00 02/01/25 08:05 02/01/25 08:03 02/01/25 08:05 02/01/25 04:00 Narrative Exam General: Awake and in no acute distress. Conversational and non-toxic appearing. HEENT: Normocephalic, atraumatic, extraocular movements intact, pupils equal and reactive to light. No JVD or bruits. Heart: Regular rate and rhythm, no murmurs, rubs or gallops. Lungs: Clear to auscultation with no wheezing or crackles bilaterally. Non- labored respirations, symmetric chest rise, no use of accessory muscles. Abdomen: Soft, nondistended, nontender. No guarding or rebound tenderness. Neurologic: Alert and oriented x3, no gross neurological deficit, and patient able to move all 4 extremities. Extremities: No edema, clubbing or cyanosis. No joint deformity. Skin: Warm and dry without rashes. Psychiatric: Cooperative, appropriate mood and affect. Objective Labs 02/01/25 04:25 02/01/25 11:00 Labs: Laboratory Results - last 24 hr 01/31/25 01/31/25 02/01/25 16:30 18:53 04:25 WBC 5.8 RBC 3.33 L Hgb 10.1 L Hct 29.8 L MCV 90 MCH 30.3 MCHC 33.9 RDW Std Deviation 46.8 H Plt Count 215 Neut % (Auto) 51 Lymph % (Auto) 35 [place] % (Auto) 10 Eos % (Auto) 3 Baso % (Auto) 1 Neut # (Auto) 3.0 Lymph # (Auto) 2.0 [place] # (Auto) 0.6 Eos # (Auto) 0.2 Baso # (Auto) 0.0 Immature Gran # (Auto) 0.01 H Absolute Nucleated RBC 0.00 Immature Gran % 0 Nucleated RBC % 0 APTT 111.5 H* D 60.6 H D Sodium 141 Potassium 4.5 D Chloride 104 Carbon Dioxide 26.0 Anion Gap 11 BUN 15 Creatinine 1.4 H Estim Creat Clear Calc 37.0 L eGFR 45 L BUN/Creatinine Ratio 11 L Glucose 90 Calculated Osmolality 282 Calcium 9.5 Corrected Calcium 9.5 Phosphorus Magnesium 2.8 H Total Bilirubin 0.8 AST 37 H ALT 13 Alkaline Phosphatase 100 Troponin I 5.896 H* D Total Protein 7.2 Albumin 4.2 Globulin 3.0 Albumin/Globulin Ratio 1.4 TSH 1.02 02/01/25 02/01/25 10:30 11:00 WBC RBC Hgb Hct MCV MCH MCHC RDW Std Deviation Plt Count Neut % (Auto) Lymph % (Auto) [place] % (Auto) Eos % (Auto) Baso % (Auto) Neut # (Auto) Lymph # (Auto) [place] # (Auto) Eos # (Auto) Baso # (Auto) Immature Gran # (Auto) Absolute Nucleated RBC Immature Gran % Nucleated RBC % APTT 52.0 H Sodium 142 Potassium 4.6 Chloride 106 Carbon Dioxide 26.6 Anion Gap 9 BUN 16 Creatinine 1.3 Estim Creat Clear Calc 39.9 L eGFR 49 L BUN/Creatinine Ratio 12 Glucose 87 Calculated Osmolality 283 Calcium 9.3 Corrected Calcium 9.3 Phosphorus 4.3 Magnesium Total Bilirubin AST ALT Alkaline Phosphatase Troponin I Total Protein Albumin 4.4 Globulin Albumin/Globulin Ratio TSH Quality Measures Quality Measures none Assessment & Plan Assessment Current Active Medications: Generic Name Dose Route Start Last Admin Trade Name Freq PRN Reason Stop Dose Admin Acetaminophen 650 mg 01/31/25 03:18 Acetaminophen 325 Mg Tablet PO 03/02/25 03:17 Q6H PRN Fever >101.5 Aspirin 81 mg 02/01/25 09:00 02/01/25 08:03 Aspirin Ec 81 Mg Tabec PO 03/03/25 08:59 81 mg QDAY ASHLEY Administration Atorvastatin Calcium 80 mg 01/31/25 21:00 01/31/25 20:30 Atorvastatin Calcium 20 Mg Tablet PO 03/02/25 20:59 80 mg HS ASHLEY Administration Gabapentin 300 mg 01/31/25 09:00 02/01/25 08:03 Gabapentin 300 Mg Capsule PO 03/02/25 08:59 300 mg BID ASHLEY Administration Heparin Sodium/Dextrose 25,000 unit in 250 mls @ 10.777 mls/hr 01/31/25 02:00 02/01/25 11:30 Heparin In D5w Ivpb IV 02/14/25 01:59 12 units/kg/hr .[id number] ASHLEY 7.185 mls/hr Protocol Titration 18 UNITS/KG/HR Piperacillin/Tazobactam/Dextrose 3.375 gm in 50 mls @ 12.5 mls/hr 01/31/25 22:00 02/01/25 05:17 Zosyn IV 02/07/25 21:59 12.5 mls/hr Q8HR ASHLEY Administration Protocol Sodium Chloride 1,000 mls @ 125 mls/hr 02/01/25 10:30 02/01/25 10:55 Ns IV 02/01/25 18:29 125 mls/hr .Q8H ASHLEY Administration Morphine Sulfate 2 mg 01/31/25 09:31 Morphine Sulf Inj 4 Mg/Ml Vial IVP 02/05/25 03:17 Q4HR PRN BREAKTHROUGH PAIN Ondansetron HCl 4 mg 01/31/25 03:18 Ondansetron Inj 2 Mg/Ml Inj 2 Ml IVP 03/02/25 03:17 Q6H PRN NAUSEA OR VOMITING Protocol Oxycodone/Acetaminophen 1 tab 01/31/25 03:18 Oxycodone/Apap 5/325 Tablet PO 02/05/25 03:17 Q6H PRN PAIN SCALE 4-6 (Moderate Pantoprazole Sodium 40 mg 01/31/25 09:00 02/01/25 08:04 Pantoprazole Inj 40 Mg Vial IVP 03/02/25 08:59 40 mg QDAY ASHLEY Administration Sennosides 1 tab 01/31/25 03:18 Senna Tablet PO 03/02/25 03:17 QDAY PRN constipation Protocol Tramadol HCl 50 mg 01/31/25 06:02 Tramadol Hcl 50 Mg Tablet PO 02/05/25 06:01 Q6HR PRN Pain 7-10 Plan Ms. 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 Patient admitted for further workup for cardiac chest pain, CTA positive for small right lower lobe pulmonary artery emboli and cardiology consulted for management. #ACS workup #NSTEMI type I versus type II, most likely type I Patient had multiple episodes of left-sided chest pain retrosternal 9/10 severity radiating to left side of jaw. Has associated chest pain/pressure with activity and eventually started last night at rest. Patient denies any recent stressors. Patient does have history of lung cancer however has good prognosis per oncologist, per patient she has good prognosis for 3 to 5 years. EKG in ED on presentation shows sinus rhythm, T wave inversion noted lead V3?V6, lead II, III and aVF. Troponin on presentation 0.106-> 0.754-> 3.116-> 5.896 CAD risk factors: Family history of CAD, dyslipidemia Aurea ACS risk and mortality calculator: 81 points, 2% probability of from admission to 6 months CONCHITA score for UA/NSTEMI 3 points, 13% risk at 14 days of all-cause mortality, new or recurrent DC or severe recurrent ischemia requiring urgent vascularization Heart score for Major Cardiac events: 6 points, moderate score, risk of mace 12 to 16.6% Hemoglobin A1c 5.4, TSH 1.45, cholesterol 412, LDL 322, HDL 66 -ECHO(01/31/2025) showed 1. Left ventricle size is normal and systolic function is normal. Estimated ejection fraction is 60-65%. There is normal diastolic function. 2. Right ventricle chamber size is normal and systolic function is normal. Estimated RVSP is 19 mmHg. 3. There is trace mitral and tricuspid valve regurgitation. Thickened anterior mitral valve. 4. Normal IVC with estimated RA pressure 3 mmHg. Recommendations: -Aspirin 81 mg daily -Continue heparin drip -Will plan for cardiac catheterization on Sunday a.m., keep n.p.o. after midnight on Sunday -Continue atorvastatin 80 mg at bedtime -Consider low-dose beta-john/DARLING/ARB if blood pressure permissible. -No need to trend troponin, monitor for chest pain #Low risk right lower lobe pulmonary embolism Patient presented with chest pain, CTA on admission shows small right lower lobar pulmonary artery emboli. PESI score: 82 points, class II low risk: 1.7-3.5% 30-day mortality BNP 21 on presentation, venous Doppler 01/29/2025 negative for DVT Patient saturating well on room air, troponin elevation likely in setting of NSTEMI Patient does have a history of stage IV metastatic lung cancer. -Continue heparin drip -Obtain echocardiogram to rule out right heart strain - Will transition to Eliquis after cardiac catheterization #Hyperlipidemia cholesterol 412, LDL 322, HDL 66 - Continue atorvastatin 80 mg at bedtime -consider familial hyperlipidemia, further workup outpatient #Stage IV non-small cell cancer of right lung with metastasis to bone and right adrenal #Chronic pain, by history #History of radiation pneumonitis Management as per primary team Thank you for the consult and allowing to participate in the care of the patient. Cardiology will continue to follow. Assessment and plan discussed with my attending physician Dr. Wheat and Dr. Gordillo (PGY-2) Dr. Gipson (PGY-1) - Internal medicine resident Attending Provider Attestation/Addendum I have personally seen and examined the patient separately on the above date of service and discussed the plan of care with the resident. I reviewed the resident Dr. Maximilian Gipson / Martita Gordillo consultation progress note and agree with the resident findings and plan in the note above and have also edited the documentation to reflect my findings and plan. Patient presented with significant chest pain and chest pressure 9/10 in intensity on the left side more concerning for ACS given the nonspecific ST-T changes with T wave inversions in leads II, 3, aVF, V3-V6. Patient does have significant family history of heart disease with father having heart attack at the age of 35 from 40 with bypass surgery and has other risk factors of hypertension, significant hyperlipidemia with LDL of 322.. Troponins were elevated at 0.106 and continued to rise at 0.7 and then 3.1. As mentioned above question mostly has NSTEMI type I and will need left heart cardiac catheterization to rule out any kind of acute coronary syndrome. Patient explained the risk and face and alternatives of performing a left heart cardiac catheterization including the risk of bleeding, heart attack, stroke and in detail. Patient agreeable for the procedure and plan for Sunday morning and will keep the patient n.p.o. after Sunday night. Continue heparin drip, aspirin 305 mg times once and and aspirin 81 mg once daily, high intensity statin Crestor 40 mg once daily, fenofibrate and beta-john blood pressure is permissible. Patient also has a small left lower lobe subsegmental PE and that was dictated by the radiologist. Patient started heparin drip for the NSTEMI and will continue the same and given she to can be transition to Eliquis after confirming with the radiologist regarding the PE. PE appears to be incidental finding and is not the cause for the elevated troponins. Wes Wheat M.D. Interventional Cardiology
--- NOTE | 2025-02-01 13:48 | ESPR_ITS ---
<Statement entered by Epifanio Nazario MD - 02/06/25 08:34> I reviewed above note and agree with findings and plans. I have also personally examined the patient with medicine team and went over assessment and plan with medical team including regulatory internship and resident physician. Documentation for date of: 02/01/25 Subjective Subjective Interval history: No acute overnight events. Reports feeling better today without new or worsening symptoms. Denies fever, chills, headaches, chest pain, sob, cough, GI or urinary symptoms. She was seen by cardiology last night who recommended continuing HEPARIN drip and ASPIRIN. We are no longer trending troponin and she will undergo cath tomorrow in the a.m. Echocardiogram was done showing normal systolic and diastolic functions. Exam Vital Signs Temp Pulse Resp BP Pulse Ox O2 Del Method 97.1 F 104 H 17 98/48 L 91 L Room Air 02/01/25 08:03 02/01/25 12:00 02/01/25 12:00 02/01/25 12:00 02/01/25 12:02/01/25 04:00 Narrative Exam Physical Exam General: Awake and in no acute distress. Conversational and non-toxic appearing. HEENT: Normocephalic, atraumatic, extraocular movements intact, pupils equal and reactive to light. No JVD or bruits. Heart: Regular rate and rhythm, no murmurs, rubs or gallops. Lungs: Clear to auscultation with no wheezing or crackles bilaterally. Non- labored respirations, symmetric chest rise, no use of accessory muscles. Abdomen: Soft, nondistended, nontender. No guarding or rebound tenderness. Neurologic: Alert and oriented x3, no gross neurological deficit, and patient able to move all 4 extremities. Extremities: No edema, clubbing or cyanosis. No joint deformity. Skin: Warm and dry without rashes. Psychiatric: Cooperative, appropriate mood and affect. Objective Labs 02/02/25 05:17 02/02/25 05:17 Labs: Laboratory Results - last 24 hr 01/31/25 01/31/25 02/01/25 16:30 18:53 04:25 WBC 5.8 RBC 3.33 L Hgb 10.1 L Hct 29.8 L MCV 90 MCH 30.3 MCHC 33.9 RDW Std Deviation 46.8 H Plt Count 215 Neut % (Auto) 51 Lymph % (Auto) 35 [place] % (Auto) 10 Eos % (Auto) 3 Baso % (Auto) 1 Neut # (Auto) 3.0 Lymph # (Auto) 2.0 [place] # (Auto) 0.6 Eos # (Auto) 0.2 Baso # (Auto) 0.0 Immature Gran # (Auto) 0.01 H Absolute Nucleated RBC 0.00 Immature Gran % 0 Nucleated RBC % 0 APTT 111.5 H* D 60.6 H D Sodium 141 Potassium 4.5 D Chloride 104 Carbon Dioxide 26.0 Anion Gap 11 BUN 15 Creatinine 1.4 H Estim Creat Clear Calc 37.0 L eGFR 45 L BUN/Creatinine Ratio 11 L Glucose 90 Calculated Osmolality 282 Calcium 9.5 Corrected Calcium 9.5 Phosphorus Magnesium 2.8 H Total Bilirubin 0.8 AST 37 H ALT 13 Alkaline Phosphatase 100 Troponin I 5.896 H* D Total Protein 7.2 Albumin 4.2 Globulin 3.0 Albumin/Globulin Ratio 1.4 TSH 1.02 02/01/25 02/01/25 10:30 11:00 WBC RBC Hgb Hct MCV MCH MCHC RDW Std Deviation Plt Count Neut % (Auto) Lymph % (Auto) [place] % (Auto) Eos % (Auto) Baso % (Auto) Neut # (Auto) Lymph # (Auto) [place] # (Auto) Eos # (Auto) Baso # (Auto) Immature Gran # (Auto) Absolute Nucleated RBC Immature Gran % Nucleated RBC % APTT 52.0 H Sodium 142 Potassium 4.6 Chloride 106 Carbon Dioxide 26.6 Anion Gap 9 BUN 16 Creatinine 1.3 Estim Creat Clear Calc 39.9 L eGFR 49 L BUN/Creatinine Ratio 12 Glucose 87 Calculated Osmolality 283 Calcium 9.3 Corrected Calcium 9.3 Phosphorus 4.3 Magnesium Total Bilirubin AST ALT Alkaline Phosphatase Troponin I Total Protein Albumin 4.4 Globulin Albumin/Globulin Ratio TSH Quality Measures Quality Measures none Assessment & Plan Assessment Current Active Medications: Generic Name Dose Route Start Last Admin Trade Name Freq PRN Reason Stop Dose Admin Acetaminophen 650 mg 01/31/25 03:18 Acetaminophen 325 Mg Tablet PO 03/02/25 03:17 Q6H PRN Fever >101.5 Aspirin 81 mg 02/01/25 09:00 02/01/25 08:03 Aspirin Ec 81 Mg Tabec PO 03/03/25 08:59 81 mg QDAY ASHLEY Administration Atorvastatin Calcium 80 mg 01/31/25 21:00 01/31/25 20:30 Atorvastatin Calcium 20 Mg Tablet PO 03/02/25 20:59 80 mg HS ASHLEY Administration Gabapentin 300 mg 01/31/25 09:00 02/01/25 08:03 Gabapentin 300 Mg Capsule PO 03/02/25 08:59 300 mg BID ASHLEY Administration Heparin Sodium/Dextrose 25,000 unit in 250 mls @ 10.777 mls/hr 01/31/25 02:00 02/01/25 11:30 Heparin In D5w Ivpb IV 02/14/25 01:59 12 units/kg/hr .[id number] ASHLEY 7.185 mls/hr Protocol Titration 18 UNITS/KG/HR Piperacillin/Tazobactam/Dextrose 3.375 gm in 50 mls @ 12.5 mls/hr 01/31/25 22:00 02/01/25 05:17 Zosyn IV 02/07/25 21:59 12.5 mls/hr Q8HR ASHLEY Administration Protocol Sodium Chloride 1,000 mls @ 125 mls/hr 02/01/25 10:30 02/01/25 10:55 Ns IV 02/01/25 18:29 125 mls/hr .Q8H ASHLEY Administration Morphine Sulfate 2 mg 01/31/25 09:31 Morphine Sulf Inj 4 Mg/Ml Vial IVP 02/05/25 03:17 Q4HR PRN BREAKTHROUGH PAIN Ondansetron HCl 4 mg 01/31/25 03:18 Ondansetron Inj 2 Mg/Ml Inj 2 Ml IVP 03/02/25 03:17 Q6H PRN NAUSEA OR VOMITING Protocol Oxycodone/Acetaminophen 1 tab 01/31/25 03:18 Oxycodone/Apap 5/325 Tablet PO 02/05/25 03:17 Q6H PRN PAIN SCALE 4-6 (Moderate Pantoprazole Sodium 40 mg 01/31/25 09:00 02/01/25 08:04 Pantoprazole Inj 40 Mg Vial IVP 03/02/25 08:59 40 mg QDAY ASHLEY Administration Sennosides 1 tab 01/31/25 03:18 Senna Tablet PO 03/02/25 03:17 QDAY PRN constipation Protocol Tramadol HCl 50 mg 01/31/25 06:02 Tramadol Hcl 50 Mg Tablet PO 02/05/25 06:01 Q6HR PRN Pain 7-10 Plan A 54-year-old female with significant past medical history of stage IV right lung adenocarcinoma metastatic to bones with recent metastasis to adrenal gland presented to the hospital with chief complaints of chest tightness, admitted for pulmonary emboli and elevated troponins. # Pulmonary embolism, Low Risk # Underlying Stage IV metastatic lung cancer - Presented to the hospital with chief complaints of chest discomfort and tightness. - Prior history of lung cancer and is on treatment, had shortness of breath at baseline and reported no worsening or new onset cough. - Vitals at the time of admission are significant for blood pressure 133/78 mmHg. - Labs at the time of admission are significant for hemoglobin 8.9, creatinine 1.2. - Troponin is 0.106, which later uptrended to 0.754, BNP is 21. - EKG done at the time of admission showed normal sinus rhythm with no significant ST and T wave changes. - Chest x-ray showed nodular density in the right mild lung which is from her cancer. - Venous Doppler is negative for deep vein thrombosis.. - CTA chest showed pulmonary emboli in the segmental branches of the right lobe pulmonary artery, right lower lobe lung nodule, dilated left atrium, small consolidations in the bilateral upper lobes. - PESI score is 82 points, class II, low risk: 1.7 to 3.5% 30-day mortality rate Plan * Echocardiogram is ordered. * Continue heparin drip. #NSTEMI type I versus type II #Hyperlipidemia - Came with complaints of chest tightness and discomfort along with back pain that lasted for 45 minutes at rest and subsided spontaneously after she came to the hospital. - Associated with radiation of pain to the inner side of the left arm, right jaw and posterior head. - No other associated complaints like shortness of breath, diaphoresis, palpitations, syncopal episodes. - Had similar episode a week ago and came to the ED, noted to have elevated troponins at that time and discharged as the pain subsided spontaneously and without any EKG changes. - EKG during this admission showed normal sinus rhythm with no ST and T wave changes. - Initial troponin is 0.106 that later up trended to 0.754, then to 3.116. - HEART score is 3, risk of mace of 0.9 to 1.7%. - CONCHITA score is 0, Aurea score is 81 points, 2% probability of in 6 months. - Lipid panel: Cholesterol 412, LDL 322, HDL 66. ? Normal thyroid function ? Echo showed normal systolic/diastolic function with a EF 60 to 65% Plan: * Continue HEPARIN drip as above * Continue daily ASPIRIN * Scheduled for cardiac cath on Friday 02/02 * Pending further recommendation from cardiology Prerenal GRETCHEN She had mild GRETCHEN this morning with creatinine 1.1 > 1.4 likely in settings of dehydration as she has been n.p.o. ? Started maintenance fluid, repeat renal panel showed improvement ? Renally dose meds, avoid overdiuresis and NEPHROTOXINS ? Daily CMP # Stage IV metastatic adenocarcinoma of liver - Following Dr. Caldwell on outpatient basis. - Using Tagrisso and gabapentin, tramadol as needed for pain. - Recent PET/CT done on 12/30/[address] showed [address] mass and Dr. Caldwell recommended biopsy per patient. Plan * Tagrisso held for now. Hospital Maintenance: Dispo: Tele DVT ppx: Heparin drip GI ppx: [place] Diet: Cardiac diet, n.p.o. at midnight IV lines: Peripheral Code status: Full Case was discussed with attending physician. Deondre Church DO PGY II This document was transcribed using voice recognition technology. Minor inaccuracies may be present. Attending Provider Attestation/Addendum I
[2025-02-01 17:37] LABS: Partial Thromboplastin Time 51.0 Seconds (22.0-36.0)
[2025-02-01] MEDS: ATORVASTATIN CALCIUM 20 MG TABLET 80 MG PO (21:35)
[2025-02-01 23:28] LABS: Partial Thromboplastin Time 48.4 Seconds (22.0-36.0)
[2025-02-02] VITALS (41 sets, daily range): BP systolic 83–131; BP diastolic 42–84; PULSE 0–115; RESP 9–24; TEMP 36.4–37.3; O2SAT 95–100; BMI 27.4
[2025-02-02] MEDS: HEPARIN SOD INJ 5000 UNIT/ML VIAL 2400 UNIT IV (00:26)
--- NOTE | 2025-02-02 01:54 | PC.NURSE ---
Nurse spoke with MD VELA, regarding heparin drip for collaborating supervising physician procedure in AM, Jayden verified heparin drip should be held now. Heparin drip stopped at 0147, care continued.
[2025-02-02] MEDS: PIPER/TAZO 3.375 GM PREMIX 3.375 GM/50 ML BAG IV (05:01)
[2025-02-02 06:31] LABS: Basophils # (Auto) 0.0 Thou/mm3 (0.0-0.2); Basophils % (Auto) 1 % (0-2.5); Eosinophils # (Auto) 0.2 Thou/mm3 (0.0-0.5); Eosinophils % (Auto) 3 % (0-10); Hematocrit 26.2 % (36.0-46.0); Immature Granulocytes Auto 0.02 Thou/mm3 (0.00-0.00); Lymphocytes # (Auto) 1.8 Thou/mm3 (1.0-4.8); Lymphocytes % (Auto) 35 % (10-50); Mean Corpuscular HGB Conc 33.2 g/dl (31.0-37.0); Mean Corpuscular Hemoglobin 30.4 pg (25.0-35.0); Mean Corpuscular Volume 92 fL (80-100); Monocytes # (Auto) 0.5 Thou/mm3 (0.0-0.8); Monocytes % (Auto) 10 % (0-12); Neutrophils # (Auto) 2.6 Thou/mm3 (1.8-7.7); Neutrophils % (Auto) 50 % (37-80); Nucleated Red Blood Cell # 0.00 Thou/mm3 (0.00-0.00); Nucleated Red Blood Cell % 0 /100 WBC (0); Platelet Count 207 Thou/mm3 (140-440); RDW Standard Deviation 48.1 fL (36.4-46.3); Red Blood Count 2.86 Miln/mm3 (4.00-5.20); White Blood Count 5.2 Thou/mm3 (3.6-11.0)
[2025-02-02 06:36] LABS: Hemoglobin 8.7 g/dL (12.0-16.0)
[2025-02-02 06:39] LABS: INR 1.0 (0.9-1.3); Partial Thromboplastin Time 25.1 Seconds (22.0-36.0); Prothrombin Time 10.9 Seconds (9.0-12.2)
[2025-02-02 06:43] LABS: Alanine Aminotransferase 16 U/L (10-49); Albumin, Serum 3.9 gm/dL (3.5-5.0); Albumin/Globulin Ratio 1.4 (1.2-2.2); Alkaline Phosphatase 96 U/L (46-116); Anion Gap 10 (7-16); Aspartate Amino Transferase 36 U/L (0-34); BUN/Creatinine Ratio 10 Ratio (12-20); Bilirubin,Total 0.9 mg/dL (0.3-1.2); Blood Urea Nitrogen 13 mg/dL (9-23); Calcium 9.4 mg/dL (8.3-10.6); Calcium (Corrected) 9.5 mg/dL (8.5-10.1); Carbon Dioxide 25.9 mMol/L (20.0-31.0); Chloride 107 mMol/L (98-107); Creatinine (Component) 1.3 mg/dL (0.6-1.3); Estimated Creatinine Clearance 40.4 mL/min (>60); Globulin 2.7 gm/dL (2.3-3.5); Glucose 86 mg/dL (74-106); Magnesium 2.2 mg/dL (1.6-2.6); Osmolality,Calculated 284 (275-295); Potassium 4.1 mMol/L (3.4-5.1); Sodium 143 mMol/L (136-145); Total Protein 6.6 gm/dL (5.7-8.2); eGFR 49 See Note
[2025-02-02] MEDS: ASPIRIN 81 MG CHEW PO (07:39)
--- NOTE | 2025-02-02 10:54 | PC.NURSE ---
Patient taken back to room 250 without sentinel events. Report provided to Symone STYLES at bedside. No acute changes or deviations from patient's baseline noted.
--- NOTE | 2025-02-02 12:56 | ESDS_ITS ---
<Statement entered by Epifanio Nazario MD - 02/07/25 12:53> I reviewed above note and agree with findings and plans. I have also personally examined the patient with medicine team and went over assessment and plan with medical team including development intern and resident physician. Planned Discharge Date 02/02/25 DS: Providers Provider Date of admission: 01/31/25 03:18 Primary care physician: Shaila Read MD Admitting Provider: Parviz Millan DO Attending Provider on Admission: Alem Palencia DO Consults: 01/31/25 10:45 Consult to Cardiology Stat Comment: Consulting Provider: Wes Wheat Attending Provider on DC: Epifanio Nazario MD Discharging Provider: Epifanio Nazario MD DS: Diagnosis Problem List Completed Was Problem List Reviewed/Reconciled?: Yes Hospital Course Hospital Course Hospital course: A 54-year-old female with Stage IV metastatic lung adenocarcinoma (currently on TAGRISSO) was admitted for chest tightness and radiating pain as a result of small right lobe pulmonary artery embolism seen on CTA for which she was started on HEPARIN GGT. Concurrently, she had NSTEMI with elevated troponin for which she underwent cardiac cath for cardiology showing atherosclerotic coronary artery disease but did not require any stenting. She also had significant hyperlipidemia on laboratories as well as mild pneumonia seen on x-ray. Her symptoms have improved on the day of discharge. She denied any shortness of breath or chest pain or tightness. She is tolerating oral intake without nausea or vomiting. She will continue with ELIQUIS for PE, as prescribed below. She was also started on high-dose statin therapy and METOPROLOL per cardiology recommendation. She will need to be on ASPIRIN eventually, and after discontinuation of ELIQUIS. She will see cardiology, Dr. Wheat, this Sunday. She was also given a 3-day course of DOXYCYCLINE for pneumonia. I recommended she follows up with Dr. Bell as soon as possible following discharge. Please also discuss CTA findings including 4.6 cm solid left adrenal mass and 18 mm pulmonary nodule in right lower lobe which may be old. Discussed benefits and risk of being on blood thinner, including internal bleed, GI bleed, and brain bleed. Patient agreed prior to starting therapy. IMAGE FINDINGS: * LE venous Doppler was negative for deep vein thrombosis bilaterally. * EKG showed sinus rhythm without acute ST changes. * CXR showed no lobar pneumonia or pulmonary edema. * CTA chest showed small right lower lobe pulmonary artery embolism, mild pneumonia of both upper lobes, 18 mm pulmonary nodule spiculated margin in the right lower lobe, possible metastatic solid left adrenal mass of 4.6 cm, periaortic lymphadenopathy. * Echocardiogram showed EF 60-65% with normal diastolic function, RVSP 19, normal RV/LV size and function. * Cardiac angiogram was performed, results will be discussed further in office with Dr. Wheat. PATIENT INSTRUCTIONS: * Follow-up with PCP within 1-2 weeks of discharge. * Follow-up with Dr. Wheat after discharge, he recommended that you see him in office this Sunday. Please call and make an appointment today. * Follow-up with Dr. Caldwell as soon as possible. Discuss left adrenal mass and right upper lung mass seen on CTA. * Continue taking ELIQUIS 10 mg TWICE DAILY for 7 more days. You recieved your first dose today at the hospital. Take your other dose this evening and con tinue taking twice daily until 02/09/2025. After 7 days, you will take ELIQUIS 5 mg TWICE DAILY for at least 3 months (first dose on 02/10/2025). You chemical production technician will decide if you should be on ELIQUIS for more than three months. * Continue taking METOPROLOL succinate 50 mg ONCE daily, HOLD dose if heart rate (pulse) is less than 60. * Rest completely for 24 hours, then avoid heavy lifting (over 10 lbs) and strenuous exercise for 5 to 7 days to allow the access site to heal. * Continue taking ATORVASTATIN 80 mg daily. * Continue taking DOXYCYCLINE 100 mg TWICE daily for 3 more days. * Continue taking medications as prescribed below. * Return to Emergency Room if symptoms persist, worsen, or new symptoms develop. ADMISSION DIAGNOSES: Pulmonary embolism, Low Risk Underlying Stage IV metastatic lung cancer NSTEMI type I versus type II Hyperlipidemia Prerenal GRETCHEN (resolved) Stage IV metastatic adenocarcinoma of liver Case was discussed with attending physician. Deondre Church DO PGY II This document was transcribed using voice recognition technology. Minor inaccuracies may be present. Time Spent with Patient Time attestation: Total time spent providing and/or coordinating discharge services: Time spent: Greater than 30 minutes Exam Vital Signs Temp Pulse Resp BP Pulse Ox O2 Del Method 97.6 F 96 14 119/70 100 Room Air 02/02/25 09:00 02/02/25 10:15 02/02/25 10:15 02/02/25 10:15 02/02/25 10:15 02/02/25 10:15 Narrative Exam GENERAL * Normal appearing female, on room air, NAD. HEENT * NCAT.?RAYO. Oral mucosa is moist. Patent Nares NECK * Supple, nontender, no JVD. CHEST * RRR, no m/g/r * CTAB, no w/r/r, symmetrical expansion. ABDOMEN * Soft, flat, nontender. No guarding/rebound tenderness/masses. * Bowel sounds presents EXTREMITIES * No edema/cyanosis.? SKIN * Warm and dry, no jaundice/rashes. NEUROMUSCULAR * Moves all 4 extremities well, with full ROM and good CSM. * No focal neurologic deficits. PSYCHIATRY * Normal mood and affect. Discharge Plan Plan Patient Disposition: HOME (Self Care) Patient condition on transfer: Stable Care Plan Goals: * Follow-up with PCP within 1-2 weeks of discharge. * Follow-up with Dr. Wheat after discharge, he recommended that you see him in office this Sunday. Please call and make an appointment today. * Follow-up with Dr. Caldwell as soon as possible. * Continue taking ELIQUIS 10 mg TWICE DAILY for 7 more days. You recieved your first dose today at the hospital. Take your other dose this evening and continue taking twice daily until 02/09/2025. After 7 days, you will take ELIQUIS 5 mg TWICE DAILY for at least 3 months (first dose on 02/10/2025). You chemical production technician will decide if you should be on ELIQUIS for more than three months. * Continue taking METOPROLOL succinate 50 mg ONCE daily, HOLD dose if heart rate (pulse) is less than 60. * Rest completely for 24 hours, then avoid heavy lifting (over 10 lbs) and strenuous exercise for 5 to 7 days to allow the access site to heal. * Continue taking ATORVASTATIN 80 mg daily. * Continue taking DOXYCYCLINE 100 mg TWICE daily for 3 more days. * Continue taking medications as prescribed below. * Return to Emergency Room if symptoms persist, worsen, or new symptoms develop. Prescriptions/Referrals Prescriptions/Med Rec: New Eliquis 5 mg tablet 10 mg PO BID 7 Days Qty: 28 0RF atorvastatin [Lipitor] 80 mg tablet 80 mg PO QDAY Qty: 30 0RF metoprolol succinate 50 mg tablet extended release 24 hr 50 mg PO QDAY Qty: 30 0RF Eliquis 5 mg tablet 5 mg PO BID Qty: 30 0RF doxycycline hyclate 100 mg capsule 100 mg PO QDAY 3 Days Qty: 3 0RF Continued tramadol 50 mg Tablet 50 mg PO PRN PRN (Reason: Pain) gabapentin 300 mg capsule 300 mg PO BID Tagrisso 80 mg tablet 80 mg PO DAILY Referrals: Wes Wheat MD [Physician, Cardiology] Shaila Read MD [Primary Care Provider, Family Practice] Patient/Caregiver Discharge Instructions Education Materials: Pulmonary Embolism, Preventing Pneumonia, Cardiac Catheterization Dc, Preventing Common Respiratory ..., Preventing Surgical Site Infections, Procedural Sedation Print Language: Greenlandic Stand Alone Forms: Nesha Award Info., Patient Portal Info Letter Discharge Order Discharge Orders: Discharge (Routine); Ordered 02/02/25 Ordered By: Deondre Church Quality Discharge Quality Measures VTE prophylaxis
[2025-02-02] MEDS: APIXABAN 2.5 MG TABLET 10 MG PO (13:44)
--- NOTE | 2025-02-02 14:14 | PD.CARDCATH ---
Cardiac Cath Procedure Procedure Name Date of procedure: 02/02/25 BLOCK SPLITTER OPERATOR: Wes Wheat MD PROCEDURE PERFORMED: 1. Left heart cardiac catheterization- Left and right coronary angiograms with LVEDP measurement and left ventriculogram 2. Ultrasound-guided access of the right radial artery 3. Conscious sedation for 30 minutes.. Procedure Narrative HISTORY AND INDICATIONS: Ms. Hutchins is a 54-year-old female with past medical history of stage IV non-small cell cancer right lung with metastasis to bone and left adrenal gland, radiation pneumonitis, chronic pain, dyslipidemia. Patient had multiple episodes of left-sided chest pain retrosternal 9/10 severity radiating to left side of jaw. Has associated chest pain/pressure with activity and eventually started last night at rest. Troponins peaked at 5.96 Patient denies any recent stressors. EKG in ED on presentation shows sinus rhythm, T wave inversion noted leads abnormalities. Patient was brought in for a cardiac catheterization. Patient was explained the risk benefits and alternatives of performing a left heart cardiac catheterization including the risk of bleeding, heart attack, stroke and in detail and the agreeable for the procedure. Consent signed, placed in the chart and H&P updated. DESCRIPTION OF PROCEDURE: The patient was brought to the cardiac catheterization lab and all asceptic precautions were followed. Patient was given 1 Mg of Versed and 50 mcg of fentanyl for moderate conscious sedation. 2 mL of lidocaine was given in the right wrist. The right radial artery was accessed via the ultrasound guidance as well as micropuncture technique. A 6 Kenyan glide sheath was introduced. We then used a 5 Kenyan TIG 4 catheter to perform the left and right coronary angiograms as well as a left ventriculogram which showed the following findings. 1. Left ventricular ejection fraction was normal at 60 to 65% without any regional wall motion abnormalities. LVEDP was normal at 10 mmHg. There was no significant transvalvular aortic gradient. 2. Right dominant circulation 3. Left main artery is a large-caliber vessel gives rise to LAD, LCX and without any significant disease. 4. LAD is a large sized artery with 50-60% stenosis of mid segment, gives rise to a medium size diagonal and without show any significant disease. 5. LCx is a large sized artery with 20-30% stenosis of proximal segment, gives rise to a medium OM1 and small OM2 without any significant disease. 6. RCA is a large artery with minimal luminal irregularities, gives rise to a medium RPDA and RPL without any significant disease. A radial band was used to achieve the hemostasis of the right radial artery access. Patient will be monitored in the cardiac materials coordinator for the next 2 to 3 hours and will be discharged home / telemetry later today if hemodynamically stable. Complications: None Specimens: None Blood loss: Estimated 5-10 ml Summary/findings: 1. NTSEMI - Troponin 5.86: LHC showed moderate CAD with 50-60% stenosis of mid LAD, 20-30% stenosis of proximal LCx and mid RCA, rest of coronaries with only minimal luminal irregularities and no angiographically significant obstruction. 2. LVEF normal at 60-65% and LVEDP normal at 10 mmHg. No significant transvalvular aortic gradient. Recommendations: 1. Recommend aggressive medical treatment and aggressive risk factor modification. 2. Recommended no lifting more than 5 pounds for next 7-10 days and follow up in my office in 7 days. Wes Wheat MD Interventional Cardiology.
--- NOTE | 2025-02-02 16:45 | PC.NURSE ---
at 1530, pt education complete for discharge with pt and famly at bedside, all questions answered and pt and family verbalize understanding with no further questions, clarificationdone with dr perla on care plan goal and prescriptions, PIV removed with hemostasis acheived, pt AOX4 in stable condition at discharge vitals- BP121/73, hr 80, temp. 98.9, oygen sat., 99%, rr 20
--- NOTE | 2025-02-02 19:53 | ESPR_ITS ---
Documentation for date of: 02/02/25 Subjective Subjective Interval history: History of present illness: Ms. Hutchins is a 54-year-old female with past medical history of stage IV non- small cell cancer right lung with metastasis to bone and left adrenal gland, radiation pneumonitis, chronic pain, dyslipidemia and family history of CABG in father who presented to [facility] emergency department on January 31, 2025 with a chief complaint of chest pain. Patient reported that she had an episode of retrosternal chest pain 9/10 severity radiating to her left side and jaw yesterday night around 9:30 PM, she denies any associated nausea/vomiting/palpitations/syncope. Patient also reported similar episode of chest tightness/pain when she went for her regular walk, reported that she reached out to her oncologist who recommended that she goes to the emergency department for further evaluation. Patient otherwise denies any shortness of breath, palpitations, syncope, presyncope, falls and dizziness. ED course: Vitals on presentation blood pressure 133/78, heart rate 93, respiratory 18, temp 98.4, O2 sat 100 on room air. ED labs pertinent for hemoglobin 8.2, platelet 185, WBC 5.6 coags show INR 1.0, CMP showed potassium 3.8, sodium 142, chloride 105, bicarb 25.7, anion gap 11, BUN 17, creatinine 1.2, glucose 98, lactate 1.5, calcium 9.6, AST ALT within normal limits, alk phos normal. Troponin 0.106. BNP 21. Lipid panel shows triglyceride 118, cholesterol 412, LDL 322, HDL 66, Pro-Jake negative EKG in ED on presentation shows sinus rhythm, T wave inversion noted in lead V3?V6, lead II, III and aVF. Chest x-ray shows mild atelectasis right lung base, nodular density in right midlung. CTA chest shows positive small right lower lobe pulmonary artery emboli, mild pneumonia, 18 mm pulmonary nodule with spiculated margins in the right lower lobe, metastatic solid left adrenal mass, periaortic lymphadenopathy. Cardiology consulted in setting of pulmonary embolism and cardiac chest pain. 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 4 kids Family History: Positive for CABG in father at 35, from stroke. No heart disease in siblings/uncle 02/01/2025: Patient's troponin in increasing trend from 3.116 to 5.896. Planned for Left Cardiac Cath tomorrow morning. No plavix before Cath. Continue aspirin and heparin drip. ECHO showed normal LV size and fucntion with EF 60-65% 02/02/2025: Patient received left heart cardiac catheterization today, which showed CAD with 50-60% stenosis of mid LAD, 20-30% stenosis of proximal LCx and mid RCA. VEF normal at 60-65% and LVEDP normal at 10 mmHg. After discharge, continue taking eliquis 10mg po bid for 7 more days. (until 02/09/2025) and after 7 days, change to Eliquis 5mg po bid for at least 3 months (first dose 02/10/2025). Follow up with Dr. Wheat, Assistant Professor Of Forestry, to decide if needs to continue eliquis even more. Continue metoprolol 50mg po qd, but hold if BP <60. Discontinue taking aspirin for 2 weeks. and follow up with Dr. Wheat if patient needs to start taking it. Continue Atorvastatin 80mg po qd. No lifting more than 5 pounds for next 7-10 days and follow up outpatient in 7 days Exam Vital Signs Temp Pulse Resp BP Pulse Ox O2 Del Method 97.6 F 87 11 L 115/67 96 Room Air 02/02/25 09:00 02/02/25 14:30 02/02/25 14:30 02/02/25 12:15 02/02/25 14:30 02/02/25 12:00 Narrative Exam General: Awake and in no acute distress. Conversational and non-toxic appearing. HEENT: Normocephalic, atraumatic, extraocular movements intact, pupils equal and reactive to light. No JVD or bruits. Heart: Regular rate and rhythm, no murmurs, rubs or gallops. Lungs: Clear to auscultation with no wheezing or crackles bilaterally. Non- labored respirations, symmetric chest rise, no use of accessory muscles. Abdomen: Soft, nondistended, nontender. No guarding or rebound tenderness. Neurologic: Alert and oriented x3, no gross neurological deficit, and patient able to move all 4 extremities. Extremities: No edema, clubbing or cyanosis. No joint deformity. Skin: Warm and dry without rashes. Psychiatric: Cooperative, appropriate mood and affect. Objective Labs 02/02/25 05:17 02/02/25 05:17 Labs: Laboratory Results - last 24 hr 02/01/25 02/02/25 02/02/25 22:56 05:17 09:19 WBC 5.2 RBC 2.86 L Hgb 8.7 L Hct 26.2 L MCV 92 MCH 30.4 MCHC 33.2 RDW Std Deviation 48.1 H Plt Count 207 Neut % (Auto) 50 Lymph % (Auto) 35 Alexander % (Auto) 10 Eos % (Auto) 3 Baso % (Auto) 1 Neut # (Auto) 2.6 Lymph # (Auto) 1.8 Alexander # (Auto) 0.5 Eos # (Auto) 0.2 Baso # (Auto) 0.0 Immature Gran # (Auto) 0.02 H Absolute Nucleated RBC 0.00 Immature Gran % 0 Nucleated RBC % 0 PT 10.9 INR 1.0 APTT 48.4 H 25.1 D Sodium 143 Potassium 4.1 D Chloride 107 Carbon Dioxide 25.9 Anion Gap 10 BUN 13 Creatinine 1.3 Estim Creat Clear Calc 40.4 L eGFR 49 L BUN/Creatinine Ratio 10 L Glucose 86 Calculated Osmolality 284 Calcium 9.4 Corrected Calcium 9.5 Magnesium 2.2 Total Bilirubin 0.9 AST 36 H ALT 16 Alkaline Phosphatase 96 Total Protein 6.6 Albumin 3.9 D Globulin 2.7 Albumin/Globulin Ratio 1.4 Blood Type A Positive Antibody Screen NEGATIVE Crossmatch See Detail Blood Bank Wristband ID Yes Quality Measures Quality Measures VTE prophylaxis Assessment & Plan Plan Ms. Hutchins is a 54-year-old female with past medical history of stage IV non- small cell cancer right lung with metastasis to bone and left adrenal gland, radiation pneumonitis, chronic pain, dyslipidemia and family history of CABG in father who presented to [facility] emergency department on January 31, 2025 with a chief complaint of chest pain. Patient admitted for further workup for cardiac chest pain, CTA positive for small right lower lobe pulmonary artery emboli and cardiology consulted for management. #ACS workup #NSTEMI type I versus type II, most likely type I Patient had multiple episodes of left-sided chest pain retrosternal 9/10 severity radiating to left side of jaw. Has associated chest pain/pressure with activity and eventually started last night at rest. Patient denies any recent stressors. Patient does have history of lung cancer however has good prognosis per oncologist, per patient she has good prognosis for 3 to 5 years. EKG in ED on presentation shows sinus rhythm, T wave inversion noted lead V3?V6, lead II, III and aVF. Troponin on presentation 0.106-> 0.754-> 3.116-> 5.896 CAD risk factors: Family history of CAD, dyslipidemia Aurea ACS risk and mortality calculator: 81 points, 2% probability of from admission to 6 months CONCHITA score for UA/NSTEMI 3 points, 13% risk at 14 days of all-cause mortality, new or recurrent SC or severe recurrent ischemia requiring urgent vascularization Heart score for Major Cardiac events: 6 points, moderate score, risk of mace 12 to 16.6% Hemoglobin A1c 5.4, TSH 1.45, cholesterol 412, LDL 322, HDL 66 -ECHO(01/31/2025) showed 1. Left ventricle size is normal and systolic function is normal. Estimated ejection fraction is 60-65%. There is normal diastolic function. 2. Right ventricle chamber size is normal and systolic function is normal. Estimated RVSP is 19 mmHg. 3. There is trace mitral and tricuspid valve regurgitation. Thickened anterior mitral valve. 4. Normal IVC with estimated RA pressure 3 mmHg. -Left Heart Catherization (02/02/2025) showed: 1. Left ventricular ejection fraction was normal at 60 to 65% without any regional wall motion abnormalities. LVEDP was normal at 10 mmHg. There was no significant transvalvular aortic gradient. 2. Right dominant circulation 3. Left main artery is a large-caliber vessel gives rise to LAD, LCX and without any significant disease. 4. LAD is a large sized artery with 50-60% stenosis of mid segment, gives rise to a medium size diagonal and without show any significant disease. 5. LCx is a large sized artery with 20-30% stenosis of proximal segment, gives rise to a medium OM1 and small OM2 without any significant disease. 6. RCA is a large artery with minimal luminal irregularities, gives rise to a medium RPDA and RPL without any significant disease. Summary: 1. NTSEMI - Troponin 5.86: LHC showed moderate CAD with 50-60% stenosis of mid LAD, 20-30% stenosis of proximal LCx and mid RCA, rest of coronaries with only minimal luminal irregularities and no angiographically significant obstruction. 2. LVEF normal at 60-65% and LVEDP normal at 10 mmHg. No significant transvalvular aortic gradient. Recommendations: -After discharge, continue taking eliquis 10mg po bid for 7 more days. (until 02/09/2025) and after 7 days, change to Eliquis 5mg po bid for at least 3 months (first dose 02/10/2025). Follow up with Dr. Wheat, Assistant Professor Of Forestry, to decide if needs to continue eliquis even more. -Continue metoprolol 50mg po qd, but hold if BP <60. -Discontinue taking aspirin for 2 weeks and follow up with Dr. Wheat if patient needs to start taking it. -Continue Atorvastatin 80mg po qd. -No lifting more than 5 pounds for next 7-10 days and follow up outpatient in 7 days #Low risk right lower lobe pulmonary embolism Patient presented with chest pain, CTA on admission shows small right lower lobar pulmonary artery emboli. PESI score: 82 points, class II low risk: 1.7-3.5% 30-day mortality BNP 21 on presentation, venous Doppler 01/29/2025 negative for DVT Patient saturating well on room air, troponin elevation likely in setting of NSTEMI Patient does have a history of stage IV metastatic lung cancer. Plan: -Obtain echocardiogram to rule out right heart strain -After discharge, continue taking eliquis 10mg po bid for 7 more days. (until 02/09/2025) and after 7 days, change to Eliquis 5mg po bid for at least 3 months (first dose 02/10/2025). Follow up with Dr. Wheat, Assistant Professor Of Forestry, to decide if needs to continue eliquis even more. #Hyperlipidemia cholesterol 412, LDL 322, HDL 66 -Continue atorvastatin 80 mg at bedtime -consider familial hyperlipidemia, further workup outpatient #Stage IV non-small cell cancer of right lung with metastasis to bone and right adrenal #Chronic pain, by history #History of radiation pneumonitis -Management per Primary Hospitalist team Thank you for allowing us to participate in the care of Ms Kellie Hutchins. Cardiology will continue to follow Assessment and plan discussed with my attending physician Dr. Jarret Gipson (PGY-1) - Internal medicine resident Attending Provider Attestation/Addendum I have personally seen and examined the patient separately on the above date of service and discussed the plan of care with the resident. I reviewed the resident Dr. Maximilian Gipson consultation progress note and agree with the resident findings and plan in the note above and have also edited the documentation to reflect my findings and plan. Wes Wheat M.D. Interventional Cardiology
[2025-02-03 09:26] LABS: ACT (CATH LAB ONLY) 286.0 Seconds (89-169)
== END 2025-02-02 15:37 | disposition home or self-care (01) | DRG 280 ==
LOC: SERX 01-31 02:00 → SERHOLD 01-31 03:35 → S2SX 02-02 07:01
PROVIDERS: Internal Medicine; Internal Medicine Cardiovascular Disease; Physician Assistant; Admitting Provider Internal Medicine; Emergency Provider Emergency Medicine; PCP Family Medicine; Visit Provider Internal Medicine
PROC: 4A023N7 Measurement of Cardiac Sampling and Pressure, Left Heart, Percutaneous Approach (ICD-10-PCS; principal; 2025-02-02 07:30)
DX: I21.4 Non-ST elevation (NSTEMI) myocardial infarction (principal); I26.93 Single subsegmental thrombotic pulmonary embolism without acute cor pulmonale; J18.9 Pneumonia, unspecified organism; C79.72 Secondary malignant neoplasm of left adrenal gland; C34.90 Malignant neoplasm of unspecified part of unspecified bronchus or lung; J98.11 Atelectasis; C79.51 Secondary malignant neoplasm of bone; N17.9 Acute kidney failure, unspecified; C78.7 Secondary malignant neoplasm of liver and intrahepatic bile duct; G89.29 Other chronic pain; E78.5 Hyperlipidemia, unspecified; I25.10 Atherosclerotic heart disease of native coronary artery without angina pectoris; E86.0 Dehydration; R59.1 Generalized enlarged lymph nodes; Z98.82 Breast implant status; Z79.01 Long term (current) use of anticoagulants; Z79.82 Long term (current) use of aspirin; Z79.899 Other long term (current) drug therapy
CPT/HCPCS: 36415; 71045; 71275; 80053; 80061; 80069; 83036; 83605; 83735; 83880; 84145; 84443; 84484; 85025; 85347; 85610; 85730; 86850; 86900; 86901; 86923; 87635; 87811; 93005; 93225; 93306; 96365; 99152; 99153; 99284; A4649; C1725; C1769; C1887; C1894; J0168; J0461; J0696; J1643; J1644; J2250; J2312; J2371; J2470; J2543; J3010; J3475; J3490; J7030; J7050; J7120; J7999; Q9967; A9270; J2305

== ENCOUNTER 2025-02-10 10:36 | Outpatient (RCR) | payer BC, SELFPAY ==
--- NOTE | 2025-02-14 19:44 | CTCFLWUP_ITS ---
Patient: CHAD ROMAN : 1970 Page 6 of 6 FOLLOW UP NOTE DATE OF SERVICE: 02/10/2025 NAME: CHAD ROMAN ACCOUNT: [id number] : 1970 AGE: 54 INTERVAL HISTORY: For this asymptomatic ECOG PS 1 patient with a single enlarging adrenal lesion on osimertinib for 18 months,?proceed with planned plasma-based molecular testing and pursue definitive local therapy (SABR preferred for adrenal metastasis) with continuation of osimertinib. If plasma testing is negative, s fozialy consider tissue biopsy of the adrenal lesion. Phelps systemic therapy (carboplatin/pemetrexed plus amivantamab-vmjw as preferred option) for development of symptomatic or systemic progression with multiple lesions. ONCOLOGY HISTORY: DIAGNOSIS: Malignant neoplasm of lower lobe, right bronchus or lung [ICD10] C34.31; Secondary malignant neoplasm of bone [ICD10] C79.51 Malignant neoplasm of lower lobe, right bronchus or lung [ICD10] C34.31; Secondary malignant neoplasm of bone [ICD10] C79.51 DATE OF DIAGNOSIS: 05/09/2022 STAGE/TNM: Stage IV with bone lesions lung cancer Right lower lobe CT-guided biopsy showed non-small cell cancer favoring adenocarcinoma EGFR exon 19 deletion TREATMENT HISTORY: Care?Plan Start?Date Cycle Day Intent Xgeva?120?mg?q?monthly?for?3?months,?followed?by?q?3?months 06/20/2022 1 90 Palliative HISTORY OF PRESENT ILLNESS: 54-year-old female ENG speaking female with history of COVID-19 infection in the past has the following oncology history. Patient denies any history of cigarette smoking or exposure to secondhand smoking. 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 Ms. Roman is a non-smoker. No history of exposure to secondhand smoking 04/07/2022: Ms. Roman had ultrasound of the soft tissue of the neck to evaluate palpable lump on the left side of theneck. 07/21/[address] scan shows stable osteoblastic metastatic cysts in T2 bilateral rib L3 posterior right iliac bone left acetabulum and stable non-hypermetabolic 15 mm pulmonary nodule right midlung PET CT scan on 06/09/2022 showed widespread osteo blastic disease including posterior left acetabulum spinous processWidespread osscous metastatic disease. multiple hypennetabolie osseous lesions including posterior le? acetabulum. posterior spinous process Ll right third. ?fth. seventh ribs. 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 aspirin - 81 mg 1 tab As directed 2. atorvastatin - 80 mg 1 tab As directed 3. Caltrate-600 Plus Vitamin D3 - 600 mg(1,500mg) -400 unit 1 tab Twice a Day 4. Eliquis - 5 mg 1 tab As directed 5. gabapentin - 300 mg 1 Capsule twice daily 6. metoprolol succinate - 50 mg 1 tab As directed 7. osimertinib - 80 mg 1 tab Daily 8. Tagrisso - 80 mg 1 tab Daily Medications Last Reconciled by Sondra Tenorio MD on 02/10/2025 ALLERGIES: No Known Allergies REVIEW OF SYSTEMS: A complete 14-point review of systems was performed and is negative except as noted in interval history. PHYSICAL EXAMINATION: VITAL SIGNS: Temperature?98.1, B/P?99/63, Oxygen?Saturation?100% Weight?131?lbs (Change?since?01/22/25:?-1?lbs) PAIN: 2 - Mild pain ECOG Performance Status: 1 - Symptomatic; ambulatory; restricted in strenuous activity The patient appeared well-nourished, alert, and in no apparent distress via video conferencing. LABORATORY DATA: I have personally reviewed and interpreted each of the patient?s relevant lab tests, abnormal findings are below: Date 02/01/25 02/02/25 ??WHITE?BLOOD?COUNT?(Thou/mm3) ? 5.2 ??RED?BLOOD?COUNT?(Miln/mm3) ? 2.86?L ??HEMOGLOBIN?(gm/dl) ? 8.7?L ??HEMATOCRIT?(%) ? 26.2?L ??PLATELET?COUNT?(Thou/mm3) ? 207 ??NEUTROPHILS?%,?AUTO?(%) ? 50 ??LYMPH?%,?AUTO?(%) ? 35 ??NEUTROPHILS,?AUTO?(Thou/mm3) ? 2.6 ??GLUCOSE,RANDOM?(mg/dL) 87 86 ??BLOOD?UREA?NITROGEN?(mg/dL) 16 13 ??CREATININE?(mg/dL) 1.30 1.30 ??SODIUM?(mmol/L) 142 143 ??POTASSIUM?(mmol/L) 4.6 4.1 ??CHLORIDE?(mmol/L) 106 107 ??CrCl?(CandG)?(ml/min) 47.85 47.85 ??AST/SGOT?(Unit/L) ? 36?H ??ALT/SGPT?(Unit/L) ? 16 ??ALKALINE?PHOSPHATASE?(Unit/L) ? 96 ??BILIRUBIN,?TOTAL?(mg/dL) ? 0.9 ??PROTEIN?TOTAL?(gm/dl) ? 6.6 ??ALBUMIN,?SERUM?(gm/dl) 4.4 3.9 ??GLOBULIN?(gm/dl) ? 2.7 ??ALBUMIN/GLOBULIN?RATIO ? 1.4 ??CALCIUM,?SERUM?(mg/dL) 9.3 9.4 ??CALCIUM?SERUM?(CORRECTED)?(mg/dL) 9.3 9.5 ??MAGNESIUM?(mg/dL) ? 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 The National Comprehensive Cancer Network specifically recommends considering?plasma or tissue-based testing via multigene panel at progression for genomic resistance mechanisms.[1]?If plasma-based testing is negative, tissue-based testing with rebiopsy material is strongly recommended. Additionally,?biopsy should be considered at time of progression to rule out small cell lung cancer transformation (approximately 6%).[1] Plan 1. Determine Pattern of Progression The management approach depends critically on whether progression is?oligoprogressive?(limited sites, typically 1-5 lesions) versus?systemic?(multiple lesions or symptomatic progression):patient only have adrenal disease . For Asymptomatic Oligoprogressive Disease: ? Definitive local therapy (stereotactic ablative radiotherapy, surgery, or image-guided thermal ablation such as cryotherapy, microwave, or radiofrequency ablation) with continuation of osimertinib is recommended. The National Comprehensive Cancer Network specifically notes that clinical trials have i ncluded up to 3-5 progressing sites for this strategy.[1] ? Continue osimertinib?during and after local therapy to maintain systemic disease control.[1] 5. Anticoagulation Management Continue apixaban?for treatment of pulmonary embolism. Monitor for bleeding complications, particularly if systemic therapy with chemotherapy is initiated. If lazertinib plus amivantamab-vmjw is considered, coordinate with regarding management of dual anticoagulation (therapeutic plus prophylactic). 6. Surveillance and Multidisciplinary Care ? Imaging surveillance: Response assessment with CT of known or high-risk sites of disease every 6-12 weeks during subsequent therapy per National Comprehensive Cancer Network guidelines. ? Multidisciplinary tumor board: Discussion of plasma-based molecular testing results, local therapy options (SABR vs surgery vs thermal ablation), and systemic therapy selection, particularly if targetable resistance mechanisms are identified.refer to tertiary center ? Palliative care: Patients with advanced lung cancer should be referred to interdisciplinary palliative care teams early in the course of disease, alongside active treatment (NCCN Guidelines for Palliative Care).Dr WRIGHT Follows 7. Contingency Planning Based on Molecular Testing Results If plasma testing identifies: ? MET amplification: Consider MET/EGFR combination therapy (e.g., osimertinib plus savolitinib or capmatinib plus osimertinib in clinical trial) ? C797S mutation: Consider fourth-generation EGFR TKIs in clinical trial or transition to chemotherapy-based regimens ? Small cell transformation: Transition to small cell lung cancer treatment per NCCN Guidelines for Small Cell Lung Cancer ? No resistance mechanism identified: Proceed with local therapy plus continuation of osimertinib as planned; consider tissue biopsy if plasma testing is negative 8. Clinical Trial Consideration Given the oligoprogressive pattern and planned molecular testing,?consider enrollment in clinical trials?evaluating novel combinations or fourth-generation EGFR TKIs, particularly if actionable resistance mechanisms are identified on plasma testing. Summary Recommendation For this asymptomatic ECOG PS 1 patient with a single enlarging adrenal lesion on osimertinib for 18 months,?proceed with planned plasma-based molecular testing and pursue definitive local therapy (SABR preferred for adrenal metastasis) with continuation of osimertinib. If plasma testing is negative, [place] consider tissue biopsy of the adrenal lesion. Phelps systemic therapy (carboplatin/pemetrexed plus amivantamab-vmjw as preferred option) for development of symptomatic or systemic progression with multiple lesions. ? 3. Systemic Therapy Options (For Symptomatic or Multiple Lesions) Preferred (Category 1): ? Carboplatin/pemetrexed plus amivantamab-vmjw?(nonsquamous, if not previously given). Prophylactic anticoagulation is recommended at initiation to prevent venous thromboembolic events. Prophylaxis with oral doxycycline or minocycline, clindamycin lotion applied to the scalp, chlorhexidine applied to nails, and a ceramide-based non-comedogenic moisturizer is recommended to reduce dermatologic adverse events. Prophylaxis with oral dexamethasone 8 mg for 2 days prior to first dose is recommended to reduce infusion-related reactions.[1] Useful in Certain Circumstances: ? Lazertinib plus amivantamab-vmjw?(if not previously given). Prophylactic anticoagulation is recommended at initiation.[1] Other Recommended Options: ? Datopotamab deruxtecan-dlnk?(for EGFR mutations including exon 19 deletion, nonsquamous)[1] ? [place]-based chemotherapy alone: Docetaxel, pemetrexed, gemcitabine, docetaxel plus ramucirumab, or albumin-bound paclitaxel[1] ? Afatinib plus cetuximab?may be considered in patients with disease progression on EGFR TKI therapy[1] Ms. Roman has only oligo metastatic disease Ordered ? liquid biopsy Radiation therapy to adrenal gland and cont tagrisso ORDERS: Order # Description [id number] RETURN TO CLINIC: I reviewed the diagnosis, prognosis, and recommended treatment/procedure options with the patient (and/or their legal community health representative), including the potential benefits, risks, side effects and alternative therapies. We also discussed the option of no treatment and the possibility of clinical trial participation, if applicable. All questions were addressed, and they demonstrated understanding. They provided informed consent to proceed with the proposed plan of care. BILLING AND COMPLIANCE: I reviewed external records from providers outside my specialty as summarized above. I spent a total of 50 minutes on this patient?s care on the day of their visit excluding time spent related to any billed procedures. This time includes time spent with the patient as well as time spent documenting in the medical record, reviewing patients records and tests, obtaining history, placing orders, communicating with other healthcare professionals, counseling the patient, family or caregiver, and/or care coordination for the diagnoses above. Electronically Signed by: {Object.Sanct_ID*PnP.NameFL@M}, {Object.Sanct_ID*PnP.Suffix@U} D: {Object.Sanct_Date} T: {Object.Sanct_Time} CC: PCP: Shaila Read Referring: Shaila Read This document was completed utilizing speech recognition software. Grammatical errors, random word insertions, pronoun errors, and incomplete sentences are an occasional consequence of this system due to software limitations, ambient noise, and hardware issues. Any formal questions or concerns about the content, text or information contained within the body of this dictation should be directly addressed to the provider for clarification.
--- NOTE | 2025-02-15 22:45 | CTCFLWUP_ITS ---
Patient: CHAD HUTCHINS : 1970 Page 3 of 4 FOLLOW UP NOTE DATE OF SERVICE: 01/22/2025 NAME: HCAD HUTCHINS ACCOUNT: [id number] : 1970 AGE: 54 INTERVAL HISTORY: Patient is complaining of chest pain and shortness of breath. Do not have any fever. Presented to the emergency room for evaluation. Patient advised to come back and keep her appointment in a week to reassess. Patient's PET CT scan and a brain MRI reviewed with her. There is metastatic lesion in the left adrenal gland. ONCOLOGY HISTORY: DIAGNOSIS: Malignant neoplasm of lower lobe, right bronchus or lung [ICD10] C34.31; Secondary malignant neoplasm of bone [ICD10] C79.51 Malignant neoplasm of lower lobe, right bronchus or lung [ICD10] C34.31; Secondary malignant neoplasm of bone [ICD10] C79.51 DATE OF DIAGNOSIS: 05/09/2022 STAGE/TNM: Stage IV with bone lesions lung cancer Right lower lobe CT-guided biopsy showed non-small cell cancer favoring adenocarcinoma EGFR exon 19 deletion TREATMENT HISTORY: Care?Plan Start?Date Cycle Day Intent Xgeva?120?mg?q?monthly?for?3?months,?followed?by?q?3?months 06/20/2022 1 90 Palliative HISTORY OF PRESENT ILLNESS: 54-year-old female ENG speaking female with history of COVID-19 infection in the past has the following oncology history. Patient denies any history of cigarette smoking or exposure to secondhand smoking. 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 Ms. Hutchins is a non-smoker. No history of exposure to secondhand smoking 04/07/2022: Ms. Hutchins had ultrasound of the soft tissue of the neck to evaluate palpable lump on the left side of theneck. 07/21/[address] scan shows stable osteoblastic metastatic cysts in T2 bilateral rib L3 posterior right iliac bone left acetabulum and stable non-hypermetabolic 15 mm pulmonary nodule right midlung PET CT scan on 06/09/2022 showed widespread osteo blastic disease including posterior left acetabulum spinous processWidespread osscous metastatic disease. multiple hypennetabolie osseous lesions including posterior le? acetabulum. posterior spinous process Ll right third. ?fth. seventh ribs. body of the sternum IMPRESSION: Metastatic supraclavicular lymphadenopathy Metastatic mediastinal lymphadenopathy Hypermetabolic 20 mm pulmonary nodule right upper lobe Widespread osseous metastatic disease 12/30/[address] scan shows new lesion 39 mm in the left adrenal gland. 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 aspirin - 81 mg 1 tab As directed 2. atorvastatin - 80 mg 1 tab As directed 3. Caltrate-600 Plus Vitamin D3 - 600 mg(1,500mg) -400 unit 1 tab Twice a Day 4. Eliquis - 5 mg 1 tab As directed 5. gabapentin - 300 mg 1 Capsule twice daily 6. metoprolol succinate - 50 mg 1 tab As directed 7. osimertinib - 80 mg 1 tab Daily 8. Tagrisso - 80 mg 1 tab Daily Medications Last Reconciled by Sondra Tenorio MD on 02/10/2025 ALLERGIES: No Known Allergies REVIEW OF SYSTEMS: A complete 14-point review of systems was performed and is negative except as noted in interval history. PHYSICAL EXAMINATION: VITAL SIGNS: Temperature?97.2, B/P?123/81, Oxygen?Saturation?99% Weight?132?lbs PAIN: 2 - Mild pain ECOG Performance Status: 1 - Symptomatic; ambulatory; restricted in strenuous activity The patient appeared well-nourished, alert, and in no apparent distress LABORATORY DATA: I have personally reviewed and interpreted each of the patient?s relevant lab tests, abnormal findings are below: Date 02/01/25 02/02/25 ??WHITE?BLOOD?COUNT?(Thou/mm3) ? 5.2 ??RED?BLOOD?COUNT?(Miln/mm3) ? 2.86?L ??HEMOGLOBIN?(gm/dl) ? 8.7?L ??HEMATOCRIT?(%) ? 26.2?L ??PLATELET?COUNT?(Thou/mm3) ? 207 ??NEUTROPHILS?%,?AUTO?(%) ? 50 ??LYMPH?%,?AUTO?(%) ? 35 ??NEUTROPHILS,?AUTO?(Thou/mm3) ? 2.6 ??GLUCOSE,RANDOM?(mg/dL) 87 86 ??BLOOD?UREA?NITROGEN?(mg/dL) 16 13 ??CREATININE?(mg/dL) 1.30 1.30 ??SODIUM?(mmol/L) 142 143 ??POTASSIUM?(mmol/L) 4.6 4.1 ??CHLORIDE?(mmol/L) 106 107 ??CrCl?(CandG)?(ml/min) 47.85 47.85 ??AST/SGOT?(Unit/L) ? 36?H ??ALT/SGPT?(Unit/L) ? 16 ??ALKALINE?PHOSPHATASE?(Unit/L) ? 96 ??BILIRUBIN,?TOTAL?(mg/dL) ? 0.9 ??PROTEIN?TOTAL?(gm/dl) ? 6.6 ??ALBUMIN,?SERUM?(gm/dl) 4.4 3.9 ??GLOBULIN?(gm/dl) ? 2.7 ??ALBUMIN/GLOBULIN?RATIO ? 1.4 ??CALCIUM,?SERUM?(mg/dL) 9.3 9.4 ??CALCIUM?SERUM?(CORRECTED)?(mg/dL) 9.3 9.5 ??MAGNESIUM?(mg/dL) ? 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 08/01/[address] scan and MRI brain reviewed PET scan reviewed and shows new lesion in the left adrenal gland Brain MRI negative Patient is complaining of chest pain and shortness of breath It can be from pulmonary embolism or blood clot Will send patient to the emergency room Patient need evaluation Return to clinic after the ER visit #2 rash resolved Once patient is treated for her acute symptoms, adrenal gland can be treated with radiation She will also need biopsy of the adrenal gland and will do NGS panel on the adrenal gland ORDERS: Order # Description [id number] PET/CT of Skull to mid-thigh for Restaging RETURN TO CLINIC: I reviewed the diagnosis, prognosis, and recommended treatment/procedure options with the patient (and/or their legal service center representative), including the potential benefits, risks, side effects and alternative therapies. We also discussed the option of no treatment and the possibility of clinical trial participation, if applicable. All questions were addressed, and they demonstrated understanding. They provided informed consent to proceed with the proposed plan of care. BILLING AND COMPLIANCE: I reviewed external records from providers outside my specialty as summarized above. I spent a total of 50 minutes on this patient?s care on the day of their visit excluding time spent related to any billed procedures. This time includes time spent with the patient as well as time spent documenting in the medical record, reviewing patients records and tests, obtaining history, placing orders, communicating with other healthcare professionals, counseling the patient, family or caregiver, and/or care coordination for the diagnoses above. Electronically Signed by: {Object.Sanct_ID*PnP.NameFL@M}, {Object.Sanct_ID*PnP.Suffix@U} D: {Object.Sanct_Date} T: {Object.Sanct_Time} CC: PCP: Shaila Read Referring: Shaila Read This document was completed utilizing speech recognition software. Grammatical errors, random word insertions, pronoun errors, and incomplete sentences are an occasional consequence of this system due to software limitations, ambient noise, and hardware issues. Any formal questions or concerns about the content, text or information contained within the body of this dictation should be directly addressed to the provider for clarification.
== END 2025-02-11 23:59 | disposition home or self-care (01) ==
LOC: SCTC 10:36
PROVIDERS: PCP Family Medicine; Referring Provider Family Medicine; Visit Provider Internal Medicine Hematology & Oncology
DX: C34.31 Malignant neoplasm of lower lobe, right bronchus or lung (principal); C79.51 Secondary malignant neoplasm of bone; Z92.3 Personal history of irradiation; R07.9 Chest pain, unspecified; R06.02 Shortness of breath; E27.8 Other specified disorders of adrenal gland
CPT/HCPCS: 99212; G0463